=== PATIENT | male | born 1960 | race Caucasian/White ===

== ENCOUNTER → 2019-12-13 14:35 | Outpatient (BNVA) | payer OTHER, SELFPAY | PROVIDERS: Visit Provider Family Medicine Adult Medicine | DX: M54.12 Radiculopathy, cervical region (principal); M54.16 Radiculopathy, lumbar region; M25.511 Pain in right shoulder; F17.200 Nicotine dependence, unspecified, uncomplicated; Z79.891 Long term (current) use of opiate analgesic | CPT/HCPCS: 99214 ==

== ENCOUNTER → 2020-01-12 15:15 | Outpatient (BNVA) | payer OTHER, SELFPAY | PROVIDERS: PCP Internal Medicine; Visit Provider Family Medicine Adult Medicine | DX: M54.16 Radiculopathy, lumbar region (principal); M54.12 Radiculopathy, cervical region; Z79.891 Long term (current) use of opiate analgesic | CPT/HCPCS: 99212 ==

== ENCOUNTER 2020-01-24 13:55 | Outpatient (REF) | payer OTHER, SELFPAY | END 2020-01-24 13:56 | disposition home or self-care (01) | LOC: HO.LAB 13:55 | PROVIDERS: Visit Provider Internal Medicine | DX: Z20.828 Contact with and (suspected) exposure to other viral communicable diseases (principal) | CPT/HCPCS: C9803; U0003 ==

== ENCOUNTER 2020-01-25 10:00 | Outpatient (RCR) | payer OTHER, SELFPAY | END 2020-02-15 16:50 | disposition other institution (70) | LOC: HO.PT 10:00 | PROVIDERS: Visit Provider Physician Assistant | DX: M54.2 Cervicalgia (principal); M79.601 Pain in right arm; R20.0 Anesthesia of skin | CPT/HCPCS: 97014; 97110; 97112; 97140; 97162 ==

== ENCOUNTER → 2020-02-09 15:01 | Outpatient (BNVA) | payer OTHER, SELFPAY | PROVIDERS: Visit Provider Family Medicine Adult Medicine | DX: M54.16 Radiculopathy, lumbar region (principal); M54.12 Radiculopathy, cervical region | CPT/HCPCS: 99212 ==

== ENCOUNTER 2020-03-08 09:40 | Outpatient (REF) | payer OTHER, SELFPAY ==
[2020-03-08 10:25] LABS: MANUAL DIFF FLAG NO
[2020-03-08 10:30] LABS: Basophils Percent Auto 0.4 % (0-2); Eosinophils Absolute Auto 0.1 X10*3/uL (0.0-0.4); Hematocrit 46.3 % (42-52); Imm Gran Abs Auto 0.02 X10*3/uL (0.00-0.03); Imm Gran Pct Auto 0.2 % (0.0-0.4); Lymphocytes Absolute Auto 2.1 X10*3/uL (1.2-4.9); Lymphocytes Percent Auto 21.3 % (20-40); Mean Corpuscular HGB Conc 34.6 g/dl (31.0-36.0); Mean Corpuscular Hemoglobin 29.7 pg (27.0-33.0); Mean Corpuscular Volume 85.9 fL (80-98); Mean Platelet Volume 10.7 fL (9.4-12.4); Monocytes Absolute Auto 0.5 X10*3/uL (0.1-1.2); Monocytes Percent Auto 4.9 % (2-11); Neutrophils Percent Auto 72.2 % (45-73); Platelet Count 258 X10*3/uL (160-400); Red Blood Count 5.39 X10*6/uL (4.60-5.80); Red Cell Distribution Width 11.9 % (11.0-16.0); White Blood Count 9.6 X10*3/uL (4.8-10.8)
[2020-03-08 10:46] LABS: Glucose Urine UA >=1000 MG/DL (NEG); Leukocyte Esterase Urine NEG (NEG); Nitrite Urine NEG (NEG); Urine Blood TRACE (NEG); Urine Ketones NEG (NEG); Urine Protein NEG (NEG-TRACE)
[2020-03-08 10:47] LABS: Appearance Urine CLEAR; Color Urine YELLOW
[2020-03-08 11:02] LABS: Anion Gap 14 (12-20); Blood Urea Nitrogen 19 mg/dL (9-16); Carbon Dioxide 26 mmol/L (22-29); Chloride 105 mmol/L (96-108); Estimated Glomerular Filt Rate 49; Glucose Random 330 mg/dL (60-115); Potassium 4.3 mmol/l (3.3-5.1); Sodium 141 mmol/L (135-145)
[2020-03-08 11:05] LABS: Mucus Urine TRACE /LPF; RBC Urine 0 /HPF (0); Squamous Epithelial Cell Urine TRACE /LPF; WBC Urine 0-2 /HPF (0-4)
== END 2020-03-08 09:41 | disposition home or self-care (01) ==
LOC: HO.LAB 09:40
PROVIDERS: PCP Internal Medicine; Visit Provider Internal Medicine
DX: Z00.00 Encounter for general adult medical examination without abnormal findings (principal); R51.9 Headache, unspecified; N39.0 Urinary tract infection, site not specified
CPT/HCPCS: 36415; 80048; 81001; 85025

== ENCOUNTER 2020-03-12 09:31 | Outpatient (REF) | payer OTHER, SELFPAY | END 2020-03-12 09:32 | disposition home or self-care (01) | LOC: HO.LAB 09:31 | PROVIDERS: PCP Internal Medicine; Visit Provider Internal Medicine | DX: Z20.822 Contact with and (suspected) exposure to COVID-19 (principal) | CPT/HCPCS: 36415; C9803; U0003 ==

== ENCOUNTER → 2020-04-10 08:42 | Outpatient (BNVA) | payer OTHER, SELFPAY | PROVIDERS: Visit Provider Family Medicine Adult Medicine | DX: M54.16 Radiculopathy, lumbar region (principal); M54.12 Radiculopathy, cervical region; Z79.899 Other long term (current) drug therapy | CPT/HCPCS: 99212 ==

== ENCOUNTER → 2020-05-08 11:24 | Outpatient (BNVA) | payer OTHER, SELFPAY | PROVIDERS: Visit Provider Family Medicine Adult Medicine | DX: M54.16 Radiculopathy, lumbar region (principal); M54.12 Radiculopathy, cervical region; Z79.899 Other long term (current) drug therapy | CPT/HCPCS: 99212 ==

== ENCOUNTER 2020-06-06 13:59 | Outpatient (REF) | payer OTHER, SELFPAY | END 2020-06-06 14:00 | disposition home or self-care (01) | LOC: HO.HAP 13:59 | PROVIDERS: Visit Provider Internal Medicine | DX: Z46.1 Encounter for fitting and adjustment of hearing aid (principal) | CPT/HCPCS: V5266 ==

== ENCOUNTER → 2020-06-08 09:34 | Outpatient (BNVA) | payer OTHER, SELFPAY | PROVIDERS: PCP Internal Medicine; Visit Provider Nurse Practitioner Family | DX: M54.16 Radiculopathy, lumbar region (principal); M54.12 Radiculopathy, cervical region | CPT/HCPCS: 99212 ==

== ENCOUNTER 2020-06-18 09:38 | Outpatient (REF) | payer OTHER, SELFPAY ==
[2020-06-18 10:00] LABS: COVID-19 Test Negative (Negative)
== END 2020-06-18 09:39 | disposition home or self-care (01) ==
LOC: HO.LAB 09:38
PROVIDERS: Visit Provider Internal Medicine
DX: Z20.822 Contact with and (suspected) exposure to COVID-19 (principal)
CPT/HCPCS: 36415; 87635; C9803

== ENCOUNTER 2020-07-30 08:50 | Outpatient (REF) | payer OTHER, SELFPAY ==
--- NOTE | ~2020-07-30 | MR_ITS ---
EXAMINATION: MR LUMBAR SPINE WITHOUT CONTRAST CLINICAL INFORMATION: Lumbar radiculopathy. COMPARISON: None TECHNIQUE: MRI of the lumbar spine was obtained using routine sequences without contrast. FINDINGS: There is transitional lumbosacral anatomy with a hypoplastic disc seen at L5-S1. Lumbar vertebral bodies maintain normal heights and alignment. No significant disc height loss is seen. There is no subchondral endplate edema. The distal spinal cord appears normal. The conus medullaris terminates normally at the T12 level. A sacral Tarlov cyst is noted. Multiple bilateral T2 hyperintense renal cysts are noted (no follow-up recommended). The extraspinal soft tissues are otherwise within normal limits. SPINAL LEVELS: L1-L2: Mild disc bulging. No spinal canal or neural foraminal stenosis. L2-L3: Mild disc bulging. No spinal canal or neural foraminal stenosis. L3-L4: Disc bulging with mild facet arthropathy. Mild flattening the ventral thecal sac. Small right foraminal protrusion minimally narrowing the neural foramen. L4-L5: Disc bulging with mild facet arthropathy. No spinal canal stenosis. Shallow right foraminal protrusion mildly narrows the right neural foramen. L5-S1: Hypoplastic disc. No spinal canal or neural foraminal stenosis. MR/MR lumbar spine wo con IMPRESSION: Transitional lumbosacral anatomy with hypoplastic disc seen at L5-S1. Minimal spondylotic changes are noted without significant narrowing of the spinal canal or foraminal nerve root compression.
== END 2020-07-30 08:51 | disposition home or self-care (01) ==
LOC: HO.MRI 08:50
PROVIDERS: Visit Provider Neurological Surgery
DX: M54.16 Radiculopathy, lumbar region (principal)
CPT/HCPCS: 72148

== ENCOUNTER → 2020-07-31 08:01 | Outpatient (BNVA) | payer OTHER, SELFPAY | PROVIDERS: PCP Internal Medicine; Visit Provider Family Medicine Adult Medicine | DX: M54.16 Radiculopathy, lumbar region (principal); M54.12 Radiculopathy, cervical region | CPT/HCPCS: 99212 ==

== ENCOUNTER → 2020-08-28 10:29 | Outpatient (BNVA) | payer OTHER, SELFPAY | PROVIDERS: PCP Internal Medicine; Visit Provider Family Medicine Adult Medicine | DX: M54.16 Radiculopathy, lumbar region (principal); M54.12 Radiculopathy, cervical region | CPT/HCPCS: 99212 ==

== ENCOUNTER 2020-09-11 13:30 | Outpatient (REF) | payer OTHER, SELFPAY ==
[2020-09-11 14:08] LABS: MANUAL DIFF FLAG NO
[2020-09-11 14:20] LABS: Basophils Percent Auto 0.6 % (0-2); Eosinophils Absolute Auto 0.1 X10*3/uL (0.0-0.4); Eosinophils Percent Auto 1.3 % (0-4); Hematocrit 46.6 % (42-52); Hemoglobin 15.7 g/dl (14.0-18.0); Imm Gran Abs Auto 0.02 X10*3/uL (0.00-0.03); Imm Gran Pct Auto 0.3 % (0.0-0.4); Lymphocytes Absolute Auto 1.7 X10*3/uL (1.2-4.9); Lymphocytes Percent Auto 24.6 % (20-40); Mean Corpuscular HGB Conc 33.7 g/dl (31.0-36.0); Mean Corpuscular Hemoglobin 29.3 pg (27.0-33.0); Mean Corpuscular Volume 86.9 fL (80-98); Mean Platelet Volume 10.7 fL (9.4-12.4); Monocytes Absolute Auto 0.5 X10*3/uL (0.1-1.2); Monocytes Percent Auto 6.8 % (2-11); Neutrophils Absolute Auto 4.6 X10*3/uL (2.0-8.3); Neutrophils Percent Auto 66.4 % (45-73); Platelet Count 240 X10*3/uL (160-400); Red Blood Count 5.36 X10*6/uL (4.60-5.80); Red Cell Distribution Width 12.7 % (11.0-16.0); White Blood Count 6.9 X10*3/uL (4.8-10.8)
[2020-09-11 14:34] LABS: Anion Gap 18 (12-20); Blood Urea Nitrogen 11 mg/dL (9-16); Calcium 10.1 mg/dL (8.4-10.2); Carbon Dioxide 19 mmol/L (22-29); Chloride 109 mmol/L (96-108); Cholesterol 113 mg/dL; Estimated Glomerular Filt Rate 55; Glucose Random 108 mg/dL (60-115); HDL Cholesterol 30 mg/dL; LDL Cholesterol Calculated 60 mg/dl; Potassium 4.8 mmol/L (3.3-5.1); Sodium 141 mmol/L (135-145); Triglycerides 116 mg/dL
[2020-09-11 14:48] LABS: Creatinine Urine 150.39 mg/dL; Microalbum/Creatinine Ratio Ur 71.1 ug/mg cr
[2020-09-15 15:32] LABS: Testosterone, Free 57.6 pg/mL (35.0-155.0); Testosterone, Total 384 ng/dL (250-1100)
[2020-09-15 19:56] LABS: Vitamin D 25-OH, D2 <4 ng/mL; Vitamin D 25-OH, D3 31 ng/mL; Vitamin D 25-OH, Total 31 ng/mL (30-100)
== END 2020-09-11 13:31 | disposition home or self-care (01) ==
LOC: HO.LAB 13:30
PROVIDERS: Absent Provider Internal Medicine; PCP Internal Medicine; Visit Provider Internal Medicine
DX: I12.9 Hypertensive chronic kidney disease with stage 1 through stage 4 chronic kidney disease, or unspecified chronic kidney disease (principal); N18.31 Chronic kidney disease, stage 3a; E11.22 Type 2 diabetes mellitus with diabetic chronic kidney disease; E78.5 Hyperlipidemia, unspecified; D64.9 Anemia, unspecified; R21 Rash and other nonspecific skin eruption; N52.9 Male erectile dysfunction, unspecified; E55.9 Vitamin D deficiency, unspecified
CPT/HCPCS: 36415; 80048; 80061; 82043; 82306; 84402; 84403; 85025

== ENCOUNTER → 2020-09-25 11:03 | Outpatient (BNVA) | payer OTHER, SELFPAY | PROVIDERS: PCP Internal Medicine; Visit Provider Family Medicine Adult Medicine | DX: M54.16 Radiculopathy, lumbar region (principal); M54.12 Radiculopathy, cervical region | CPT/HCPCS: 99212 ==

== ENCOUNTER → 2020-10-23 13:14 | Outpatient (BNVA) | payer OTHER, SELFPAY | PROVIDERS: PCP Internal Medicine; Visit Provider Nurse Practitioner Family | DX: M54.16 Radiculopathy, lumbar region (principal); M54.12 Radiculopathy, cervical region; M25.511 Pain in right shoulder | CPT/HCPCS: 99212 ==

== ENCOUNTER → 2020-11-20 12:44 | Outpatient (BNVA) | payer OTHER, SELFPAY | PROVIDERS: PCP Internal Medicine; Visit Provider Family Medicine Adult Medicine | DX: Z51.81 Encounter for therapeutic drug level monitoring (principal); M54.16 Radiculopathy, lumbar region; M54.12 Radiculopathy, cervical region | CPT/HCPCS: 99212 ==

== ENCOUNTER → 2020-12-18 13:45 | Outpatient (BNVA) | payer OTHER, SELFPAY | PROVIDERS: PCP Internal Medicine; Visit Provider Family Medicine Adult Medicine | DX: M54.12 Radiculopathy, cervical region (principal); M54.16 Radiculopathy, lumbar region; F17.210 Nicotine dependence, cigarettes, uncomplicated | CPT/HCPCS: 99212 ==

== ENCOUNTER → 2021-01-15 13:37 | Outpatient (BNVA) | payer OTHER, SELFPAY | PROVIDERS: Visit Provider Family Medicine Adult Medicine | DX: Z51.81 Encounter for therapeutic drug level monitoring (principal); M54.16 Radiculopathy, lumbar region; M54.12 Radiculopathy, cervical region | CPT/HCPCS: 99212 ==

== ENCOUNTER 2021-01-17 13:48 | Outpatient (REF) | payer OTHER, SELFPAY | END 2021-01-17 13:49 | disposition home or self-care (01) | LOC: HO.HAP 13:48 | PROVIDERS: Visit Provider Internal Medicine | DX: Z46.1 Encounter for fitting and adjustment of hearing aid (principal); H90.3 Sensorineural hearing loss, bilateral | CPT/HCPCS: V5266 ==

== ENCOUNTER 2021-01-17 14:21 | Outpatient (REF) | payer SELFPAY | END 2021-01-17 14:22 | disposition home or self-care (01) | LOC: HO.HAP 14:21 | PROVIDERS: Visit Provider Internal Medicine | DX: Z46.1 Encounter for fitting and adjustment of hearing aid (principal); H90.3 Sensorineural hearing loss, bilateral | CPT/HCPCS: V5267 ==

== ENCOUNTER 2021-01-18 12:53 | Outpatient (REF) | payer OTHER, SELFPAY | END 2021-01-18 12:54 | disposition home or self-care (01) | LOC: HO.HAP 12:53 | PROVIDERS: PCP Internal Medicine; Visit Provider Internal Medicine | DX: Z46.1 Encounter for fitting and adjustment of hearing aid (principal); H90.3 Sensorineural hearing loss, bilateral | CPT/HCPCS: 92593 ==

== ENCOUNTER → 2021-01-25 11:07 | Outpatient (BNVA) | payer OTHER, SELFPAY | PROVIDERS: PCP Internal Medicine; Visit Provider Internal Medicine | DX: M54.16 Radiculopathy, lumbar region (principal); M47.816 Spondylosis without myelopathy or radiculopathy, lumbar region | CPT/HCPCS: 99202 ==

== ENCOUNTER 2021-03-06 07:46 | Outpatient (REF) | payer OTHER, SELFPAY ==
--- NOTE | ~2021-03-06 | FL_ITS ---
EXAMINATION: XR FLUOROSCOPY WITH IMAGES CLINICAL INFORMATION: M47.816 - Spondylosis without myelopathy or radiculopathy COMPARISON: MR lumbar spine 07/30/2020 TECHNIQUE: Fluoroscopy performed by Dr. Juan Vásquez. Fluoroscopy time: 0.4 minutes DAP: 1.40 Gycm2 Images: 3 FINDINGS: There are spinal needles overlying the bilateral outer L3, L4, and L5 neural foramen. There is contrast seen in the respective nerve sheaths. Some early transforaminal epidural extension is suggested. No visible vascular communication. FL/FL guidance in treatment room IMPRESSION: Fluoroscopy for pain management procedures.
== END 2021-03-06 07:47 | disposition home or self-care (01) ==
LOC: HO.RADIR 07:46
PROVIDERS: Visit Provider Internal Medicine
DX: M47.816 Spondylosis without myelopathy or radiculopathy, lumbar region (principal); Z79.899 Other long term (current) drug therapy; F17.210 Nicotine dependence, cigarettes, uncomplicated
CPT/HCPCS: 64493; 64494; Q9967

== ENCOUNTER → 2021-03-15 07:52 | Outpatient (BNVA) | payer OTHER, SELFPAY | PROVIDERS: PCP Internal Medicine; Visit Provider Internal Medicine | DX: E11.69 Type 2 diabetes mellitus with other specified complication (principal); N52.1 Erectile dysfunction due to diseases classified elsewhere; M47.816 Spondylosis without myelopathy or radiculopathy, lumbar region | CPT/HCPCS: 99202; 99212 ==

== ENCOUNTER 2021-03-18 11:42 | Outpatient (REF) | payer OTHER, SELFPAY ==
[2021-03-18 13:57] LABS: Binax Internal Control QC Valid; Binax Now Covid-19 Ag Positive (Negative)
== END 2021-03-18 11:43 | disposition home or self-care (01) ==
LOC: HO.LAB 11:42
PROVIDERS: Visit Provider Internal Medicine
DX: Z20.822 Contact with and (suspected) exposure to COVID-19 (principal)
CPT/HCPCS: 36415; C9803

== ENCOUNTER 2021-05-01 05:49 | Outpatient (REF) | payer OTHER, SELFPAY ==
--- NOTE | ~2021-05-01 | FL_ITS ---
EXAMINATION: XR FLUOROSCOPY WITH IMAGES CLINICAL INFORMATION: Spondylosis without myelopathy or radiculopathy. COMPARISON: None. TECHNIQUE: Fluoroscopy performed by Maria Teresa Montejo. Fluoroscopy time: 0.2 minutes DAP: 0.910 Gycm2 Images: 3 FINDINGS: There are needles positioned lateral to the bilateral L3 and L4 pedicles with contrast opacifying the soft tissues. The visualized vertebral heights and intervertebral disc spaces are normal. FL/FL guidance in treatment room IMPRESSION: Fluoroscopy was provided to the referring physician for pain management.
== END 2021-05-01 05:50 | disposition home or self-care (01) ==
LOC: HO.RADIR 05:49
PROVIDERS: Visit Provider Internal Medicine
DX: M47.816 Spondylosis without myelopathy or radiculopathy, lumbar region (principal); M54.16 Radiculopathy, lumbar region; F17.210 Nicotine dependence, cigarettes, uncomplicated
CPT/HCPCS: 64493; 64494; J1040; Q9967

== ENCOUNTER → 2021-05-03 09:14 | Outpatient (BNVA) | payer OTHER, SELFPAY | PROVIDERS: PCP Internal Medicine; Visit Provider Internal Medicine | DX: M47.816 Spondylosis without myelopathy or radiculopathy, lumbar region (principal); Z98.890 Other specified postprocedural states | CPT/HCPCS: Q3014 ==

== ENCOUNTER 2021-05-23 06:41 | Outpatient (REF) | payer OTHER, SELFPAY ==
[2021-05-23 08:00] LABS: Alanine Aminotransferase 34 U/L (0-40); Albumin Level 4.8 g/dL (3.5-5.0); Alkaline Phosphatase 56 U/L (39-117); Anion Gap 13 (12-20); Aspartate Amino Transferase 19 U/L (5-37); Bilirubin Total 0.9 mg/dL (0.0-1.0); Blood Urea Nitrogen 16 mg/dL (9-16); Calcium 10.6 mg/dL (8.4-10.2); Carbon Dioxide 26 mmol/L (22-29); Chloride 110 mmol/L (96-108); Cholesterol 114 mg/dL; Estimated Glomerular Filt Rate 47; Glucose Fasting 135 mg/dL (60-99); HDL Cholesterol 32 mg/dL; LDL Cholesterol Calculated 60 mg/dl; Sodium 144 mmol/L (135-145); Total Protein 7.5 g/dL (6.5-8.0); Triglycerides 112 mg/dL
[2021-05-23 09:19] LABS: Creatinine Urine 212.45 mg/dL; Microalbum/Creatinine Ratio Ur 84.2 ug/mg cr
== END 2021-05-23 06:42 | disposition home or self-care (01) ==
LOC: HO.LAB 06:41
PROVIDERS: PCP Internal Medicine; Visit Provider Internal Medicine
DX: E11.9 Type 2 diabetes mellitus without complications (principal); E78.5 Hyperlipidemia, unspecified
CPT/HCPCS: 36415; 80053; 80061; 82043

== ENCOUNTER 2021-06-13 10:58 | Outpatient (AMB) | payer OTHER, SELFPAY ==
--- NOTE | 2021-06-13 11:00 | MHC.OFFVIS ---
Intake Intake Visit Reasons: 3 mth follow up ED Intake Note: Patient is present for ed follow up Bookkeepers Supervisor Required: No Accompanied by: Self / Same As Patient Allergies No Known Allergies Allergy (Verified 04/27/23 09:03) HPI HPI Comments History of Present Illness Details Blas is a pleasant male. He is a patient of Dr. Carter. He is seen for the following urologic conditions - progress erectile dysfunction Yakut translation provided in office by qualified medical engineer Erectile dysfunction background diabetes Progressive diabetic - HbA1c 6.1 Symptoms progressive Able to obtain but cannot maintain erection Previously used sildenafil 50 mg Discussion today focused on daily low-dose tadalafil Prescription provided Review in 3 months [facility] Medical History (Updated 04/27/23 @ 09:26 by Opal Carter MD) Erectile dysfunction associated with type 2 diabetes mellitus Erectile dysfunction CKD (chronic kidney disease) stage 3, GFR 30-59 ml/min Lumbar spondylosis Microalbuminuria Erectile dysfunction CKD (chronic kidney disease) Dyslipidemia Essential hypertension Diabetes mellitus Smoker Right shoulder pain Lumbar radiculopathy Cervical radiculopathy History of heroin abuse Thoracic back pain Cervical pain Pain in right hand Pain in right knee Pain in right shoulder Surgical History Hx of neck surgery History of shoulder surgery History of hydrocelectomy Hx of cholecystectomy H/O shoulder surgery History of knee surgery H/O hand surgery Family History Father Esophageal cancer Mother Diabetes Hypertension Dementia Social History Household Members: Family Household Members Other:: lives w ex-, daughter & son lives upstairs Housing: House Do you presently have visiting nurse or other home services: No Alcohol intake: former Patient Tobacco Use Status: Current everyday Tobacco user Tobacco use type: Cigarette Cigarette Packs Per Day: 0.5 Cigarettes Per Day: 10 e-Cigarette/Vaping Use: Never Used Second Hand Smoke Exposure: Yes service: No Current occupational status: disabled 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 Cognitive needs: No Hearing needs: No Vision needs: Yes (glasses) Review of Systems Const Denies chills and Denies fever(s) Card Reports no additional complaints and Denies syncope Resp Denies cough GI Denies abdominal pain and Denies heartburn Reports as per HPI and Denies change in libido Neuro Denies syncope Psych Denies change in libido Endo Denies change in libido Physical Exam Const General: cooperative, healthy appearing, comfortable and no acute distress Orientation/consciousness: patient oriented x3 HEENT Face and sinus: Yes normal facial exam Mouth: moist mucous membranes Neck Neck: Yes normal visual inspection, Yes full ROM and Yes trachea midline Chest Chest palpation & inspection: normal inspection of the chest Resp Effort & Inspection: normal respiratory effort, able to speak in complete sentences and no respiratory distress GI Inspection: Yes normal to inspection Back/Spine/Pelvis Cervical Spine: normal cervical lordosis Thoracic/Lumbar Spine: thoracic and lumbar spine normal to inspection Skin General skin exam: no rashes or lesions noted Neuro General: patient oriented x3, gait normal, tone normal and moves all extremities Extrem General: Yes normal to inspection and Yes capillary refill normal Assessment & Plan Assessment & Plan (1) Erectile dysfunction associated with type 2 diabetes mellitus: Code(s): E11.69 - Type 2 diabetes mellitus with other specified complication; N52.1 - Erectile dysfunction due to diseases classified elsewhere Plan Trial tadalafil Medications: New tadalafil [facility] DR33 [id number] 5 mg PO DAILY PRN 90 tabs 1RF sexual activity 90 days N52.2 - Drug-induced erectile dysfunction, N48.6 - Induration penis plastica Patient Instructions: Imaging studies, laboratory and physical exam results were discussed and reviewed in detail. No major barriers to patient understanding were identified. An opportunity to ask questions regarding the treatment plan was provided. All questions were answered. The patient expressed understanding and agreement with the above treatment plan. The patient is aware they should contact our office by phone for worsening of their current condition or the appearance of new urologic symptoms. Compliance is encouraged with any medications and followup testing that is ordered. It is a privilege to participate in the urologic care of your patient. If you have any questions or concerns regarding treatment for the above conditions, or other urologic issues, please do not hesitate to contact me. The office telephone contact is [phone]. This note is constructed using voice recognition software. While every effort has been made to ensure accuracy rn transition errors may have been included. Yours sincerely, Dr Vinayak Kwong MD, [facility] - Urology Providers of Expert, Compassionate Care for the Genitourinary System Telehealth Telehealth Location of provider rendering services: practice address Location of patient: address on file Patient Identification confirmed using: Name, : Yes Telehealth method: voice only Patient verbally consented to treatment: Yes Patient verbally consented to billing insurance company: Yes Patient informed of any privacy concerns related to visit: Yes Coding Level of Care Code Est Pt Level 3 (87568) Diagnoses Erectile dysfunction associated with type 2 diabetes mellitus E11.69; N52.1
== END 2021-06-13 12:04 | disposition home or self-care (01) ==
LOC: HO.HUSH 10:58
PROVIDERS: PCP Internal Medicine; Visit Provider Urology
DX: E11.69 Type 2 diabetes mellitus with other specified complication (principal); N52.1 Erectile dysfunction due to diseases classified elsewhere
CPT/HCPCS: 99499

== ENCOUNTER → 2021-06-13 10:58 | Outpatient (BNVA) | payer OTHER, SELFPAY | PROVIDERS: PCP Internal Medicine; Visit Provider Urology | DX: Z13.89 Encounter for screening for other disorder (principal) ==

== ENCOUNTER 2021-07-31 09:14 | Day surgery (SDC) | payer OTHER, SELFPAY ==
--- NOTE | ~2021-07-31 | FL_ITS ---
EXAMINATION: XR FLUOROSCOPY WITH IMAGES CLINICAL INFORMATION: RFA COMPARISON: MR lumbar spine 07/30/2020 TECHNIQUE: Fluoroscopy performed by Dr. Vásquez. Fluoroscopy time: 0.4 minutes DAP: 1.11 Gycm2 Images: 3 FINDINGS: There are needles/electrodes overlying the outer right L3, L4, and L5 neural foramen. FL/FL guidance in OR IMPRESSION: Fluoroscopy for pain management procedures.
[2021-07-31 09:38] VITALS: BMI 23.7
[2021-07-31 12:10] VITALS: BP 135/89; PULSE 66; RESP 16; TEMP 36.7; O2SAT 100
--- NOTE | 2021-07-31 12:26 | MHC.SHP ---
Pre-Procedural Eval Section A Date of Service: 07/31/21 The patient is an INPATIENT: No Changes since office visit: Yes Patient answered all questions The History & Physical has been completed within 30 days and I have reviewed it.: No Section B Chief Complaint: Spondylosis without myelopathy or radiculopathy, l Allergies: Allergies Allergy/AdvReac Type Severity Reaction Status Date / Time No Known Allergies Allergy Verified 07/31/21 10:08 Plan Diagnosis/Plan: Unchanged I have reviewed the history and physical and performed a pertinent physical examination on my patient. No changes have occurred unless specified.
--- NOTE | 2021-07-31 12:27 | W.PM.OPN ---
Operative Note Operative Note Date of Service: 07/31/21 Narrative: Radiofrequency lesioning medial branch nerves, Right L3, L4 medial branches and L5 dorsal ramus (L4/5 and L5/S1) (2 levels, 3 nerves) After obtaining written consent, pre-procedure blood pressure and heart rate were stable and recorded in the nursing record. Standard monitors were applied. The patient was placed in the prone position. The lumbar area was prepped with chloraprep and draped in sterile fashion. The skin over the target for each medial branch nerve was anesthetized with 0.5% lidocaine. An 18 gauge radiofrequency cannula was advanced to each target site under fluoroscopic guidance. No paresthesias were elicited with needle placement and aspiration was negative for heme and CSF. Impedences were verified under 600 ohms. Sensory testing (50 Hz) and then motor testing (2 Hz) confirmed needle placement at each site within the appropriate voltage thresholds. Each site was injected with 1 ml 2% preservative-free lidocaine. Radiofrequency lesioning was performed for 90 seconds at 80 deg Celcius. Each site was then injected with 0.5ml 0.5% ropivacaine. The needle was removed, skin cleansed and a sterile bandage was applied. The patient tolerated the procedure well and no complications were encountered. Following the procedure the patient's vital signs were stable. The patient was discharged home in good condition with post-procedural instructions. Time Out: Immediately prior to the procedure, the following was verbally confirmed that there is a signed consent form and that the correct patient, planned procedure, site and side are consistent with documentation and that necessary equipment and/or blood products are available prior to the start of the case. Complications: none EBL: <5 cc
--- NOTE | 2021-07-31 12:27 | PM.OP ---
Brief Operative Note Date of Service: 07/31/21 Pre-op diagnosis: Lumbar spondylosis Post-op diagnosis: same Procedure: Lumbar medial branches L3/4, L4/5 and L5DR radiofrequency ablation Surgeon: Juan Vásquez MD Anesthesia: local Was an Assembler Installer General used for this Procedure?: No Estimated blood loss (mL): 1 Pathology: none sent Condition: stable Disposition: same day
== END 2021-07-31 12:28 | disposition home or self-care (01) ==
PROVIDERS: PCP Internal Medicine; Visit Provider Internal Medicine
PROC: (CPT 64635; principal; 2021-07-31 11:00)
DX: M47.816 Spondylosis without myelopathy or radiculopathy, lumbar region (principal); E11.22 Type 2 diabetes mellitus with diabetic chronic kidney disease; I12.9 Hypertensive chronic kidney disease with stage 1 through stage 4 chronic kidney disease, or unspecified chronic kidney disease; N18.30 Chronic kidney disease, stage 3 unspecified; N52.9 Male erectile dysfunction, unspecified; E78.5 Hyperlipidemia, unspecified; Z79.84 Long term (current) use of oral hypoglycemic drugs; Z79.899 Other long term (current) drug therapy; F17.210 Nicotine dependence, cigarettes, uncomplicated; F11.11 Opioid abuse, in remission
CPT/HCPCS: 64635; 64636; J2795

== ENCOUNTER → 2021-08-30 09:50 | Outpatient (BNVA) | payer OTHER, SELFPAY | PROVIDERS: PCP Internal Medicine; Visit Provider Internal Medicine | DX: M47.816 Spondylosis without myelopathy or radiculopathy, lumbar region (principal) | CPT/HCPCS: 99212 ==

== ENCOUNTER 2021-11-06 10:37 | Day surgery (SDC) | payer OTHER, SELFPAY ==
--- NOTE | ~2021-11-06 | FL_ITS ---
EXAMINATION: XR FLUOROSCOPY WITH IMAGES CLINICAL INFORMATION: Stimulator trial, lumbar COMPARISON: 07/31/2021 TECHNIQUE: Fluoroscopy performed by Dr. Juan Vásquez. Fluoroscopy time: 0.2 minutes. Cumulative Dose: 3.36 mGy. DAP: 0.593 Gy-cm2. Images: 2. FINDINGS: Radiopaque needle and wire in overlies the lower lumbar spine. This is seen at the right aspect at the L4-L5 level. FL/FL guidance in OR IMPRESSION: Fluoroscopic guidance for lumbar intervention. Please refer to procedural report for further information.
[2021-11-06 11:03] VITALS: BP 114/82; PULSE 81; RESP 16; TEMP 36.3; O2SAT 99; BMI 23.3
[2021-11-06] MEDS: LORazepam 1 MG TABLET PO (11:13)
[2021-11-06 12:35] VITALS: BP 113/72; PULSE 71; RESP 20; TEMP 37.1; O2SAT 99
--- NOTE | 2021-11-08 08:50 | MHC.SHP ---
Pre-Procedural Eval Section A Date of Service: 11/06/21 The patient is an INPATIENT: No Changes since office visit: Yes Patient answered all questions The History & Physical has been completed within 30 days and I have reviewed it.: Yes Section B Chief Complaint: Lumbar spondylosis, chronic pain syndrome Relevant Family History (Specify if Yes): No Relevant Social History: None Present Medications: None Medical History: Significant History History of Previous Operations: No relevant previous surgery Allergies: Allergies Allergy/AdvReac Type Severity Reaction Status Date / Time No Known Allergies Allergy Verified 08/30/21 10:01 Review of Systems Sugical H&P ROS: Negative: Constitution, Cardiovascular, Respiratory and Neurological Exam Surgical H&P Exam: Normal: HEENT, Normal: Heart and Normal: Lungs Plan Diagnosis/Plan: Unchanged I have reviewed the history and physical and performed a pertinent physical examination on my patient. No changes have occurred unless specified.
--- NOTE | 2021-11-08 08:52 | P.BOP_ITS ---
Brief Operative Note Date of Service: 11/06/21 Pre-op diagnosis: Lumbar spondylosis, chronic pain syndrome Post-op diagnosis: same Procedure: Temporary peripheral nerve stimulator placement at the L3 right medial branch nerve Implants: Sprint temporary peripheral nerve stimulation system Surgeon: Juan Vásquez MD Anesthesia: local Was an Herb Counselor used for this Procedure?: No Estimated blood loss (mL): 1 Pathology: none sent Condition: stable Disposition: same day
--- NOTE | 2021-11-08 08:53 | W.PM.OPN ---
Operative Note Operative Note Date of Service: 11/06/21 Narrative: Right L3 Lumbar Medial Branch Nerve Stimulation Lead Placement, SPR (Sprint) System ? After the risks, benefits and alternatives were discussed with the patient and informed consent was obtained, patient was placed in the prone position and padded to foster comfort. The skin overlying the lumbosacral spine was prepped and draped in sterile fashion. Fluoroscopy was used to identify the spinous process and lamina in the center of the patient?s region of pain. After identifying and marking the intended target along the course of the medial branch nerve, the skin around the planned entry point and the subcutaneous tissues were injected with lidocaine 1%. An introducer needle and stimulating probe were assembled, inserted and advanced along the intended course of the medial branch nerve as it traverses the lamina medial and inferior to the zygapophyseal joint, taking care to maintain the proper depth of insertion as the introducer is advanced under fluoroscopic guidance. The introducer needle was delivered to a location in proximity to the nerve. Multiple stimulation parameters were used to deliver stimulation to the target medial branch nerve in concert with stimulating at multiple positions around the nerve. Nerve target acquisition was confirmed noting generation of paresthesias in the paravertebral regions corresponding to the level being stimulated. Various electrical parameter combinations were tested, and the lead location was adjusted (physically relocated) until the patient indicated paresthesia/muscle tension overlapping the distribution of the patient?s typical region of pain. The stimulating probe was removed from the introducer and a percutaneous lead was guided through the needle and delivered to a location in similar proximity to the nerve. Final location was verified with electrical stimulation and documented with fluoroscopy. The introducer needle was removed, and the exposed end of the percutaneous lead was attached to an external stimulator unit. Various electrical parameter combinations were again tested until the patient indicated paresthesia or muscle tension overlapping the distribution of the patient?s typical region of pain. After confirming that lead impedance was in the normal range, the external unit was detached, the needle was removed, and the lead was anchored at the skin. The lead was threaded into the connector block and electrical continuity and desired patient response was confirmed. The connector block was attached to the external stimulator unit. The site was covered with a sterile occlusive dressing. The patient was observed for stability of vital signs and comfort.
== END 2021-11-06 13:03 | disposition home or self-care (01) ==
PROVIDERS: PCP Internal Medicine; Visit Provider Internal Medicine
PROC: (CPT 64555; principal; 2021-11-06 11:40)
DX: M47.816 Spondylosis without myelopathy or radiculopathy, lumbar region (principal); M62.830 Muscle spasm of back; G89.4 Chronic pain syndrome; Z79.84 Long term (current) use of oral hypoglycemic drugs; Z79.899 Other long term (current) drug therapy; F11.11 Opioid abuse, in remission; F17.210 Nicotine dependence, cigarettes, uncomplicated; Z98.890 Other specified postprocedural states
CPT/HCPCS: 64555; C1778

== ENCOUNTER → 2021-11-15 09:46 | Outpatient (BNVA) | payer OTHER, SELFPAY | PROVIDERS: PCP Internal Medicine; Visit Provider Internal Medicine | DX: M47.816 Spondylosis without myelopathy or radiculopathy, lumbar region (principal) | CPT/HCPCS: 99212 ==

== ENCOUNTER 2022-01-03 07:17 | Outpatient (REF) | payer OTHER, SELFPAY ==
[2022-01-03 08:59] LABS: Alanine Aminotransferase 29 U/L (0-40); Albumin Level 4.5 g/dL (3.5-5.0); Alkaline Phosphatase 53 U/L (39-117); Anion Gap 14 (12-20); Aspartate Amino Transferase 18 U/L (5-37); Bilirubin Total 0.7 mg/dL (0.0-1.0); Blood Urea Nitrogen 13 mg/dL (9-16); Calcium 9.4 mg/dL (8.4-10.2); Carbon Dioxide 26 mmol/L (22-29); Chloride 107 mmol/L (96-108); Cholesterol 105 mg/dL; Estimated Glomerular Filt Rate 52; Glucose Fasting 125 mg/dL (60-99); HDL Cholesterol 34 mg/dL; LDL Cholesterol Calculated 59 mg/dl; Potassium 4.7 mmol/L (3.3-5.1); Sodium 142 mmol/L (135-145); Total Protein 6.8 g/dL (6.5-8.0); Triglycerides 63 mg/dL
[2022-01-03 13:13] LABS: Microalbum/Creatinine Ratio Ur 70.3 ug/mg cr
== END 2022-01-03 07:18 | disposition home or self-care (01) ==
LOC: HO.LAB 07:17
PROVIDERS: PCP Internal Medicine; Visit Provider Nurse Practitioner Family
DX: E78.5 Hyperlipidemia, unspecified (principal); N18.30 Chronic kidney disease, stage 3 unspecified; E11.69 Type 2 diabetes mellitus with other specified complication; N52.1 Erectile dysfunction due to diseases classified elsewhere
CPT/HCPCS: 36415; 80053; 80061; 82043; Q3014

== ENCOUNTER → 2022-01-10 09:11 | Outpatient (BNVA) | payer OTHER, SELFPAY | PROVIDERS: PCP Internal Medicine; Visit Provider Nurse Practitioner Family | DX: M47.816 Spondylosis without myelopathy or radiculopathy, lumbar region (principal); Z45.89 Encounter for adjustment and management of other implanted devices | CPT/HCPCS: 99212 ==

== ENCOUNTER → 2022-05-12 13:42 | Outpatient (BNVA) | payer OTHER, SELFPAY | PROVIDERS: PCP Internal Medicine; Visit Provider Internal Medicine | DX: M54.16 Radiculopathy, lumbar region (principal) | CPT/HCPCS: 99212 ==

== ENCOUNTER 2022-07-09 05:59 | Outpatient (REF) | payer OTHER, SELFPAY ==
--- NOTE | ~2022-07-09 | FL_ITS ---
EXAMINATION: XR FLUOROSCOPY WITH IMAGES CLINICAL INFORMATION: M54.16 - Radiculopathy, lumbar region COMPARISON: MR lumbar spine 07/30/2020; CT abdomen and pelvis 03/08/2019. TECHNIQUE: Fluoroscopy Supervised By: Dr. Juan Vásquez. Fluoroscopy Time: 0.4 minutes. Cumulative Dose: 6.93 mGy. DAP: 0.831 Gycm2. Images: 7. 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 There is a spinal needle at the outer right 1st presacral neural foramen with transforaminal epidural contrast. No visible vascular communication. Another spinal needle is seen overlying the upper and mid right SI joint. FL/FL guidance in treatment room IMPRESSION: Fluoroscopy for pain management procedures.
== END 2022-07-09 06:00 | disposition home or self-care (01) ==
LOC: CF 05:59
PROVIDERS: Visit Provider Internal Medicine
DX: M54.16 Radiculopathy, lumbar region (principal); Q76.49 Other congenital malformations of spine, not associated with scoliosis; M54.12 Radiculopathy, cervical region; M54.6 Pain in thoracic spine; M79.18 Myalgia, other site
CPT/HCPCS: 20552; 64483; J1100; J3301

== ENCOUNTER → 2022-07-10 11:41 | Outpatient (BNVA) | payer OTHER, SELFPAY | PROVIDERS: PCP Internal Medicine; Visit Provider Urology | DX: E11.69 Type 2 diabetes mellitus with other specified complication (principal); N52.1 Erectile dysfunction due to diseases classified elsewhere | CPT/HCPCS: 99212 ==

== ENCOUNTER → 2022-08-08 07:43 | Outpatient (BNVA) | payer OTHER, SELFPAY | PROVIDERS: PCP Internal Medicine; Visit Provider Internal Medicine | DX: Q76.49 Other congenital malformations of spine, not associated with scoliosis (principal); M54.16 Radiculopathy, lumbar region | CPT/HCPCS: 99212 ==

== ENCOUNTER 2022-09-25 14:28 | Outpatient (AMB) | payer OTHER, SELFPAY ==
--- NOTE | 2022-09-25 14:42 | MHC.PC.OV ---
Vital Signs 09/25/22 14:48 Height 6 ft Weight 178 lb BMI 24.1 BP 126/80 Blood Pressure Location Lt brachial Position Sitting Intake Visit Reasons: PE Intake Note: Patient here for a physical exam Magnetic Locater Required: No Accompanied by: Self / Same As Patient Allergies No Known Allergies Allergy (Verified 09/25/22 14:58) Medication List - Last Reconciled 09/25/22 by Opal Carter MD amlodipine 5 mg PO DAILY blood sugar diagnostic (FreeStyle Lite Strips) USE 1 TEST STRIP ONCE DAILY blood-glucose meter (FreeStyle [place] kit) As directed hydroxyzine HCl 25 mg PO Q8H PRN lancets (FreeStyle Lancets) Use 1 lancet once a day lisinopril 10 mg (2 x 5 mg) PO DAILY 30 days naloxone 4 mg/actuation (Narcan) 4 mg intranasal Q2M PRN 1 day rosuvastatin 40 mg PO DAILY tadalafil 5 mg PO DAILY 90 days tadalafil 20 mg PO ONCE PRN 30 days Tobacco use date assessed: 04/01/22 Dental Screening Dental Screen Date: 09/25/22 Did you have a dental visit in the last 12 months?: Yes Did you have a dental problem in the last 6 months where you did not have access to dental care?: No Was dental information given to patient?: Patient has dentist HPI HPI Comments History of Present Illness Details This is a 61-year-old male with diabetes mellitus type 2 that comes for his physical exam. A1c within goal with low-carbohydrate diet. Denies any polyuria or polydipsia. Last colonoscopy was 2 years ago at [facility] a any was normal as per patient. [facility] Medical History (Updated 09/25/22 @ 15:51 by Opal Carter MD) Cervical pain Cervical radiculopathy CKD (chronic kidney disease) CKD (chronic kidney disease) stage 3, GFR 30-59 ml/min Diabetes mellitus Dyslipidemia Erectile dysfunction Erectile dysfunction Essential hypertension History of heroin abuse Lumbar radiculopathy Lumbar spondylosis Microalbuminuria Pain in right hand Pain in right knee Pain in right shoulder Right shoulder pain Smoker Thoracic back pain Surgical History H/O hand surgery H/O shoulder surgery History of hydrocelectomy History of knee surgery History of shoulder surgery Hx of cholecystectomy Hx of neck surgery Family History Father Esophageal cancer Mother Diabetes Hypertension Dementia Social History Household Members Other:: lives w ex-, daughter & son lives upstairs Housing: House Alcohol intake: never Patient Tobacco Use Status: Current everyday Tobacco user Tobacco use type: Cigarette Cigarette Packs Per Day: 0.5 Cigarettes Per Day: 10 e-Cigarette/Vaping Use: Never Used Second Hand Smoke Exposure: No service: No Current occupational status: disabled 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 Levi Palomares, Hannah Richard, Daniel Hicks and colleagues, with an educational evelyne from [employer]. Review of Systems Const All systems reviewed & are unremarkable except as noted in HPI and below Eyes Reports no additional complaints, Denies change in vision and Denies other visual disturbances Card Denies chest pain at rest, Denies chest pain with activity, Denies edema, Denies irregular heart rhythm, Denies claudication, Denies dyspnea, Denies dyspnea on exertion, Denies orthopnea, Denies paroxysmal nocturnal dyspnea and Denies slow heart rate Resp Denies cough, Denies dyspnea and Denies dyspnea on exertion GI Denies abdominal pain, Denies change in bowel habits, Denies excessive flatus, Denies nausea and Denies vomiting Denies urinary hesitancy, Denies urinary incontinence and Denies urinary urgency Musc Denies abnormal gait, Denies atrophy, Denies deformity and Denies limited range of motion Skin/Breast Denies bleeding lesions, Denies changing lesions and Denies rash Neuro Denies abnormal gait, Denies behavioral changes, Denies confusion and Denies lack of coordination Psych Denies behavioral changes and Denies confusion Physical exam (Primary Care) Vital Signs: Last Vital Signs BP 126/80 09/25/22 14:48 BMI result Body Mass Index 24.1 Tobacco/Smoking Status: Tobacco use Status Tobacco use date assessed 04/01/22 09/25/22 14:46 Patient Tobacco Use Status Current everyday Tobacco 09/25/22 14:46 Tobacco use type Cigarette 09/25/22 14:46 e-Cigarette/Vaping Use Never Used 09/25/22 14:46 Thrive Assessment: Date of Thrive Assessment Date Thrive assessed 04/01/22 09/25/22 14:46 Const General: No confusion Orientation/consciousness: patient oriented x3 and No confusion HENMT Head: Yes normal to inspection, Yes normocephalic and Yes atraumatic Ears: external ears normal General nose exam: Normal external nose present and No nasal discharge present Face and sinus: Yes sinuses nontender Mouth: lip normal Eyes General: appearance normal, both eyes and all related structures Eyelids: Yes eyelids normal Conjunctivae: conjunctivae normal Neck Neck: Yes normal visual inspection and Yes supple Resp Effort & Inspection: normal respiratory effort Auscultation: clear to auscultation bilaterally Cardio Jugular venous distension: no JVD Rate: regular rate Rhythm: regular rhythm Heart sounds: S1 normal heart sound present and S2 normal heart sound present GI Inspection: Yes normal to inspection Palpation (GI): Soft to palpation and nontender Auscultation: normal bowel sounds Skin General skin exam: no rashes or lesions noted Neuro General: patient oriented x3, no focal motor deficits and No confusion Extrem General: Yes full ROM Psych Appearance: grossly normal Results AMB Hemoglobin A1c AMB Hemoglobin A1c 6.1 % Last Edit by FLORIN Franco on 09/25/22 15:04 Results Reviewed Results Reviewed: Laboratory Last Values Hgb A1c (Clinic) 6.1 % (4.0-6.0) H 09/25/22 14:42 Assessment and Plan Assessment & Plan (1) Physical exam: Code(s): Z00.00 - Encounter for general adult medical examination without abnormal findings Plan: Repeat in a year (2) Diabetes mellitus: Code(s): E11.9 - Type 2 diabetes mellitus without complications Qualifiers: Diabetes mellitus type: type 2 Diabetes mellitus nursing home insulin use: without watermelon harvesting supervisor use Diabetes mellitus complication status: with hyperglycemia Qualified Code(s): E11.65 - Type 2 diabetes mellitus with hyperglycemia Plan: Continue low-carbohydrate diet. A1c goal is equal or less than 7% Orders: Orders Comprehensive [place]. Panel Fast Today N18.30 - Chronic kidney disease, stage 3 unspecified Lipid Panel Today E78.5 - Hyperlipidemia, unspecified Microalbumin, Random (w Creat) Today E11.9 - Type 2 diabetes mellitus without complications AMB Hemoglobin A1c Today E11.9 - Type 2 diabetes mellitus without complications Medications: New amoxicillin-pot clavulanate 875-125 mg 1 tab PO BID 14 tabs 0RF 7 days Refilled blood sugar diagnostic (FreeStyle Lite Strips) USE 1 TEST STRIP ONCE DAILY 50 strips 11RF Coding Level of Care Code Est Pt Prev Care 40-64y(34310) Diagnoses Physical exam Z00.00 Diabetes mellitus E11.65 Diabetes mellitus type: type 2 Diabetes mellitus watermelon harvesting supervisor insulin use: without watermelon harvesting supervisor use Diabetes mellitus complication status: with hyperglycemia Time Spent (min) 31
[2022-09-25 14:48] VITALS: BP 126/80; BMI 24.1
== END 2022-09-25 15:08 | disposition home or self-care (01) ==
PROVIDERS: PCP Internal Medicine; Visit Provider Internal Medicine
DX: Z00.00 Encounter for general adult medical examination without abnormal findings (principal); E11.65 Type 2 diabetes mellitus with hyperglycemia; E11.9 Type 2 diabetes mellitus without complications
CPT/HCPCS: 83036; 99396

== ENCOUNTER 2022-09-26 08:26 | Outpatient (REF) | payer OTHER, SELFPAY ==
[2022-09-26 10:06] LABS: Creatinine Urine 97.67 mg/dL; Microalbum/Creatinine Ratio Ur 114.6 ug/mg cr
[2022-09-26 10:09] LABS: Alanine Aminotransferase 46 U/L (0-40); Albumin Level 4.6 g/dL (3.5-5.0); Alkaline Phosphatase 52 U/L (39-117); Anion Gap 12 (12-20); Aspartate Amino Transferase 26 U/L (5-37); Bilirubin Total 0.6 mg/dL (0.0-1.0); Blood Urea Nitrogen 11 mg/dL (9-16); Calcium 10.3 mg/dL (8.4-10.2); Carbon Dioxide 29 mmol/L (22-29); Chloride 104 mmol/L (96-108); Cholesterol 97 mg/dL; Estimated Glomerular Filt Rate 51; Glucose Fasting 92 mg/dL (60-99); HDL Cholesterol 29 mg/dL; LDL Cholesterol Calculated 39 mg/dl; Potassium 5.2 mmol/L (3.3-5.1); Sodium 140 mmol/L (135-145); Total Protein 7.4 g/dL (6.5-8.0); Triglycerides 148 mg/dL
== END 2022-09-26 08:27 | disposition home or self-care (01) ==
LOC: HO.LAB 08:26
PROVIDERS: PCP Internal Medicine; Visit Provider Internal Medicine
DX: E11.9 Type 2 diabetes mellitus without complications (principal); E78.5 Hyperlipidemia, unspecified
CPT/HCPCS: 36415; 80053; 80061; 82043

== ENCOUNTER 2022-10-10 11:02 | Outpatient (AMB) | payer OTHER, SELFPAY ==
--- NOTE | 2022-10-10 11:02 | A.OFFVIS_ITS ---
Intake Intake Visit Reasons: Erectile Dys-3m follow up Intake Note: Patient is present for Telephone follow up Urology Med: Tadalafil Antibiotic Allergy: None Blood Thinner: None [facility] Allergies No Known Allergies Allergy (Verified 10/10/22 11:03) Medication List - Last Reconciled 10/10/22 by Vinayak Kwong MD amlodipine 5 mg PO DAILY amoxicillin-pot clavulanate 875-125 mg 1 tab PO BID 7 days blood sugar diagnostic (FreeStyle Lite Strips) USE 1 TEST STRIP ONCE DAILY blood sugar diagnostic (OneTouch Ultra Test strips) Use 1 test strip once a day blood-glucose meter (FreeStyle [place] kit) As directed blood-glucose meter (OneTouch Ultra2 Meter) As directed hydroxyzine HCl 25 mg PO Q8H PRN lancets (OneTouch UltraSoft 2 Lancet) Use 1 lancet once a day lancets (FreeStyle Lancets) Use 1 lancet once a day lisinopril 10 mg (2 x 5 mg) PO DAILY 30 days naloxone 4 mg/actuation (Narcan) 4 mg intranasal Q2M PRN 1 day rosuvastatin 40 mg PO DAILY tadalafil 20 mg PO ONCE PRN 30 days tadalafil 5 mg PO DAILY 90 days HPI HPI Comments History of Present Illness Details Blas is a pleasant male. He is a patient of Dr. Carter. He is seen for the following urologic conditions - progressive erectile dysfunction Telemedicine Evaluation 15 min Consultation [employer] Lora Video attempted Three month follow-up - daily tadalafil with 20 mg on demand Good response to combination therapy daily plus on demand Six month follow-up PSA Erectile dysfunction background diabetes Progressive diabetic - HbA1c 6.1 Symptoms progressive Able to obtain but cannot maintain erection Previously used sildenafil 50 mg Current medication 5 mg daily tadalafil, 20 mg on Atherosclerotic Cardiovascular Risk Assessment Dyslipidemia - treatment with high-intensity statins rosuvastatin 40 mg daily Diabetes - management with low-carbohydrate diet, prior metformin - HBA1c 11/28 5.8 Hypertension - lisinopril [facility] Medical History (Updated 10/10/22 @ 11:15 by Vinayak Kwong MD) Cervical pain Cervical radiculopathy CKD (chronic kidney disease) CKD (chronic kidney disease) stage 3, GFR 30-59 ml/min Diabetes mellitus Dyslipidemia Erectile dysfunction Erectile dysfunction Essential hypertension History of heroin abuse Lumbar radiculopathy Lumbar spondylosis Microalbuminuria Pain in right hand Pain in right knee Pain in right shoulder Right shoulder pain Smoker Thoracic back pain Surgical History H/O hand surgery H/O shoulder surgery History of hydrocelectomy History of knee surgery History of shoulder surgery Hx of cholecystectomy Hx of neck surgery Family History Father Esophageal cancer Mother Diabetes Hypertension Dementia Social History Household Members Other:: lives w ex-, daughter & son lives upstairs Housing: House Alcohol intake: never Patient Tobacco Use Status: Current everyday Tobacco user Tobacco use type: Cigarette Cigarette Packs Per Day: 0.5 Cigarettes Per Day: 10 e-Cigarette/Vaping Use: Never Used Second Hand Smoke Exposure: No service: No Current occupational status: disabled 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 Cognitive needs: No Hearing needs: No Vision needs: Yes Review of Systems Const All systems reviewed & are unremarkable except as noted in HPI and below Reports no additional complaints Resp Reports no additional complaints GI Reports no additional complaints Reports as per HPI Musc Reports no additional complaints Physical Exam Telemedicine evaluation Appropriate responses Regular breathing rate and rhythm HEENT Head: Yes normal to inspection Ears: hearing grossly normal bilaterally Eyes General: appearance normal, both eyes and all related structures Neck Neck: Yes normal visual inspection Chest Chest palpation & inspection: normal inspection of the chest Resp Effort & Inspection: normal respiratory effort and able to speak in complete sentences Assessment & Plan Assessment & Plan (1) Erectile dysfunction associated with type 2 diabetes mellitus: Code(s): E11.69 - Type 2 diabetes mellitus with other specified complication; N52.1 - Erectile dysfunction due to diseases classified elsewhere Plan Six month follow-up Orders: Orders Prostate Specific Antigen 6 Months N52.2 - Drug-induced erectile dysfunction Patient Instructions: Imaging studies, laboratory and physical exam results were discussed and reviewed in detail. No major barriers to patient understanding were identified. An opportunity to ask questions regarding the treatment plan was provided. All questions were answered. The patient expressed understanding and agreement with the above treatment plan. The patient is aware they should contact our office by phone for worsening of their current condition or the appearance of new urologic symptoms. Compliance is encouraged with any medications and followup testing that is ordered. It is a privilege to participate in the urologic care of your patient. If you wen ve any questions or concerns regarding treatment for the above conditions, or other urologic issues, please do not hesitate to contact me. The office telephone contact is [phone]. This note is constructed using voice recognition software. While every effort has been made to ensure accuracy crusher setter errors may have been included. Yours sincerely, Dr Vinayak Kwong MD, [facility] - Urology Providers of Expert, Compassionate Care for the Genitourinary System Telehealth Telehealth Location of provider rendering services: practice address Location of patient: address on file Patient Identification confirmed using: Name, : Yes Telehealth method: voice only Patient verbally consented to treatment: Yes Patient verbally consented to billing insurance company: Yes Patient informed of any privacy concerns related to visit: Yes Coding Level of Care Code Tele Est Pt Level 3 (49818) Diagnoses Erectile dysfunction associated with type 2 diabetes mellitus E11.69; N52.1
== END 2022-10-10 11:18 | disposition home or self-care (01) ==
LOC: HO.HUSH 11:02
PROVIDERS: PCP Internal Medicine; Visit Provider Urology
DX: E11.69 Type 2 diabetes mellitus with other specified complication (principal); N52.1 Erectile dysfunction due to diseases classified elsewhere
CPT/HCPCS: 99442

== ENCOUNTER → 2022-10-10 11:02 | Outpatient (BNVA) | payer OTHER, SELFPAY | PROVIDERS: PCP Internal Medicine; Visit Provider Urology ==

== ENCOUNTER 2022-10-30 07:19 | Outpatient (REF) | payer OTHER, SELFPAY ==
[2022-10-30 08:26] LABS: Alanine Aminotransferase 37 U/L (0-40); Albumin Level 4.6 g/dL (3.5-5.0); Alkaline Phosphatase 48 U/L (39-117); Anion Gap 11 (12-20); Aspartate Amino Transferase 24 U/L (5-37); Bilirubin Total 0.8 mg/dL (0.0-1.0); Blood Urea Nitrogen 14 mg/dL (9-16); Carbon Dioxide 26 mmol/L (22-29); Chloride 111 mmol/L (96-108); Cholesterol 102 mg/dL (<200); Estimated Glomerular Filt Rate 56; Glucose Fasting 105 mg/dL (60-99); HDL Cholesterol 30 mg/dL (>40); LDL Cholesterol Calculated 53 mg/dL (<100); Potassium 3.9 mmol/L (3.3-5.1); Sodium 144 mmol/L (135-145); Total Protein 7.1 g/dL (6.5-8.0); Triglycerides 95 mg/dL (<150)
[2022-10-30 11:42] LABS: Creatinine Urine 205.88 mg/dL; Microalbum/Creatinine Ratio Ur 95.6 ug/mg cr (<30)
== END 2022-10-30 07:20 | disposition home or self-care (01) ==
LOC: HO.LAB 07:19
PROVIDERS: PCP Internal Medicine; Visit Provider Internal Medicine
DX: E11.22 Type 2 diabetes mellitus with diabetic chronic kidney disease (principal); N18.30 Chronic kidney disease, stage 3 unspecified; E78.5 Hyperlipidemia, unspecified; E87.5 Hyperkalemia
CPT/HCPCS: 36415; 80053; 80061; 82043

== ENCOUNTER 2023-02-02 13:31 | Outpatient (AMB) | payer OTHER, SELFPAY ==
[2023-02-02 13:56] VITALS: BP 130/80; BMI 23.2
--- NOTE | 2023-02-02 13:56 | A.OFFPC_ITS ---
Vital Signs 02/02/23 13:56 Height 6 ft Weight 171 lb BMI 23.2 BP 130/80 Blood Pressure Location Lt brachial Position Sitting Intake Visit Reasons: dm Intake Note: Patient here for a follow up DM Immigration Case Worker Required: No Accompanied by: Self / Same As Patient Allergies No Known Allergies Allergy (Verified 02/02/23 14:22) Medication List - Last Reconciled 02/02/23 by Opal Carter MD amlodipine 5 mg PO DAILY blood sugar diagnostic (FreeStyle Lite Strips) USE 1 TEST STRIP ONCE DAILY blood sugar diagnostic (OneTouch Ultra Test strips) Use 1 test strip once a day blood-glucose meter (FreeStyle [place] kit) As directed blood-glucose meter (OneTouch Ultra2 Meter) As directed gabapentin 800 mg PO TID hydroxyzine HCl 25 mg PO Q8H PRN lancets (OneTouch UltraSoft 2 Lancet) Use 1 lancet once a day lancets (FreeStyle Lancets) Use 1 lancet once a day lisinopril 10 mg (2 x 5 mg) PO DAILY 30 days naloxone 4 mg/actuation (Narcan) 4 mg intranasal Q2M PRN 1 day rosuvastatin 40 mg PO DAILY tadalafil 20 mg PO ONCE PRN 30 days tadalafil 5 mg PO DAILY 90 days Tobacco use date assessed: 04/01/22 Fall risk assessment: No Falls in past year Last assessed Fall Risk: 02/02/23 Dental Screening Dental Screen Date: 02/02/23 Did you have a dental visit in the last 12 months?: Yes Did you have a dental problem in the last 6 months where you did not have access to dental care?: No Was dental information given to patient?: Patient has dentist HPI HPI Comments History of Present Illness Details This is a 62-year-old male with diabetes mellitus controlled with diet, hypertension, dyslipidemia and lumbar radiculopathy that comes today for follow- up on his conditions. A1c within goal. Blood pressure stable. Cholesterol well control. Lumbar radiculopathy is follow by pain management and is on gabapentin for this matter which reports no side effects. No chest pain or shortness of breath. [facility] Medical History CKD (chronic kidney disease) stage 3, GFR 30-59 ml/min Lumbar spondylosis Microalbuminuria Erectile dysfunction Erectile dysfunction CKD (chronic kidney disease) Dyslipidemia Essential hypertension Diabetes mellitus Smoker Right shoulder pain Lumbar radiculopathy Cervical radiculopathy History of heroin abuse Thoracic back pain Cervical pain Pain in right hand Pain in right knee Pain in right shoulder Surgical History Hx of neck surgery History of shoulder surgery History of hydrocelectomy Hx of cholecystectomy H/O shoulder surgery History of knee surgery H/O hand surgery Family History Father Esophageal cancer Mother Diabetes Hypertension Dementia Household Members Other:: lives w ex-, daughter & son lives upstairs Housing: House Alcohol intake: never Patient Tobacco Use Status: Current everyday Tobacco user Tobacco use type: Cigarette Cigarette Packs Per Day: 0.5 Cigarettes Per Day: 10 e-Cigarette/Vaping Use: Never Used Second Hand Smoke Exposure: No service: No Current occupational status: disabled 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 Levi Palomares, Hannah Richard, Daniel Hicks and colleagues, with an educational evelyne from [employer]. Review of Systems Const All systems reviewed & are unremarkable except as noted in HPI and below Eyes Reports no additional complaints, Denies change in vision and Denies other visual disturbances Card Denies chest pain at rest, Denies chest pain with activity, Denies edema, Denies irregular heart rhythm, Denies claudication, Denies dyspnea, Denies dyspnea on exertion, Denies orthopnea, Denies paroxysmal nocturnal dyspnea and Denies slow heart rate Resp Denies cough, Denies dyspnea and Denies dyspnea on exertion GI Denies abdominal pain, Denies change in bowel habits, Denies excessive flatus, Denies nausea and Denies vomiting Denies urinary hesitancy, Denies urinary incontinence and Denies urinary urgency Musc Denies abnormal gait, Denies atrophy, Denies deformity and Denies limited range of motion Skin/Breast Denies bleeding lesions, Denies changing lesions and Denies rash Neuro Denies abnormal gait and Denies lack of coordination Physical exam (Primary Care) Vital Signs: Last Vital Signs BP 130/80 02/02/23 13:56 BMI result Body Mass Index 23.2 Tobacco/Smoking Status: Tobacco use Status Tobacco use date assessed 04/01/22 02/02/23 13:58 Patient Tobacco Use Status Current everyday Tobacco 02/02/23 13:58 Tobacco use type Cigarette 02/02/23 13:58 e-Cigarette/Vaping Use Never Used 02/02/23 13:58 Thrive Assessment: Date of Thrive Assessment Date Thrive assessed 04/01/22 02/02/23 13:58 Eyes General: appearance normal, both eyes and all related structures Eyelids: Yes eyelids normal Conjunctivae: conjunctivae normal Neck Neck: Yes normal visual inspection and Yes supple Resp Effort & Inspection: normal respiratory effort Auscultation: clear to auscultation bilaterally Cardio Jugular venous distension: no JVD Rate: regular rate Rhythm: regular rhythm Heart sounds: S1 normal heart sound present and S2 normal heart sound present Extrem General: Yes full ROM Office Procedures Flu Questionnaire Does the patient have a severe egg allergy?: No Results AMB Hemoglobin A1c AMB Hemoglobin A1c 5.8 % Last Edit by FLORIN Franco on 02/02/23 14:1 3 Immunizations flu vacc [id number] 6mos up(PF) 60 mcg(15 mcgx4)/0.5 mL IM syringe Performing Provider: Opal Carter MD [facility] Documented (not given) by: FLORIN Franco on 02/02/23 14:02 Reason Not Given: Patient Refused Results Reviewed Results Reviewed: Laboratory Last Values Hgb A1c (Clinic) 5.8 % (4.0-6.0) 02/02/23 14:01 Assessment and Plan Assessment & Plan (1) Diabetes mellitus: Code(s): E11.9 - Type 2 diabetes mellitus without complications Qualifiers: Diabetes mellitus type: type 2 Diabetes mellitus superintendent container terminal insulin use: without jail use Diabetes mellitus complication status: with hyperglycemia Qualified Code(s): E11.65 - Type 2 diabetes mellitus with hyperglycemia Plan: Continue diet. A1c goal is equal or less than 7%. (2) Essential hypertension: Code(s): I10 - Essential (primary) hypertension Plan: Continue amlodipine and lisinopril. Blood pressure goal is equal or less than 130/80. (3) Dyslipidemia: Code(s): E78.5 - Hyperlipidemia, unspecified Plan: Continue statins. LDL goal is less than 70. (4) Lumbar radiculopathy: Code(s): M54.16 - Radiculopathy, lumbar region Plan: Continue gabapentin. Follow-up with pain management. Orders: Orders Lipid Panel 8 Months E78.5 - Hyperlipidemia, unspecified AMB Hemoglobin A1c Today E11.9 - Type 2 diabetes mellitus without complications Influenza [id number] Immunization Today Z23 - Encounter for immunization Comprehensive [place]. Panel Fast 8 Months N18.30 - Chronic kidney disease, stage 3 unspecified Coding Level of Care Code Est Pt Level 4 (45915) Diagnoses Type 2 diabetes mellitus with hyperglycemia, without long-term current use of insulin E11.65 Diabetes mellitus type: type 2 Diabetes mellitus superintendent container terminal insulin use: without superintendent container terminal use Diabetes mellitus complication status: with hyperglycemia Essential hypertension I10 Dyslipidemia E78.5 Lumbar radiculopathy M54.16 Time Spent (min) 23
== END 2023-02-02 14:27 | disposition home or self-care (01) ==
PROVIDERS: PCP Internal Medicine; Visit Provider Internal Medicine
DX: E11.65 Type 2 diabetes mellitus with hyperglycemia (principal); I10 Essential (primary) hypertension; E78.5 Hyperlipidemia, unspecified; M54.16 Radiculopathy, lumbar region
CPT/HCPCS: 83036; 99214

== ENCOUNTER 2023-02-25 09:37 | Inpatient (IN) | payer OTHER, SELFPAY ==
--- NOTE | ~2023-02-25 | XR_ITS ---
EXAMINATION: XR CHEST CLINICAL INFORMATION: Shortness of breath and pain COMPARISON: None available. TECHNIQUE: 2 views of the chest were obtained. FINDINGS: No significant abnormality is noted involving the heart, lungs, mediastinum, bony thorax or soft tissues. XR/XR chest 2V IMPRESSION: Unremarkable examination.
[2023-02-25 10:35] VITALS: BP 114/72; PULSE 105; RESP 19; TEMP 36.6; O2SAT 99; BMI 24.1
[2023-02-25 11:32] LABS: MANUAL DIFF FLAG NO
[2023-02-25 11:35] LABS: Basophils Percent Auto 0.3 % (0-2); Eosinophils Percent Auto 0.4 % (0-4); Hematocrit 53.5 % (42.0-52.0); Hemoglobin 18.4 g/dl (14.0-18.0); Imm Gran Abs Auto 0.04 X10*3/uL (0.00-0.03); Imm Gran Pct Auto 0.4 % (0.0-0.4); Lymphocytes Absolute Auto 1.8 X10*3/uL (1.2-4.9); Lymphocytes Percent Auto 16.3 % (20-40); Mean Corpuscular HGB Conc 34.4 g/dl (31.0-36.0); Mean Corpuscular Hemoglobin 30.6 pg (27.0-33.0); Mean Corpuscular Volume 88.9 fL (80.0-98.0); Mean Platelet Volume 11.2 fL (9.4-12.4); Monocytes Percent Auto 8.7 % (2-11); Neutrophils Absolute Auto 8.3 x10*3/uL (2.0-8.3); Neutrophils Percent Auto 73.9 % (45-73); Platelet Count 216 X10*3/uL (160-400); Red Blood Count 6.02 X10*6/uL (4.60-5.80); Red Cell Distribution Width 13.5 % (11.0-16.0); White Blood Count 11.2 X10*3/uL (4.8-10.8)
[2023-02-25 11:39] LABS: INTERNATIONAL NORM RATIO 0.9 (0.9-1.1); Prothrombin Time 11.4 SEC (11.1-13.3)
[2023-02-25 11:54] LABS: Alanine Aminotransferase 34 U/L (0-40); Albumin Level 4.9 g/dL (3.5-5.0); Alkaline Phosphatase 57 U/L (39-117); Anion Gap 18 (12-20); Aspartate Amino Transferase 28 U/L (5-37); Bilirubin Direct 0.2 mg/dL (0.0-0.5); Bilirubin Total 0.4 mg/dL (0.0-1.0); Blood Urea Nitrogen 40 mg/dL (9-16); C Reactive Protein 0.58 mg/dL (< or = 0.50); Calcium 9.5 mg/dL (8.4-10.2); Carbon Dioxide 19 mmol/L (22-29); Chloride 108 mmol/L (96-108); Glucose Random 139 mg/dL (60-115); Potassium 4.3 mmol/L (3.3-5.1); Sodium 141 mmol/L (135-145); Total Protein 8.5 g/dL (6.5-8.0)
[2023-02-25 11:59] LABS: Creatinine Clr Calc Pharmacy 15.2; Estimated Glomerular Filt Rate 11
[2023-02-25 12:13] LABS: Influenza A PCR POSITIVE (Negative); Influenza B PCR NEGATIVE (Negative); Resp Syncy Virus RNA Qual PCR NEGATIVE (Negative); SARS COV2 PCR INHOUSE NEGATIVE (Negative)
--- NOTE | 2023-02-25 13:32 | ED_ITS ---
HPI - General Adult General Chief complaint: General Medical Stated complaint: Diff Breathing Time Seen by Provider: 02/25/23 13:21 Source: patient and family Mode of arrival: ambulatory Limitations: no limitations History of Present Illness HPI narrative: Patient comes to the emergency room complaining of diarrhea for 3 weeks. Patient denies vomiting but frequently feels nauseous. Patient complaining of diffuse body aches, generalized malaise, body aches, shortness of breath for 2 days and cough. Patient's has similar symptoms. Patient denies chest pain, no abdominal pain, no hematuria or dysuria. No fever to his knowledge. Patient states that he has not tried any [id number] medications to help stop the diarrhea. Related Data Home Medications Medication Instructions Recorded Confirmed gabapentin 800 mg tablet 800 mg PO TID 02/02/23 02/02/23 Previous Rx's Medication Instructions Recorded blood-glucose meter (FreeStyle #1 ea 03/20/20 [place] kit) naloxone 4 mg/actuation nasal 4 mg intranasal Q2M PRN opioid 05/08/20 spray (Narcan) overdose 1 day #2 ea amlodipine 5 mg tablet 5 mg PO DAILY #90 tabs 04/23/22 lancets 28 gauge (FreeStyle #100 ea 05/23/22 Lancets) tadalafil 20 mg tablet 20 mg PO ONCE PRN sexual activity 09/11/22 30 days #30 tabs blood sugar diagnostic (FreeStyle #50 strips 09/25/22 Lite Strips) blood sugar diagnostic (OneTouch #100 ea 09/28/22 Ultra Test strips) blood-glucose meter (OneTouch #1 ea 09/28/22 Ultra2 Meter) lancets 30 gauge (OneTouch #100 ea 09/28/22 UltraSoft 2 Lancet) lisinopril 5 mg tablet 10 mg (2 x 5 mg) PO DAILY 30 days 10/15/22 #60 tabs tadalafil 5 mg tablet 5 mg PO DAILY sexual activity 90 11/18/22 days #90 tabs hydroxyzine HCl 25 mg tablet 25 mg PO Q8H PRN for itch #90 tabs 12/14/22 rosuvastatin 40 mg tablet 40 mg PO DAILY #30 tabs 12/14/22 nystatin 100,000 unit/mL oral 1 ml buccal DAILY 7 days #7 mL 02/12/23 suspension Allergies Allergy/AdvReac Type Severity Reaction Status Date / Time No Known Allergies Allergy Verified 02/25/23 10:35 Review of Systems 2 Review of Systems: Constitutional : No Weight loss, No Fever, No Chills, No Night Sweats, complaining of fatigue and generalized malaise ENT/Mouth : No Hearing loss, No Ear Pain, No Nasal Congestion, No Sinus Pain, No Hoarseness, No sore throat, No Rhinorrhea, No Swallowing Difficulty Eyes: No Eye Pain, No Swelling, No Redness, No Foreign Body, No Discharge, No Vision Changes Cardiovascular : No Chest Pain, No SOB, No Dyspnea on Exertion, No Orthopnea, No Edema, No Palpitations Respiratory : No Cough, No Sputum, No Wheezing, No Smoke Exposure, No Dyspnea Gastrointestinal : Complaining of nausea, no vomiting, complaining of diffuse area for 3 weeks, No Constipation, No abdominal Pain, No Hematochezia, No Melena Genitourinary : no irregular bleeding, No Dysuria, No Urinary Frequency, No Hematuria, No Urinary Incontinence, No Urgency, No Flank Pain, No Urinary Flow Changes, No Hesitancy Musculoskeletal : No joint pain, No Myalgias, No Joint Swelling Skin : No Skin Lesions, No rash Neuro : No Weakness, No Numbness, No Paresthesias, No Loss of Consciousness, No Dizziness, No Headache Psych : No Anxiety/Panic, No Depression, No SI/HI/AH/VH, No Social Issues, Heme/Lymph: No Bruising, No Bleeding,No Lymphadenopathy Endocrine : No Polyuria, No Polydipsia, No Temperature Intolerance PMFSH Past Medical History Medical History CKD (chronic kidney disease) stage 3, GFR 30-59 ml/min Lumbar spondylosis Microalbuminuria Erectile dysfunction Erectile dysfunction CKD (chronic kidney disease) Dyslipidemia Essential hypertension Diabetes mellitus Smoker Right shoulder pain Lumbar radiculopathy Cervical radiculopathy History of heroin abuse Thoracic back pain Cervical pain Pain in right hand Pain in right knee Pain in right shoulder Surgical History Hx of neck surgery History of shoulder surgery History of hydrocelectomy Hx of cholecystectomy H/O shoulder surgery History of knee surgery H/O hand surgery Family History Family History Father Esophageal cancer Mother Diabetes Hypertension Dementia Social History Social History Household Members Other:: lives w ex-, daughter & son lives upstairs Housing: House Alcohol intake: never Patient Tobacco Use Status: Current everyday Tobacco user Tobacco use type: Cigarette Cigarette Packs Per Day: 0.5 Cigarettes Per Day: 10 e-Cigarette/Vaping Use: Never Used Second Hand Smoke Exposure: No Advance Directives: No Advance Directives Information Provided: No service: No Current occupational status: disabled 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 Oriented X3. No acute distress. Seems weak Eyes: Pupils equal, round and reactive to light. ENT: Pharynx normal. Significantly Dry oral mucosa Neck: Normal inspection. Neck supple. No lymph nodes noted. No crepitus CVS: Normal heart rate and rhythm. Pulses normal. Normal S1 and S2 Respiratory: No respiratory distress. Breath sounds normal. No Wheezing. No rales Abdomen: Soft and nontender. No rigidity. No distention. Skin: Skin warm and dry. Mottled skin in torso and back Extremities: No lower extremity edema. No Lacerations. No Rash Neuro: Oriented X 3. No motor deficit. No sensory deficit. Moving all extremities. No slurred speech. CN 2 through 12 grossly intact Psych: calm, cooperative, normal affect Course Course Course Narrative: -patient receiving IV fluids, loperamide Medications Administered Discontinued Medications Generic Name Dose Route Start Last Admin Trade Name Freq PRN Reason Stop Dose Admin Lactated Ringer's 2,000 mls @ 999 mls/hr 02/25/23 13:31 02/25/23 16:36 Lr IVCONT 02/25/23 15:31 Infused .Q2H1M ONE Infusion Loperamide HCl 4 mg 02/25/23 13:30 02/25/23 14:14 Loperamide Hcl 2 Mg Capsule PO 02/25/23 13:31 4 mg ONCE ONE Administration Ondansetron HCl 4 mg 02/25/23 13:33 02/25/23 14:39 Ondansetron Hcl 4 Mg/2 Ml Vial IVPUSH 02/25/23 13:34 4 mg ONCE ONE Administration Tramadol HCl 50 mg 02/25/23 13:34 02/25/23 14:12 Tramadol Hcl 50 Mg Tablet PO 02/25/23 13:35 50 mg ONCE ONE Administration -patient is significantly dehydrated. Patient being given lactated Ringer's 2 L -my interpretation of labs: White blood cell count slightly elevated 11.2. Patient's creatinine is significantly elevated at 5.38, baseline 1.3. Patient tested positive for influenza A -my interpretation of chest x-ray: Hyperinflated lungs, no infiltrates Medical Decision Making Medical Decision Making [facility] Narrative: -my interpretation of labs: Hematology slightly elevated, likely reactive leukocytosis to influenza. Patient tested positive for influenza. Patient's hemoglobin hematocrit elevated, patient seems to be significantly dehydrated on physical exam as well. Creatinine baseline 1.3, today 5.38. Likely secondary to dehydration. -patient was given 2 L of lactated Ringer's, patient's creatinine did improve but patient still needs more fluids. -I discussed the patient with Dr. Workman, patient being admitted Differential Diagnosis Differential Diagnoses: The differential diagnosis associated with the presentation includes (Influenza, COVID, viral syndrome, dehydration, CHRIS) Admission/Observation Consideration of admission/observation: Escalation of care including admission/observation considered Consult Healthcare Provider Management of the patient was discussed with: Hospitalist Lab Data [facility] Lab Attestation statement: I reviewed the patient's lab results. 02/25/23 11:26 02/25/23 17:33 Labs: Lab Results 02/25/23 02/25/23 02/25/23 Range/Units 11:26 14:41 16:07 WBC 11.2 H (4.8-10.8) X10*3/uL RBC 6.02 H (4.60-5.80) X10*6/uL Hgb 18.4 H (14.0-18.0) g/dl Hct 53.5 H (42.0-52.0) % MCV 88.9 (80.0-98.0) fL MCH 30.6 (27.0-33.0) pg MCHC 34.4 (31.0-36.0) g/dl RDW 13.5 (11.0-16.0) % Plt Count 216 (160-400) X10*3/uL MPV 11.2 (9.4-12.4) fL Immature Gran % (Auto) 0.4 (0.0-0.4) % Neut % (Auto) 73.9 H (45-73) % Lymph % (Auto) 16.3 L (20-40) % [place] % (Auto) 8.7 (2-11) % Eos % (Auto) 0.4 (0-4) % Baso % (Auto) 0.3 (0-2) % Lymph # (Auto) 1.8 (1.2-4.9) X10*3/uL [place] # (Auto) 1.0 (0.1-1.2) X10*3/uL Eos # (Auto) 0.0 (0.0-0.4) X10*3/uL Baso # (Auto) 0.0 (0.0-0.2) X10*3/uL Abs Immat Gran (auto) 0.04 H (0.00-0.03) X10*3/uL Absolute Neuts (auto) 8.3 (2.0-8.3) x10*3/uL Absolute Nucleated RBC 0.000 (0.0-0.012) X10*3/uL Nucleated RBC % (auto) 0.0 (0.0-0.2) /100WBC PT 11.4 (11.1-13.3) SEC INR 0.9 (0.9-1.1) Sodium 141 (135-145) mmol/L Potassium 4.3 (3.3-5.1) mmol/L Chloride 108 (96-108) mmol/L Carbon Dioxide 19 L (22-29) mmol/L Anion Gap 18 (12-20) BUN 40 H (9-16) mg/dL Creatinine 5.38 H* (0.5-1.4) mg/dL Estim Creat Clear Calc 15.2 Estimated GFR 11 Random Glucose 139 H (60-115) mg/dL Calcium 9.5 (8.4-10.2) mg/dL Total Bilirubin 0.4 (0.0-1.0) mg/dL Direct Bilirubin 0.2 (0.0-0.5) mg/dL AST 28 (5-37) U/L ALT 34 (0-40) U/L Alkaline Phosphatase 57 (39-117) U/L C-Reactive Protein 0.58 H (< or = 0.50) mg/dL B-Natriuretic Peptide < 10 (<100) pg/mL Total Protein 8.5 H (6.5-8.0) g/dL Albumin 4.9 (3.5-5.0) g/dL C. difficile Tox B Gene NEGATIVE (Negative) Influenza Type A (PCR) POSITIVE A (Negative) Influenza Type B (PCR) NEGATIVE (Negative) RSV RNA Qual (PCR) NEGATIVE (Negative) SARS-CoV-2 RNA (RT-PCR) NEGATIVE (Negative) 02/25/23 Range/Units 17:33 WBC (4.8-10.8) X10*3/uL RBC (4.60-5.80) X10*6/uL Hgb (14.0-18.0) g/dl Hct (42.0-52.0) % MCV (80.0-98.0) fL MCH (27.0-33.0) pg MCHC (31.0-36.0) g/dl RDW (11.0-16.0) % Plt Count (160-400) X10*3/uL MPV (9.4-12.4) fL Immature Gran % (Auto) (0.0-0.4) % Neut % (Auto) (45-73) % Lymph % (Auto) (20-40) % [place] % (Auto) (2-11) % Eos % (Auto) (0-4) % Baso % (Auto) (0-2) % Lymph # (Auto) (1.2-4.9) X10*3/uL [place] # (Auto) (0.1-1.2) X10*3/uL Eos # (Auto) (0.0-0.4) X10*3/uL Baso # (Auto) (0.0-0.2) X10*3/uL Abs Immat Gran (auto) (0.00-0.03) X10*3/uL Absolute Neuts (auto) (2.0-8.3) x10*3/uL Absolute Nucleated RBC (0.0-0.012) X10*3/uL Nucleated RBC % (auto) (0.0-0.2) /100WBC PT (11.1-13.3) SEC INR (0.9-1.1) Sodium 141 (135-145) mmol/L Potassium 4.7 (3.3-5.1) mmol/L Chloride 109 H (96-108) mmol/L Carbon Dioxide 18 L (22-29) mmol/L Anion Gap 19 (12-20) BUN 45 H (9-16) mg/dL Creatinine 4.56 H* (0.5-1.4) mg/dL Estim Creat Clear Calc 17.9 Estimated GFR 13 Random Glucose 96 (60-115) mg/dL Calcium 8.6 D (8.4-10.2) mg/dL Total Bilirubin (0.0-1.0) mg/dL Direct Bilirubin (0.0-0.5) mg/dL AST (5-37) U/L ALT (0-40) U/L Alkaline Phosphatase (39-117) U/L C-Reactive Protein (< or = 0.50) mg/dL B-Natriuretic Peptide (<100) pg/mL Total Protein (6.5-8.0) g/dL Albumin (3.5-5.0) g/dL C. difficile Tox B Gene (Negative) Influenza Type A (PCR) (Negative) Influenza Type B (PCR) (Negative) RSV RNA Qual (PCR) (Negative) SARS-CoV-2 RNA (RT-PCR) (Negative) Independent Interpretation I performed an independent interpretation of an: Plain X-Ray (My interpretation of chest x-ray: No infiltrates) Radiology Impression Discussion of test interpretation with radiology: I have reviewed the radiologist's reading. Radiologist Impression: FINDINGS: No significant abnormality is noted involving the heart, lungs, mediastinum, bony thorax or soft tissues. XR/XR chest 2V IMPRESSION: Unremarkable examination. Independent Historian Clinical information obtained from an independent historian. History obtained from or confirmed by: Spouse Critical Care Time Critical Care Time Critical Care Time: Yes Total Critical Care Time: 75 Attestation: I have personally provided critical care time. Time includes review of lab data, radiology results, discussion with consultants, and monitoring for potential decompensation. Intervention performed as documented. Discharge Plan Discharge Clinical Impression: Influenza A, CHRIS (acute kidney injury) Patient Disposition: Admitted As Inpatient Prescriptions: No Action amlodipine 5 mg tablet 5 mg PO DAILY Qty: 90 3RF (DME) lancets [FreeStyle Lancets] 28 gauge misc See Rx Instructions .ROUTE .MEDSUPPLY Qty: 100 11RF Rx Instructions: Use 1 lancet once a day tadalafil 20 mg tablet 20 mg PO ONCE PRN (Reason: sexual activity) 30 Days Qty: 30 5RF Rx Instructions: On demand medication take 60 minutes before intended activity (DME) blood-glucose meter [OneTouch Ultra2 Meter] Misc See Rx Instructions .Route Qty: 1 0RF Rx Instructions: As directed (DME) OneTouch Ultra Test Strip See Rx Instructions .Route Qty: 100 3RF Rx Instructions: Use 1 test strip once a day (DME) lancets [OneTouch UltraSoft 2 Lancet] 30 gauge misc See Rx Instructions .Route Qty: 100 3RF Rx Instructions: Use 1 lancet once a day lisinopril 5 mg tablet 10 mg PO DAILY 30 Days Qty: 60 6RF tadalafil 5 mg tablet 5 mg PO DAILY 90 Days Qty: 90 1RF Rx Instructions: [facility] [employer] [facility] [id number] rosuvastatin 40 mg tablet 40 mg PO DAILY Qty: 30 6RF hydroxyzine HCl 25 mg tablet 25 mg PO Q8H PRN (Reason: for itch) Qty: 90 1RF nystatin 100,000 unit/mL suspension 1 ml buccal DAILY 7 Days Qty: 7 0RF Rx Instructions: administer 1/2 of dose in each side of the mouth (DME) blood-glucose meter [FreeStyle [place]] Kit See Rx Instructions .ROUTE .MEDSUPPLY Qty: 1 0RF Rx Instructions: As directed (DME) FreeStyle Lite Strips Strip See Rx Instructions .ROUTE .COMPLEX Qty: 50 11RF Dose Instruction: USE 1 TEST STRIP ONCE DAILY Rx Instructions: USE 1 TEST STRIP ONCE DAILY gabapentin 800 mg tablet 800 mg PO TID Narcan 4 mg/actuation spray,non-aerosol 4 mg intranasal Q2M PRN (Reason: opioid overdose) 1 Days Qty: 2 1RF Rx Instructions: spray 1 dose into ONE nostril; alternate nostrils w each dose until help arrives
[2023-02-25] MEDS: traMADoL HCL 50 MG TABLET PO (14:12)
[2023-02-25] MEDS: Loperamide HCl 2 MG CAPSULE 4 MG PO (14:14)
[2023-02-25 14:36] VITALS: BP 101/72; PULSE 88; RESP 18; O2SAT 95
[2023-02-25] MEDS: Lactated Ringers 2,000 ML 999 ML IVCONT (14:39)
[2023-02-25] MEDS: ondansetron HCL 4 MG/2 ML VIAL IVPUSH (14:39)
[2023-02-25 16:33] LABS: CDiff Gene PCR NEGATIVE (Negative)
[2023-02-25 16:34] LABS: B Type Natriuretic Peptide < 10 pg/mL (<100)
[2023-02-25 17:07] VITALS: BP 110/73; PULSE 75; O2SAT 97
[2023-02-25 17:55] LABS: Anion Gap 19 (12-20); Blood Urea Nitrogen 45 mg/dL (9-16); Calcium 8.6 mg/dL (8.4-10.2); Carbon Dioxide 18 mmol/L (22-29); Chloride 109 mmol/L (96-108); Glucose Random 96 mg/dL (60-115); Potassium 4.7 mmol/L (3.3-5.1); Sodium 141 mmol/L (135-145)
[2023-02-25 17:57] LABS: Creatinine Clr Calc Pharmacy 17.9; Estimated Glomerular Filt Rate 13
[2023-02-25 19:06] VITALS: BP 107/72; PULSE 75; RESP 18; TEMP 36.7; O2SAT 97
--- NOTE | 2023-02-25 19:07 | P.HPHOSP_ITS ---
History of Present Illness Date of Service: 02/25/23 Chief Complaint: Diarrhea This is a a 62-year-old male with pertinent history of essential hypertension, mixed hyperlipidemia, lumbar radiculopathy who presents to the emergency department for for evaluation of diarrhea. Patient states he did not want to come to the hospital and his forced him to come. He has been having diarrhea for the last 2 weeks, about 10 episodes per day, nonbloody. No associated abdominal pain or vomiting. No fever or chills. Patient states he also has been having occasional intermittent nonproductive cough. His also been sick for the last 10 days with cough. Also has been having malaise, diffuse body aches. Had a rash which resolved. No fever but admits chills. No chest discomfort, palpitations, shortness of breath, changes in urinary habits In the emergency department, patient was found to have acute kidney injury and tested positive for influenza Review of Systems 2 Constitutional: Constitutional: Reports fatigue, Reports lethargy, Reports malaise, Reports poor appetite and Reports weakness Cardiovascular: Cardiovascular: Reports no additional cardiovascular complaints Respiratory: Respiratory: Reports no additional respiratory complaints Gastrointestinal: Gastrointestinal: Reports tenesmus and Reports loose stools Genitourinary: Genitourinary: Reports no additional male genitourinary complaints Neurologic: Reports weakness Endocrine: Endocrine: Reports fatigue PMFSH Medical History CKD (chronic kidney disease) stage 3, GFR 30-59 ml/min Lumbar spondylosis Microalbuminuria Erectile dysfunction Erectile dysfunction CKD (chronic kidney disease) Dyslipidemia Essential hypertension Diabetes mellitus Smoker Right shoulder pain Lumbar radiculopathy Cervical radiculopathy History of heroin abuse Thoracic back pain Cervical pain Pain in right hand Pain in right knee Pain in right shoulder Family History Father Esophageal cancer Mother Diabetes Hypertension Dementia Surgical History Hx of neck surgery History of shoulder surgery History of hydrocelectomy Hx of cholecystectomy H/O shoulder surgery History of knee surgery H/O hand surgery Social History Household Members Other:: lives w ex-, daughter & son lives upstairs Housing: House Alcohol intake: former Patient Tobacco Use Status: Current everyday Tobacco user Tobacco use type: Cigarette Cigarette Packs Per Day: 0.5 Cigarettes Per Day: 10 Smoked in Last 30 Days: Yes e-Cigarette/Vaping Use: Never Used Second Hand Smoke Exposure: No Use of substances other than those prescribed or required for medical reasons: No Any prior treatment program specific to substance use: No Advance Directives: No Advance Directives Information Provided: No service: No Current occupational status: disabled 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 Cognitive needs: No Hearing needs: No Vision needs: Yes Meds Allergies Allergy/AdvReac Type Severity Reaction Status Date / Time No Known Allergies Allergy Verified 02/25/23 10:35 Home Medications Medication Instructions Recorded Confirmed Last Taken Type amlodipine 5 mg tablet 5 mg PO BEDTIME 02/25/23 02/25/23 02/24/23 History gabapentin 800 mg tablet 1,600 mg PO BEDTIME 02/25/23 02/25/23 02/24/23 History hydroxyzine HCl 25 mg tablet 25 mg PO BEDTIME 02/25/23 02/25/23 02/24/23 History hydroxyzine HCl 25 mg tablet 25 mg PO BID PRN itch or anxiety 02/25/23 02/25/23 Unknown History lisinopril 5 mg tablet 10 mg PO BEDTIME 02/25/23 02/25/23 02/24/23 History rosuvastatin 40 mg tablet 40 mg PO BEDTIME 02/25/23 02/25/23 02/24/23 History tadalafil 5 mg tablet 5 mg PO Q3D PRN Erectile 02/25/23 02/25/23 Unknown History Dysfunction Physical Exam 2 Vital Signs and Narrative: Vital Signs: Last Vital Signs Temp 98 F 02/25/23 10:35 Pulse 75 02/25/23 17:07 Resp 18 02/25/23 14:36 BP 110/73 02/25/23 17:07 Pulse Ox 97 02/25/23 17:07 O2 Del Method Room Air 02/25/23 17:07 BMI result Body Mass Index 24.1 Middle-aged male lying in bed in no distress Neck supple, no JVD, dry mucous membranes Regular rate and rhythm, S1-S2 heard Regular breath sounds bilaterally, no wheezing or crackles appreciated Abdomen soft nontender, no guarding, no rigidity Patient is awake, alert and oriented to self, place, time and person ; no focal motor deficit Psych: Normal mood No pedal edema Results Labs 02/25/23 11:26 02/25/23 17:33 Labs: Laboratory Results - last 24 hr 02/25/23 02/25/23 02/25/23 11:26 14:41 16:07 MCV 88.9 MCH 30.6 MCHC 34.4 RDW 13.5 Plt Count 216 MPV 11.2 Immature Gran % (Auto) 0.4 Neut % (Auto) 73.9 H Lymph % (Auto) 16.3 L [place] % (Auto) 8.7 Eos % (Auto) 0.4 Baso % (Auto) 0.3 Lymph # (Auto) 1.8 [place] # (Auto) 1.0 Eos # (Auto) 0.0 Baso # (Auto) 0.0 Abs Immat Gran (auto) 0.04 H Absolute Neuts (auto) 8.3 Absolute Nucleated RBC 0.000 Nucleated RBC % (auto) 0.0 PT 11.4 INR 0.9 Anion Gap 18 Estim Creat Clear Calc 15.2 Estimated GFR 11 Random Glucose 139 H Calcium 9.5 Total Bilirubin 0.4 Direct Bilirubin 0.2 AST 28 ALT 34 Alkaline Phosphatase 57 C-Reactive Protein 0.58 H B-Natriuretic Peptide < 10 Total Protein 8.5 H Albumin 4.9 C. difficile Tox B Gene NEGATIVE Influenza Type A (PCR) POSITIVE A Influenza Type B (PCR) NEGATIVE RSV RNA Qual (PCR) NEGATIVE SARS-CoV-2 RNA (RT-PCR) NEGATIVE 02/25/23 17:33 MCV MCH MCHC RDW Plt Count MPV Immature Gran % (Auto) Neut % (Auto) Lymph % (Auto) [place] % (Auto) Eos % (Auto) Baso % (Auto) Lymph # (Auto) [place] # (Auto) Eos # (Auto) Baso # (Auto) Abs Immat Gran (auto) Absolute Neuts (auto) Absolute Nucleated RBC Nucleated RBC % (auto) PT INR Anion Gap 19 Estim Creat Clear Calc 17.9 Estimated GFR 13 Random Glucose 96 Calcium 8.6 D Total Bilirubin Direct Bilirubin AST ALT Alkaline Phosphatase C-Reactive Protein B-Natriuretic Peptide Total Protein Albumin C. difficile Tox B Gene Influenza Type A (PCR) Influenza Type B (PCR) RSV RNA Qual (PCR) SARS-CoV-2 RNA (RT-PCR) Imaging Radiologist's Impressions: Impressions Chest X-Ray 02/25/23 11:12 IMPRESSION: Unremarkable examination. Assessment and Plan (1) CHRIS (acute kidney injury): Status: Acute (2) Influenza A: Status: Acute Plan This is a a 62-year-old male with pertinent history of essential hypertension, mixed hyperlipidemia, lumbar radiculopathy who presents to the emergency department for for evaluation of diarrhea. #. Diarrhea, likely viral in the setting of influenza: Supportive care. Ordered GI panel. C diff negative. #. Acute kidney injury, stage III likely prerenal in the setting of above: Continue IV crystalloid resuscitation. Monitor urine output and creatinine, avoid nephrotoxins. Urine studies pending #. Influenza a: Initiating oseltamivir, renally dosed #. Essential hypertension: Continue amlodipine, hold lisinopril #. Mixed hyperlipidemia: On statin #. Lumbar radiculopathy: Adjust gabapentin to kidney function #. Polycythemia in the setting of intravascular volume depletion DVT prophylaxis: Lovenox Full code Admit as inpatient and will require two night minimum hospital stay for close monitoring of kidney function, IV crystalloid resuscitation (as above), which is not possible in a lesser acute setting. Quality Stroke Does the patient have a stroke diagnosis?: No VTE Prior VTE?: No VTE Risk Level:: Medical - moderate - high VTE Device Contraindication: Treatment Not Indicated VTE Drug Contraindication: N/A - Med Ordered
--- NOTE | 2023-02-25 19:20 | MHC.EDTECH ---
This tech assumed care of patient at 1900, hourly rounds completed and belonging list completed and copy placed in chart. Patient is resting comfortably at this time family at bedside and call lucas within reach
[2023-02-25] MEDS: Lactated Ringers 1,000 ML 125 ML IVCONT (20:14)
[2023-02-25] MEDS: Atorvastatin Calcium 80 MG TABLET PO (20:18)
[2023-02-25] MEDS: amLODIPine Besylate 5 MG TABLET PO (20:18)
[2023-02-25] MEDS: Gabapentin 600 MG TABLET PO (20:18)
[2023-02-25] MEDS: hydrOXYzine HCL 25 MG TABLET PO (20:18)
[2023-02-25] MEDS: Enoxaparin Sodium 30 MG/0.3 ML SYRINGE SUBCUT (20:19)
--- NOTE | 2023-02-25 20:28 | MHC.EDTECH ---
This tech attempted to get a urine and stool sample,patient is unable to at this time.
--- NOTE | 2023-02-25 21:13 | MHC.EDTECH ---
Patient urinated 300MLS and Urine sample obtained and sent to lab
[2023-02-25 21:23] LABS: Appearance Urine Clear; Color Urine Yellow; Glucose Urine UA Negative (Negative); Leukocyte Esterase Urine Negative (Negative); Nitrite Urine Negative (Negative); PH 5.5 (5.0-9.0); Specific Gravity - Urine 1.015 (1.005-1.025); UMIC TRIGGER UACC YES; Urine Blood Trace (Negative); Urine Ketones Negative (Negative); Urine Protein 100 (2+) mg/dL (Neg-Trace)
[2023-02-25 21:32] LABS: Bacteria Urine None Seen (None Seen); RBC Urine 0-2 /HPF (0-2); UACC Culture Trigger YES
[2023-02-25 21:38] LABS: Creatinine Urine 234.95 mg/dL
[2023-02-25 22:04] VITALS: BP 107/74; PULSE 74; RESP 18; TEMP 36.9; O2SAT 98
--- NOTE | 2023-02-25 22:05 | MHC.EDTECH ---
Hourly rounds and vitals completed, patient is resting at this time and call lucas within reach
--- NOTE | 2023-02-25 22:29 | PC.NURSE ---
Tamiflu not available in pyxis, called phrmacy and they will bring down.
[2023-02-26] MEDS: 0.9 % Sodium Chloride Flush 3 ML SYRINGE IVFLUSH (01:02)
[2023-02-26] MEDS: Oseltamivir Phosphate 30 MG CAPSULE PO ×2 (01:02→20:14)
--- NOTE | 2023-02-26 03:35 | MHC.EDTECH ---
Hourly rounds completed,patient is sleeping at this time and call lucas within reach
[2023-02-26 03:43] VITALS: BP 96/61; PULSE 77; RESP 18; TEMP 36.9; O2SAT 96
--- NOTE | 2023-02-26 03:44 | MHC.EDTECH ---
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 Patient is sitting up eating at this time,call lucas within reach
[2023-02-26 05:54] LABS: MANUAL DIFF FLAG NO
[2023-02-26 05:55] LABS: Basophils Percent Auto 0.3 % (0-2); Eosinophils Absolute Auto 0.1 X10*3/uL (0.0-0.4); Eosinophils Percent Auto 0.8 % (0-4); Hematocrit 43.3 % (42.0-52.0); Hemoglobin 15.3 g/dl (14.0-18.0); Imm Gran Abs Auto 0.01 X10*3/uL (0.00-0.03); Imm Gran Pct Auto 0.2 % (0.0-0.4); Lymphocytes Percent Auto 30.6 % (20-40); Mean Corpuscular HGB Conc 35.3 g/dl (31.0-36.0); Mean Corpuscular Hemoglobin 30.7 pg (27.0-33.0); Mean Corpuscular Volume 86.9 fL (80.0-98.0); Mean Platelet Volume 11.6 fL (9.4-12.4); Monocytes Absolute Auto 0.6 X10*3/uL (0.1-1.2); Monocytes Percent Auto 8.8 % (2-11); Neutrophils Absolute Auto 3.9 x10*3/uL (2.0-8.3); Neutrophils Percent Auto 59.3 % (45-73); Platelet Count 149 X10*3/uL (160-400); Red Blood Count 4.98 X10*6/uL (4.60-5.80); Red Cell Distribution Width 13.2 % (11.0-16.0); White Blood Count 6.6 X10*3/uL (4.8-10.8)
--- NOTE | 2023-02-26 06:04 | MHC.EDTECH ---
Hourly rounds completed,emptied urinal 300MLS ,patient is sleeping and call lucas within reach
[2023-02-26 06:13] LABS: Anion Gap 16 (12-20); Blood Urea Nitrogen 48 mg/dL (9-16); Calcium 8.3 mg/dL (8.4-10.2); Carbon Dioxide 15 mmol/L (22-29); Chloride 109 mmol/L (96-108); Creatinine Clr Calc Pharmacy 17.1; Estimated Glomerular Filt Rate 12; Glucose Random 124 mg/dL (60-115); Potassium 3.9 mmol/L (3.3-5.1); Sodium 136 mmol/L (135-145)
[2023-02-26] MEDS: Lactated Ringers 1,000 ML 125 ML IVCONT ×2 (06:40→20:20)
--- NOTE | 2023-02-26 07:07 | PC.NURSE ---
Alert and oriented, reports 4/10 chronic back pain. Ate well for breakfast, patient with occasional congested cough
--- NOTE | 2023-02-26 07:18 | PHA.MEDREC ---
Pharmacy Consult ? Medication Reconciliation Pharmacy has completed the medication reconciliation.
[2023-02-26 09:12] VITALS: BP 106/67; PULSE 67; RESP 14; O2SAT 99
--- NOTE | 2023-02-26 10:16 | P.PNIM_ITS ---
Subjective Subjective Date of Service: 02/26/23 Interval History: diarrhea improving minimal cough not hypoxic fever resolved Physical Exam 2 Vital Signs: Vital Signs: Last Vital Signs Temp 98.4 F 02/26/23 03:43 Pulse 67 02/26/23 09:12 Resp 14 02/26/23 09:12 BP 106/67 02/26/23 09:12 Pulse Ox 99 02/26/23 09:12 O2 Del Method Room Air 02/26/23 09:12 BMI result Body Mass Index 24.1 Gen: in no acute distress HEENT: sclera anicteric, moist mucus membranes Neck: supple Lungs: clear to auscultation bilaterally Heart: regular rate and rhythm, no murmurs Abd: soft, non-tender, non-distended Ext: no edema Skin: warm/well-perfused Neuro: alert and oriented x3, no focal findings Psych: appropriate affect Objective Data Active Medications Acetaminophen (Acetaminophen 325 Mg Tablet) 650 mg PO Q6H PRN PRN Reason: Pain, Mild (Pain Scale 1-3) Amlodipine Besylate (Amlodipine Besylate 5 Mg Tablet) 5 mg PO BEDTIME EMANUEL; Protocol Last Admin: 02/25/23 20:18 Dose: 5 mg Documented By: BASILIO Atorvastatin Calcium (Atorvastatin Calcium 80 Mg Tablet) 80 mg PO BEDTIME EMANUEL Last Admin: 02/25/23 20:18 Dose: 80 mg Documented By: BASILIO Enoxaparin Sodium (Enoxaparin Sodium 30 Mg/0.3 Ml Syringe) 30 mg SUBCUT Q24H EMANUEL Last Admin: 02/25/23 20:19 Dose: 30 mg Documented By: BASILIO Gabapentin (Gabapentin 600 Mg Tablet) 600 mg PO BEDTIME EMANUEL Last Admin: 02/25/23 20:18 Dose: 600 mg Documented By: BASILIO Hydroxyzine HCl (Hydroxyzine Hcl 25 Mg Tablet) 25 mg PO BEDTIME EMANUEL Last Admin: 02/25/23 20:18 Dose: 25 mg Documented By: BASILIO Hydroxyzine HCl (Hydroxyzine Hcl 25 Mg Tablet) 25 mg PO BID PRN PRN Reason: itch or anxiety Lactated Ringer's (Lr) 1,000 mls @ 125 mls/hr IVCONT .Q8H EMANUEL Last Admin: 02/26/23 06:40 Dose: 125 mls/hr Documented By: BASILIO Loperamide HCl (Loperamide Hcl 2 Mg Capsule) 2 mg PO Q4H PRN PRN Reason: Loose Stool Melatonin (Melatonin 3 Mg Tablet) 6 mg PO BEDTIME PRN PRN Reason: Insomnia Ondansetron HCl (Ondansetron Hcl 4 Mg/2 Ml Vial) 4 mg IVPUSH Q8H PRN PRN Reason: Nausea and Vomiting Oseltamivir Phosphate (Oseltamivir Phosphate 30 Mg Capsule) 30 mg PO Q24H [facility] Stop: 03/06/23 21:01 Last Admin: 02/26/23 01:02 Dose: 30 mg Documented By: BASILIO Sodium Chloride (0.9 % Sodium Chloride Flush 3 Ml Syringe) [facility] Last Admin: 02/26/23 07:09 Dose: Not Given Documented By: CAROLNAN Non-Admin Reason: IV Running Labs 02/26/23 05:27 02/26/23 05:27 Labs: Laboratory Results - last 24 hr 02/25/23 02/25/23 02/25/23 11:26 14:41 16:07 MCV 88.9 MCH 30.6 MCHC 34.4 RDW 13.5 Plt Count 216 MPV 11.2 Immature Gran % (Auto) 0.4 Neut % (Auto) 73.9 H Lymph % (Auto) 16.3 L Mora % (Auto) 8.7 Eos % (Auto) 0.4 Baso % (Auto) 0.3 Lymph # (Auto) 1.8 Mora # (Auto) 1.0 Eos # (Auto) 0.0 Baso # (Auto) 0.0 Abs Immat Gran (auto) 0.04 H Absolute Neuts (auto) 8.3 Absolute Nucleated RBC 0.000 Nucleated RBC % (auto) 0.0 PT 11.4 INR 0.9 Anion Gap 18 Estim Creat Clear Calc 15.2 Estimated GFR 11 Random Glucose 139 H Calcium 9.5 Total Bilirubin 0.4 Direct Bilirubin 0.2 AST 28 ALT 34 Alkaline Phosphatase 57 C-Reactive Protein 0.58 H B-Natriuretic Peptide < 10 Total Protein 8.5 H Albumin 4.9 Urine Color Urine Appearance Urine pH Ur Specific [place] Urine Protein Urine Glucose (UA) Urine Ketones Urine Blood Urine Nitrite Ur Leukocyte Esterase Urine RBC Urine WBC Ur Squamous Epith Cells Urine Bacteria Hyaline Casts Ur Random Sodium Urine Creatinine C. difficile Tox B Gene NEGATIVE Influenza Type A (PCR) POSITIVE A Influenza Type B (PCR) NEGATIVE RSV RNA Qual (PCR) NEGATIVE SARS-CoV-2 RNA (RT-PCR) NEGATIVE 02/25/23 02/25/23 02/26/23 17:33 21:14 05:27 MCV 86.9 MCH 30.7 MCHC 35.3 RDW 13.2 Plt Count 149 L D MPV 11.6 Immature Gran % (Auto) 0.2 Neut % (Auto) 59.3 Lymph % (Auto) 30.6 Mora % (Auto) 8.8 Eos % (Auto) 0.8 Baso % (Auto) 0.3 Lymph # (Auto) 2.0 Mora # (Auto) 0.6 Eos # (Auto) 0.1 Baso # (Auto) 0.0 Abs Immat Gran (auto) 0.01 Absolute Neuts (auto) 3.9 Absolute Nucleated RBC 0.000 Nucleated RBC % (auto) 0.0 PT INR Anion Gap 19 16 Estim Creat Clear Calc 17.9 17.1 Estimated GFR 13 12 Random Glucose 96 124 H Calcium 8.6 D 8.3 L Total Bilirubin Direct Bilirubin AST ALT Alkaline Phosphatase C-Reactive Protein B-Natriuretic Peptide Total Protein Albumin Urine Color Yellow Urine Appearance Clear Urine pH 5.5 Ur Specific [place] 1.015 Urine Protein 100 (2+) H Urine Glucose (UA) Negative Urine Ketones Negative Urine Blood Trace H Urine Nitrite Negative Ur Leukocyte Esterase Negative Urine RBC 0-2 Urine WBC 6-10 H Ur Squamous Epith Cells 11-20 Urine Bacteria None Seen Hyaline Casts 11-20 Ur Random Sodium 37.0 Urine Creatinine 234.95 C. difficile Tox B Gene Influenza Type A (PCR) Influenza Type B (PCR) RSV RNA Qual (PCR) SARS-CoV-2 RNA (RT-PCR) Microbiology Microbiology Results: Microbiology 02/25/23 Unknown Urine Culture - Preliminary Urine clean catch - Urine hare top No growth to date. Assessment and Plan (1) Influenza A: Status: Acute (2) CHRIS (acute kidney injury): Status: Acute Plan 62yo M with HTN + HLD presenting with diarrhea and found to have prerenal CHRIS + influenza A prerenal CHRIS - FENa 0.5%, continue IV isotonic fluid resuscitation + monitor BMP; hold lisinopril diarrhea - Cdiff negative, likely due to influenza, resolving; GI panel pending; prn loperamide polychythemia - due to hemoconcentration from dehydration; resolved influenza A - renally dosed oseltamivir 02/25- HTN - amlodipine; hold lisinopril HTN - statin lumbar radiculopathy - gabapentin VTE ppx - UFH dispo - eventual home In my clinical judgment, the patient requires continued inpatient hospitalization for the following reasons: IV fluids for CHRIS Total time managing care of this patient today: 35 minutes. Quality Stroke Does the patient have a stroke diagnosis?: No VTE Prior VTE?: No VTE Risk Level:: Medical - moderate - high VTE Device Contraindication: Treatment Not Indicated VTE Drug Contraindication: N/A - Med Ordered
[2023-02-26] MEDS: traMADoL HCL 50 MG TABLET PO (11:06)
[2023-02-26] MEDS: Lactated Ringers 1,000 ML 999 ML IV (11:51)
--- NOTE | 2023-02-26 12:55 | MHC.CM.PN ---
IMM 02/26/23, Pt lives with family, he is independent, does not have home health services or medical equipment. He has not used [facility] or been to [facility] before. He will complete HCP here, CM provided form and education on it. Fiance to transport him home upon DC. CM will follow and assist with DC planning.
[2023-02-26 15:07] VITALS: BP 124/70; PULSE 62; RESP 16
[2023-02-26 18:00] VITALS: BP 124/75; PULSE 70; RESP 18; TEMP 36; O2SAT 100
[2023-02-26 19:12] VITALS: BP 118/69; PULSE 66; RESP 18; TEMP 36.1; O2SAT 98
[2023-02-26] MEDS: amLODIPine Besylate 5 MG TABLET PO (20:13)
[2023-02-26] MEDS: Gabapentin 600 MG TABLET PO (20:13)
[2023-02-26] MEDS: Atorvastatin Calcium 80 MG TABLET PO (20:14)
[2023-02-26] MEDS: hydrOXYzine HCL 25 MG TABLET PO (20:14)
[2023-02-27] VITALS: BP 103/57; PULSE 70; RESP 18; TEMP 37.1; O2SAT 98
[2023-02-27 03:56] VITALS: BP 100/58; PULSE 66; RESP 18; TEMP 36.7; O2SAT 96
[2023-02-27] MEDS: Lactated Ringers 1,000 ML 125 ML IVCONT ×3 (05:31→20:46)
[2023-02-27 06:55] VITALS: BP 118/56; PULSE 65; RESP 16; TEMP 36.8; O2SAT 99
[2023-02-27 07:35] LABS: Anion Gap 10 (12-20); Blood Urea Nitrogen 39 mg/dL (9-16); Calcium 8.4 mg/dL (8.4-10.2); Carbon Dioxide 19 mmol/L (22-29); Chloride 115 mmol/L (96-108); Creatinine Clr Calc Pharmacy 34.5; Estimated Glomerular Filt Rate 28; Glucose Random 88 mg/dL (60-115); Potassium 3.9 mmol/L (3.3-5.1); Sodium 140 mmol/L (135-145)
[2023-02-27] MEDS: Lactated Ringers 1,000 ML 999 ML IV (09:30)
--- NOTE | 2023-02-27 09:58 | P.PNIM_ITS ---
Subjective Subjective Date of Service: 02/27/23 Interval History: diarrhea resolved not hypoxic has some chest congestion SCr improving Review of Systems Review of Systems: Yes all other systems are reviewed and are negative Physical Exam 2 Vital Signs: Vital Signs: Last Vital Signs Temp 98.2 F 02/27/23 06:55 Pulse 65 02/27/23 06:55 Resp 16 02/27/23 06:55 BP 118/56 L 02/27/23 06:55 Pulse Ox 99 02/27/23 06:55 O2 Del Method Room Air 02/27/23 06:55 BMI result Body Mass Index 24.1 Gen: in no acute distress HEENT: sclera anicteric, moist mucus membranes Neck: supple Lungs: clear to auscultation bilaterally Heart: regular rate and rhythm, no murmurs Abd: soft, non-tender, non-distended Ext: no edema Skin: warm/well-perfused Neuro: alert and oriented x3, no focal findings Psych: appropriate affect Objective Data Active Medications Acetaminophen (Acetaminophen 325 Mg Tablet) 650 mg PO Q6H PRN PRN Reason: Pain, Mild (Pain Scale 1-3) Amlodipine Besylate (Amlodipine Besylate 5 Mg Tablet) 5 mg PO BEDTIME EMANUEL; Protocol Last Admin: 02/26/23 20:13 Dose: 5 mg Documented By: HILLARY Comments: BP 118/69 H 66 Atorvastatin Calcium (Atorvastatin Calcium 80 Mg Tablet) 80 mg PO BEDTIME EMANUEL Last Admin: 02/26/23 20:14 Dose: 80 mg Documented By: HILLARY Gabapentin (Gabapentin 600 Mg Tablet) 600 mg PO BEDTIME EMANUEL Last Admin: 02/26/23 20:13 Dose: 600 mg Documented By: HILLARY Heparin Sodium (Porcine) (Heparin Sodium,Porcine 5,000 Unit/Ml Vial) 5,000 unit SUBCUT Q12H EMANUEL Last Admin: 02/26/23 23:13 Dose: Not Given Documented By: HILLARY Non-Admin Reason: Patient Refused Hydroxyzine HCl (Hydroxyzine Hcl 25 Mg Tablet) 25 mg PO BEDTIME EMANUEL Last Admin: 02/26/23 20:14 Dose: 25 mg Documented By: HILLARY Hydroxyzine HCl (Hydroxyzine Hcl 25 Mg Tablet) 25 mg PO BID PRN PRN Reason: itch or anxiety Lactated Ringer's (Lr) 1,000 mls @ 125 mls/hr IVCONT .Q8H [facility] Last Admin: 02/27/23 05:31 Dose: 125 mls/hr Documented By: HILLARY Loperamide HCl (Loperamide Hcl 2 Mg Capsule) 2 mg PO Q4H PRN PRN Reason: Loose Stool Melatonin (Melatonin 3 Mg Tablet) 6 mg PO BEDTIME PRN PRN Reason: Insomnia Ondansetron HCl (Ondansetron Hcl 4 Mg/2 Ml Vial) 4 mg IVPUSH Q8H PRN PRN Reason: Nausea and Vomiting Oseltamivir Phosphate (Oseltamivir Phosphate 30 Mg Capsule) 30 mg PO Q24H [facility] Stop: 03/06/23 21:01 Last Admin: 02/26/23 20:14 Dose: 30 mg Documented By: HILLARY Sodium Chloride (0.9 % Sodium Chloride Flush 3 Ml Syringe) 3 ml IVFLUSH QSHIFT [facility] Last Admin: 02/27/23 09:30 Dose: Not Given Documented By: LARISSA Non-Admin Reason: IV Running Tramadol HCl (Tramadol Hcl 50 Mg Tablet) 50 mg PO Q8H PRN PRN Reason: severe back pain Last Admin: 02/26/23 11:06 Dose: 50 mg Documented By: CAROLANN Labs 02/26/23 05:27 02/27/23 06:59 Labs: Laboratory Results - last 24 hr 02/27/23 06:59 Hold Purple Top SEE NOTE Anion Gap 10 L Estim Creat Clear Calc 34.5 Estimated GFR 28 Random Glucose 88 Calcium 8.4 Microbiology Microbiology Results: Microbiology 02/25/23 Unknown Urine Culture - Preliminary Urine clean catch - Urine hare top No growth to date. Assessment and Plan (1) Influenza A: Status: Acute (2) CHRIS (acute kidney injury): Status: Acute Plan 62yo M with HTN + HLD presenting with diarrhea and found to have prerenal CHRIS with SCr 5.38 + influenza A prerenal CHRIS - FENa 0.5%, continue IV isotonic fluid resuscitation + monitor BMP which continues to improve; hold lisinopril diarrhea - Cdiff negative, likely due to influenza, resolving; GI panel pending; prn loperamide polychythemia - due to hemoconcentration from dehydration; resolved influenza A - renally dosed oseltamivir 02/25-03/01 HTN - amlodipine; hold lisinopril HTN - statin lumbar radiculopathy - gabapentin VTE ppx - UFH dispo - eventual home, possibly tomorrow if SCr continues to improve In my clinical judgment, the patient requires continued inpatient hospitalization for the following reasons: IV fluids for CHRIS Total time managing care of this patient today: 35 minutes. Quality Stroke Does the patient have a stroke diagnosis?: No VTE Prior VTE?: No VTE Risk Level:: Medical - moderate - high VTE Device Contraindication: Treatment Not Indicated VTE Drug Contraindication: N/A - Med Ordered
[2023-02-27] MEDS: Heparin Sodium,Porcine 5,000 UNIT/ML VIAL 5000 UNIT SUBCUT (10:22)
--- NOTE | 2023-02-27 10:24 | MHC.CM.PN ---
EMR reviewed. Per MD rounds patient not medically cleared for DC. Anticipate DC home tomorrow, self care. CM will continue to follow.
[2023-02-27 10:42] LABS: Adenovirus F 40/41 Not Detected (Not Detect.); Astrovirus Not Detected (Not Detect.); Campylobacter Not Detected (Not Detect.); Cryptosporidium Not Detected (Not Detect.); Cyclospora cayetanensis Not Detected (Not Detect.); E. coli EAEC Not Detected (Not Detect.); E. coli EPEC Not Detected (Not Detect.); E. coli ETEC Not Detected (Not Detect.); E. coli STEC Not Detected (Not Detect.); Entamoeba histolytica Not Detected (Not Detect.); Giardia lamblia Not Detected (Not Detect.); Norovirus GI/GII Not Detected (Not Detect.); Plesiomonas shigelloides Not Detected (Not Detect.); Rotavirus A Not Detected (Not Detect.); Salmonella Not Detected (Not Detect.); Sapovirus Not Detected (Not Detect.); Shigella sp./EIEC Not Detected (Not Detect.); Vibrio Not Detected (Not Detect.); Vibrio Cholerae Not Detected (Not Detect.); Yersinia enterocolitica Not Detected (Not Detect.)
[2023-02-27 15:19] VITALS: BP 137/77; PULSE 66; RESP 18; TEMP 37.4; O2SAT 97
[2023-02-27 19:10] VITALS: BP 144/79; PULSE 56; RESP 18; TEMP 36.9; O2SAT 98
[2023-02-27] MEDS: 0.9 % Sodium Chloride Flush 3 ML SYRINGE IVFLUSH (20:44)
[2023-02-27] MEDS: Atorvastatin Calcium 80 MG TABLET PO (20:44)
[2023-02-27] MEDS: Melatonin 3 MG TABLET 6 MG PO (20:44)
[2023-02-27] MEDS: traMADoL HCL 50 MG TABLET PO (20:45)
[2023-02-27] MEDS: hydrOXYzine HCL 25 MG TABLET PO (20:45)
[2023-02-27] MEDS: Gabapentin 600 MG TABLET PO (20:45)
[2023-02-27] MEDS: amLODIPine Besylate 5 MG TABLET PO (20:46)
[2023-02-27] MEDS: Oseltamivir Phosphate 30 MG CAPSULE PO (20:46)
[2023-02-28] MEDS: Lactated Ringers 1,000 ML 125 ML IVCONT (03:44)
[2023-02-28 04:00] VITALS: BP 123/60; PULSE 86; RESP 19; TEMP 36.5; O2SAT 98
[2023-02-28 07:33] LABS: Anion Gap 11 (12-20); Blood Urea Nitrogen 23 mg/dL (9-16); Calcium 8.4 mg/dL (8.4-10.2); Chloride 113 mmol/L (96-108); Creatinine Clr Calc Pharmacy 56.4; Estimated Glomerular Filt Rate 49; Glucose Random 89 mg/dL (60-115); Potassium 3.9 mmol/L (3.3-5.1); Sodium 143 mmol/L (135-145)
[2023-02-28 07:48] LABS: Carbon Dioxide 22 mmol/L (22-29)
[2023-02-28 07:54] VITALS: BP 139/76; PULSE 60; RESP 18; TEMP 36.6; O2SAT 99
--- NOTE | 2023-02-28 08:34 | P.DS_ITS ---
DS: Providers Provider Date of Service: 02/28/23 Date of admission: 02/25/23 19:06 Date of discharge: 02/28/23 Primary care physician: Opal Carter MD DS: Diagnosis Discharge Diagnosis (1) Influenza A: Status: Acute (2) CHRIS (acute kidney injury): Status: Acute DS: Summary Hospital Course Hospital Course: from admission H+P by hospitalist Edison Gomez MD: This is a a 62-year-old male with pertinent history of essential hypertension, mixed hyperlipidemia, lumbar radiculopathy who presents to the emergency department for for evaluation of diarrhea. Patient states he did not want to come to the hospital and his forced him to come. He has been having diarrhea for the last 2 weeks, about 10 episodes per day, nonbloody. No associated abdominal pain or vomiting. No fever or chills. Patient states he also has been having occasional intermittent nonproductive cough. His also been sick for the last 10 days with cough. Also has been having malaise, diffuse body aches. Had a rash which resolved. No fever but admits chills. No chest discomfort, palpitations, shortness of breath, changes in urinary habits In the emergency department, patient was found to have acute kidney injury and tested positive for influenza 62yo M with HTN + HLD presenting with diarrhea and found to have prerenal CHRIS with SCr 5.38 + influenza A without hypoxia. He was admitted to the medical- surgical floor and given IV isotonic fluid resusciation and oseltamivir. Lisinopril was held. SCr came down to 1.45 and he was discharged feeling better. He should continue to hold lisinopril until seen by his PCP in 1-2 weeks. Repeat BMP in 1 week was ordered. He was prescribed 2 more days of regularly dosed oseltamivir. Diarrhea was due to influenza; Cdiff PCR was negative. Time Attestation Discharge coordination time: Greater than 30 minutes Quality: Safe Use of Opioids Does Pt have an Active Cancer Diagnosis on the Problem List?: No Quality: Stroke Does the patient have a stroke diagnosis?: No Physical Exam Vital Signs: Vital Signs: Last Vital Signs Temp 97.9 F 02/28/23 07:54 Pulse 60 02/28/23 07:54 Resp 18 02/28/23 07:54 BP 139/76 02/28/23 07:54 Pulse Ox 99 12/23/23 07:54 O2 Del Method Room Air 02/28/23 07:54 BMI result Body Mass Index 24.1 Gen: in no acute distress HEENT: sclera anicteric, moist mucus membranes Neck: supple Lungs: clear to auscultation bilaterally Heart: regular rate and rhythm, no murmurs Abd: soft, non-tender, non-distended Ext: no edema Skin: warm/well-perfused Neuro: alert and oriented x3, no focal findings Psych: appropriate affect DS: Data Data Completed and Pending Completed studies during hospitalization [Text1]: Laboratory Results WBC 6.6 X10*3/uL (4.8-10.8) 02/26/23 05:27 RBC 4.98 X10*6/uL (4.60-5.80) 02/26/23 05:27 Hgb 15.3 g/dl (14.0-18.0) 02/26/23 05:27 Hct 43.3 % (42.0-52.0) 02/26/23 05:27 MCV 86.9 fL (80.0-98.0) 02/26/23 05:27 MCH 30.7 pg (27.0-33.0) 02/26/23 05:27 MCHC 35.3 g/dl (31.0-36.0) 02/26/23 05:27 RDW 13.2 % (11.0-16.0) 02/26/23 05:27 Plt Count 149 X10*3/uL (160-400) L D 02/26/23 05:27 MPV 11.6 fL (9.4-12.4) 02/26/23 05:27 Immature Gran % (Auto) 0.2 % (0.0-0.4) 02/26/23 05:27 Neut % (Auto) 59.3 % (45-73) 02/26/23 05:27 Lymph % (Auto) 30.6 % (20-40) 02/26/23 05:27 Pender % (Auto) 8.8 % (2-11) 02/26/23 05:27 Eos % (Auto) 0.8 % (0-4) 02/26/23 05:27 Baso % (Auto) 0.3 % (0-2) 02/26/23 05:27 Lymph # (Auto) 2.0 X10*3/uL (1.2-4.9) 02/26/23 05:27 Pender # (Auto) 0.6 X10*3/uL (0.1-1.2) 02/26/23 05:27 Eos # (Auto) 0.1 X10*3/uL (0.0-0.4) 02/26/23 05:27 Baso # (Auto) 0.0 X10*3/uL (0.0-0.2) 02/26/23 05:27 Abs Immat Gran (auto) 0.01 X10*3/uL (0.00-0.03) 02/26/23 05:27 Absolute Neuts (auto) 3.9 x10*3/uL (2.0-8.3) 02/26/23 05:27 Absolute Nucleated RBC 0.000 X10*3/uL (0.0-0.012) 02/26/23 05:27 Nucleated RBC % (auto) 0.0 /100WBC (0.0-0.2) 02/26/23 05:27 Hold Purple Top SEE NOTE 02/28/23 06:19 PT 11.4 SEC (11.1-13.3) 02/25/23 11:26 INR 0.9 (0.9-1.1) 02/25/23 11:26 Sodium 143 mmol/L (135-145) 02/28/23 06:19 Potassium 3.9 mmol/L (3.3-5.1) 02/28/23 06:19 Chloride 113 mmol/L (96-108) H 02/28/23 06:19 Carbon Dioxide 22 mmol/L (22-29) 02/28/23 06:19 Anion Gap 11 (12-20) L 02/28/23 06:19 BUN 23 mg/dL (9-16) H 02/28/23 06:19 Creatinine 1.45 mg/dL (0.5-1.4) H 02/28/23 06:19 Estim Creat Clear Calc 56.4 02/28/23 06:19 Estimated GFR 49 02/28/23 06:19 Random Glucose 89 mg/dL (60-115) 02/28/23 06:19 Calcium 8.4 mg/dL (8.4-10.2) 02/28/23 06:19 Total Bilirubin 0.4 mg/dL (0.0-1.0) 02/25/23 11:26 Direct Bilirubin 0.2 mg/dL (0.0-0.5) 02/25/23 11:26 AST 28 U/L (5-37) 02/25/23 11:26 ALT 34 U/L (0-40) 02/25/23 11:26 Alkaline Phosphatase 57 U/L (39-117) 02/25/23 11:26 C-Reactive Protein 0.58 mg/dL (< or = 0.50) H 02/25/23 11:26 B-Natriuretic Peptide < 10 pg/mL (<100) 02/25/23 16:07 Total Protein 8.5 g/dL (6.5-8.0) H 02/25/23 11:26 Albumin 4.9 g/dL (3.5-5.0) 02/25/23 11:26 Urine Color Yellow 02/25/23 21:14 Urine Appearance Clear 02/25/23 21:14 Urine pH 5.5 (5.0-9.0) 02/25/23 21:14 Ur Specific [place] 1.015 (1.005-1.025) 02/25/23 21:14 Urine Protein 100 (2+) mg/dL (Neg-Trace) H 02/25/23 21:14 Urine Glucose (UA) Negative mg/dL (Negative) 02/25/23 21:14 Urine Ketones Negative mg/dL (Negative) 02/25/23 21:14 Urine Blood Trace (Negative) H 02/25/23 21:14 Urine Nitrite Negative (Negative) 02/25/23 21:14 Ur Leukocyte Esterase Negative (Negative) 02/25/23 21:14 Urine RBC 0-2 /HPF (0-2) 02/25/23 21:14 Urine WBC 6-10 /HPF (0-5) H 02/25/23 21:14 Ur Squamous Epith Cells 11-20 /HPF (0-2) 02/25/23 21:14 Urine Bacteria None Seen (None Seen) 02/25/23 21:14 Hyaline Casts 11-20 /LPF (0-2) 02/25/23 21:14 Ur Random Sodium 37.0 mmol/L 02/25/23 21:14 Urine Creatinine 234.95 mg/dL 02/25/23 21:14 Stl C. cayetanensis PCR Not Detected (Not Detect.) 02/26/23 15:08 Stool Rotavirus A PCR Not Detected (Not Detect.) 02/26/23 15:08 Stl Adenov F 40/41 PCR Not Detected (Not Detect.) 02/26/23 15:08 Stool Astrovirus (PCR) Not Detected (Not Detect.) 02/26/23 15:08 Stool Campylobacter PCR Not Detected (Not Detect.) 02/26/23 15:08 Stool Cryptosporidium PCR Not Detected (Not Detect.) 02/26/23 15:08 Stl Sh Tox Pr E STEC PCR Not Detected (Not Detect.) 02/26/23 15:08 Stool E coli O157 PCR Not applicable (Not Detect.) 02/26/23 15:08 Stl Enterotoxigenic E PCR Not Detected (Not Detect.) 02/26/23 15:08 Stool EPEC (PCR) Not Detected (Not Detect.) 02/26/23 15:08 Stool EAEC (PCR) Not Detected (Not Detect.) 02/26/23 15:08 Stl E. histolytica PCR Not Detected (Not Detect.) 02/26/23 15:08 Stool Giardia Lamblia PCR Not Detected (Not Detect.) 02/26/23 15:08 Stl P. shigelloides PCR Not Detected (Not Detect.) 02/26/23 15:08 Stool Salmonella PCR Not Detected (Not Detect.) 02/26/23 15:08 Stool Sapovirus (PCR) Not Detected (Not Detect.) 02/26/23 15:08 Stl Shigella/EIEC PCR Not Detected (Not Detect.) 02/26/23 15:08 St Y.enterocolitica PCR Not Detected (Not Detect.) 02/26/23 15:08 Stool Vibrio (PCR) Not Detected (Not Detect.) 02/26/23 15:08 Stl Vibrio cholerae PCR Not Detected (Not Detect.) 02/26/23 15:08 Stl Norovirus GI/GII PCR Not Detected (Not Detect.) 02/26/23 15:08 C. difficile Tox B Gene NEGATIVE (Negative) 02/25/23 14:41 Influenza Type A (PCR) POSITIVE (Negative) A 02/25/23 11:26 Influenza Type B (PCR) NEGATIVE (Negative) 02/25/23 11:26 RSV RNA Qual (PCR) NEGATIVE (Negative) 02/25/23 11:26 SARS-CoV-2 RNA (RT-PCR) NEGATIVE (Negative) 02/25/23 11:26 Impressions Chest X-Ray 02/25/23 11:12 IMPRESSION: Unremarkable examination. Discharge Plan Discharge Anticipated Discharge Date/Time: 02/28/23 07:32 Patient Disposition: Home, Self-Care Discharge Diagnosis: acute kidney injury due to diarrhea due to influenza A Referrals: Opal Heath MD [Primary Care Provider] - 1 Week Discharge Medications: New oseltamivir 30 mg Capsule 30 mg PO BID Qty: 4 0RF Continued (DME) lancets [FreeStyle Lancets] 28 gauge misc See Rx Instructions .ROUTE .MEDSUPPLY Qty: 100 11RF Rx Instructions: Use 1 lancet once a day tadalafil 20 mg tablet 20 mg PO ONCE PRN (Reason: sexual activity) 30 Days Qty: 30 5RF Rx Instructions: On demand medication take 60 minutes before intended activity (DME) blood-glucose meter [OneTouch Ultra2 Meter] Misc See Rx Instructions .Route Qty: 1 0RF Rx Instructions: As directed (DME) OneTouch Ultra Test Strip See Rx Instructions .Route Qty: 100 3RF Rx Instructions: Use 1 test strip once a day (DME) lancets [OneTouch UltraSoft 2 Lancet] 30 gauge misc See Rx Instructions .Route Qty: 100 3RF Rx Instructions: Use 1 lancet once a day gabapentin 800 mg tablet 1,600 mg PO BEDTIME hydroxyzine HCl 25 mg tablet 25 mg PO BEDTIME amlodipine 5 mg tablet 5 mg PO BEDTIME hydroxyzine HCl 25 mg tablet 25 mg PO BID PRN (Reason: itch or anxiety) rosuvastatin 40 mg tablet 40 mg PO BEDTIME tadalafil 5 mg tablet 5 mg PO Q3D PRN (Reason: Erectile Dysfunction) Rx Instructions: [facility] [facility] [address] [id number] (DME) blood-glucose meter [FreeStyle [place]] Kit See Rx Instructions .ROUTE .MEDSUPPLY Qty: 1 0RF Rx Instructions: As directed (DME) FreeStyle Lite Strips Strip See Rx Instructions .ROUTE .COMPLEX Qty: 50 11RF Dose Instruction: USE 1 TEST STRIP ONCE DAILY Rx Instructions: USE 1 TEST STRIP ONCE DAILY Held lisinopril 5 mg tablet 10 mg PO BEDTIME Hold Instructions: Resume on 04/09/23. hold until seen by PCP Discharge Orders: Discharge Order (Routine); Ordered 02/28/23 Ordered By: Dalila Rios Diet: Low salt diet Activity on Discharge: As tolerated Stand Alone Forms: Patient Portal Discharge page, Work/School Release Other Ambulatory Orders: Basic Metabolic Panel (Routine) Timeframe: 1 Week Facility: [facility] - Location: Laboratory Ordered By: Dalila Rios Care Plan Goals: recovery from influenza Health Concerns: acute kidney injury due to diarrhea due to influenza A Plan of Treatment: take oseltamivir as prescribed HOLD lisinopril for now until seen by PCP labs in 1 week: BMP Please follow up with your primary care doctor within 1 week. Return to the hospital if you experience recurrent or worsening symptoms. Assessment: .ass
--- NOTE | 2023-02-28 09:09 | MHC.CM.PN ---
ppt dcd home no services odered by
== END 2023-02-28 09:15 | disposition home or self-care (01) | DRG 866 ==
LOC: HO.ED 18:19 → HO.EDOVER 19:09 → HO.S3 02-26 16:35
PROVIDERS: Admitting Provider Student in an Organized Health Care Education/Training Program; Emergency Provider Emergency Medicine; PCP Internal Medicine; Visit Provider Family Medicine
DX: J10.2 Influenza due to other identified influenza virus with gastrointestinal manifestations (principal); N17.9 Acute kidney failure, unspecified; F17.210 Nicotine dependence, cigarettes, uncomplicated; E78.2 Mixed hyperlipidemia; M54.16 Radiculopathy, lumbar region; I10 Essential (primary) hypertension; E86.0 Dehydration; D75.1 Secondary polycythemia; Z71.6 Tobacco abuse counseling; Z20.822 Contact with and (suspected) exposure to COVID-19; Z79.899 Other long term (current) drug therapy
CPT/HCPCS: 0241U; 36415; 71046; 80048; 80076; 81001; 82570; 83880; 84300; 85025; 85610; 86140; 87086; 87493; 87507; 99285; J1644; J1650; J2405; J7120

== ENCOUNTER → 2023-02-25 19:06 | Outpatient (BNV) | payer OTHER, SELFPAY | PROVIDERS: Admitting Provider Student in an Organized Health Care Education/Training Program; Emergency Provider Emergency Medicine; PCP Internal Medicine; Visit Provider Student in an Organized Health Care Education/Training Program | DX: J10.1 Influenza due to other identified influenza virus with other respiratory manifestations (principal); N17.9 Acute kidney failure, unspecified | CPT/HCPCS: 99222; 99232; 99239 ==

== ENCOUNTER 2023-03-13 07:54 | Outpatient (REF) | payer OTHER, SELFPAY | END 2023-03-13 07:55 | disposition home or self-care (01) | LOC: HO.LAB 07:54 | PROVIDERS: PCP Internal Medicine; Visit Provider Internal Medicine | DX: Z12.5 Encounter for screening for malignant neoplasm of prostate (principal); N17.9 Acute kidney failure, unspecified; N52.2 Drug-induced erectile dysfunction | CPT/HCPCS: 36415; 80048; 84153 ==

== ENCOUNTER 2023-03-18 12:46 | Outpatient (AMB) | payer MEDICARE, SELFPAY ==
--- NOTE | 2023-03-18 12:52 | MHC.PC.OV ---
Vital Signs 03/18/23 12:54 Height 6 ft Weight 77.678 kg BMI 23.2 BP 120/80 Blood Pressure Location Lt brachial Position Sitting Pulse 82 Pulse Source Pulse Oximeter Pulse Oximetry (%) 98 Oxygen Delivery Method Room Air Intake Visit Reasons: [facility] [place] 02/25-02/28 FLU A, CHRIS Intake Note: Patient is here for hospital discharge follow up. Patient [place] [facility] [place]. Production Support Analyst Required: No Insurance Loss Assessor: Not Required per policy Accompanied by: Self / Same As Patient Allergies No Known Allergies Allergy (Verified 03/18/23 12:54) Medication List - Last Reconciled 03/18/23 by SHANIQUE Blackmon amlodipine 5 mg PO DAILY 90 days blood sugar diagnostic (FreeStyle Lite Strips) USE 1 TEST STRIP ONCE DAILY blood sugar diagnostic (OneTouch Ultra Test strips) Use 1 test strip once a day blood-glucose meter (FreeStyle [place] kit) As directed blood-glucose meter (OneTouch Ultra2 Meter) As directed gabapentin 1,600 mg PO BEDTIME hydroxyzine HCl 25 mg PO BEDTIME hydroxyzine HCl 25 mg PO Q8H PRN 30 days lancets (OneTouch UltraSoft 2 Lancet) Use 1 lancet once a day lancets (FreeStyle Lancets) Use 1 lancet once a day lisinopril 10 mg PO BEDTIME loratadine 10 mg PO DAILY rosuvastatin 40 mg PO BEDTIME tadalafil 20 mg PO ONCE PRN 30 days tadalafil 5 mg PO DAILY 90 days Tobacco use date assessed: 03/18/23 Fall risk assessment: No Falls in past year Last assessed Fall Risk: 03/18/23 Dental Screening Dental Screen Date: 03/18/23 Did you have a dental visit in the last 12 months?: No Did you have a dental problem in the last 6 months where you did not have access to dental care?: No Was dental information given to patient?: Patient has dentist HPI HPI Comments History of Present Illness Details 62-year-old male with history of hypertension, hyperlipidemia, CKD stage 3, pre diabetes versus type 2 diabetes, who is a current everyday cigarette smoker presents to the office today for hospital discharge follow-up. He was admitted to [facility] from 02/25-02/28 due to influenza a and acute kidney injury. The patient was symptomatic with nonproductive cough, fevers up to 102, malaise, myalgias, and rash. He had also been having copious diarrhea. He states he was tolerating fluids but was not able to keep up with the amount of diarrhea that he was having. On arrival to the ED, he was noted to be hemoconcentrated/hypovolemic with WBC 11.2, H/H 18.4/53.5. His creatinine was 4.56, BUN 45. Chest x-ray was negative for any acute cardiopulmonary abnormality though he did test positive for influenza A. He was treated with renally adjusted Tamiflu and aggressively resuscitated with isotonic fluids. C diff PCR in GI panel were all negative and diarrhea was treated with loperamide. Renal function did gradually improve. Electrolyte levels remained stable throughout admission. He was able to tolerate diet and was discharged to complete course of Tamiflu. Lisinopril was also held throughout admission due to CHRIS and he was advised to resume this in about 2 weeks which she has done. He has also had repeat BMP performed and renal function has returned to baseline with creatinine 1.39, BUN 12, and GFR 49. Today he states he is feeling much better though does have an occasional cough which is improving. There is some postnasal drip as well. No ongoing fevers or chills. He does continue smoking 1/2ppd. Has tried quitting but was only successful with chantix. He has resumed his lisinopril and blood pressure is controlled in the office today at 120/80. He did also have PSA drawn last week which was elevated at 6.06. He does have upcoming appointment with Urology on 04/14. No known history of diagnosed BPH or prostate cancer. He does endorse polyuria but no urinary retention. He also tells me he checks his glucose every morning which is typically around 90 fasting. He states he was diagnosed with type 2 diabetes several years ago due to an isolated elevated A1c of 7.1. He was started on metformin but never took the medication. He has not had any other A1c levels in diabetic range though does appear to be prediabetic. He has been working on lifestyle modifications. [facility] Medical History CKD (chronic kidney disease) stage 3, GFR 30-59 ml/min Lumbar spondylosis Microalbuminuria Erectile dysfunction Erectile dysfunction CKD (chronic kidney disease) Dyslipidemia Essential hypertension Diabetes mellitus Smoker Right shoulder pain Lumbar radiculopathy Cervical radiculopathy History of heroin abuse Thoracic back pain Cervical pain Pain in right hand Pain in right knee Pain in right shoulder Surgical History Hx of neck surgery History of shoulder surgery History of hydrocelectomy Hx of cholecystectomy H/O shoulder surgery History of knee surgery H/O hand surgery Family History Father Esophageal cancer Mother Diabetes Hypertension Dementia Social History Household Members: Family Household Members Other:: lives w ex-, daughter & son lives upstairs Housing: House Do you presently have visiting nurse or other home services: No Alcohol intake: former Patient Tobacco Use Status: Current everyday Tobacco user Tobacco use type: Cigarette Cigarette Packs Per Day: 0.5 Cigarettes Per Day: 10 e-Cigarette/Vaping Use: Never Used Second Hand Smoke Exposure: Yes service: No Current occupational status: disabled 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 1. Little interest or pleasure in doing things: not at all 2. Feeling down, depressed, or hopeless: not at all 3. Trouble falling or staying asleep, or sleeping too much: not at all 4. Feeling tired or having little energy: not at all 5. Poor appetite or overeating: not at all 6. Feeling bad about yourself - or that you are a failure or have let yourself or your family down: not at all 7. Trouble concentrating on things, such as reading the newspaper or watching television: not at all 8. Moving or speaking so slowly that other people could have noticed. Or the opposite - being so fidgety or restless that you have been moving around a lot more than usual: not at all 9. Thoughts that you would be better off or of hurting yourself in some way: not at all Total score: 0 Depression Screening Interpretation: Negative Depression Screening Done: Yes Source: Developed by Drs. Levi Palomares, Hannah Richard, Daniel Hicks and colleagues, with an educational evelyne from [employer]. Thrive Questionnaire Date Thrive assessed: 03/18/23 I am a: Patient What is your living situation today?: I have a steady place to live Within the past 12 months, did the food you bought not last and you didn't have the money to get more?: Never true Within the past 12 months, did you worry whether your food would run out before you got money to buy more?: Never true Do you have trouble paying for medicines?: No Do you have trouble getting transportation to medical appointments?: No Do you have trouble paying your heating and electricity bill?: No Do you have trouble taking care of your child, family member or friend?: No Do you have trouble with day-to-day activities such as bathing, preparing meals, shopping, managing finances, etc.?: No Are you currently unemployed and looking for a job?: No Are you interested in more education?: No Currently or been in a relationship where the following occur: no concerns reported AUDIT C Alcohol Use Questionnaire (AUDIT-C) 1. How often do you have a drink containing alcohol?: Never Total Score: 0 ARTURO-7 AMB Questionnaire ARTURO-7 Date ARTURO - 7 assessed: 03/18/23 Feeling nervous, anxious, or on edge: 0 = Not at all Not being able to stop or control worryin = Not at all Worrying too much about different things: 0 = Not at all Trouble relaxin = Not at all Being so restless that it is hard to sit still: 0 = Not at all Becoming easily annoyed or irritable: 0 = Not at all Feeling afraid as if something awful might happen: 0 = Not at all Total ARTURO-7 score (0-4 normal; 5-9 mild; 10-14 moderate; 15-21 severe): 0 Source: Developed by Drs. Levi Palomares, Daniel Powers and colleagues, with an educational evelyne from [employer]. Review of Systems Const All systems reviewed & are unremarkable except as noted in HPI and below Physical exam (Primary Care) Vital Signs: Last Vital Signs Pulse 82 03/18/23 12:54 BP 120/80 03/18/23 12:54 Pulse Ox 98 03/18/23 12:54 Oxygen Delivery Method Room Air 03/18/23 12:54 BMI result Body Mass Index 23.2 Tobacco/Smoking Status: Tobacco use Status Tobacco use date assessed 03/18/23 03/18/23 13:00 Patient Tobacco Use Status Current everyday Tobacco 03/18/23 13:00 Tobacco use type Cigarette 03/18/23 13:00 e-Cigarette/Vaping Use Never Used 03/18/23 13:00 PHQ-9: PHQ-9 Score PHQ-9: Total score 0 03/18/23 13:35 Depression Screening Interpretation: Negative Thrive Assessment: Date of Thrive Assessment Date Thrive assessed 03/18/23 03/18/23 13:00 Currently or been in a relationship where the following occur: no concerns reported Const Other: Constitutional - Awake and Alert, No apparent distress Eyes - PERRLA, EOMI Cardiovascular - S1S2, RRR, No edema Respiratory - Normal lung expansion, Normal respiratory effort, No respiratory distress, CTA bilaterally Skin - Warm/Dry Neurological - Alert & oriented x3, moving extremities independently Psychological - Appropriate affect Results Reviewed Results Reviewed: ED provider note, cbc, cmp, cxr, H&P, discharge summary Assessment and Plan Assessment & Plan (1) Influenza A: Code(s): J10.1 - Influenza due to other identified influenza virus with other respiratory manifestations Plan: Admitted to the hospital from 02/25-02/28 due to influenza a with significant diarrhea and CHRIS. Completed course of Tamiflu for treatment of influenza. Symptoms have largely resolved. He is given prescription for loratadine and advised to use Flonase for ongoing, though improving, cough/postnasal drip. (2) CHRIS (acute kidney injury): Code(s): N17.9 - Acute kidney failure, unspecified Plan: Due to hypovolemia secondary to GI losses/diarrhea. Resolved following aggressive IV fluid resuscitation. Renal function has returned to baseline. (3) CKD (chronic kidney disease) stage 3, GFR 30-59 ml/min: Comment: few kidney cysts, on right Code(s): N18.30 - Chronic kidney disease, stage 3 unspecified Plan: Renal function has returned to baseline with creatinine 1.39, BUN 12, GFR 49. Continue low-sodium diet, increased water intake. Continue lisinopril for renal protection (4) Smoker: Code(s): F17.200 - Nicotine dependence, unspecified, uncomplicated Plan: Lungs clear to auscultation bilaterally. Patient strongly advised to quit smoking. Unfortunately Chantix which has helped him quit in the past is off the market. He declines prescription for nicotine patches/gum stating he has these at home. Advised to continue working to cut back gradually on the number of cigarettes smoked daily. Counseled on complete cessation. (5) Diabetes mellitus: Code(s): E11.9 - Type 2 diabetes mellitus without complications Qualifiers: Diabetes mellitus complication status: with hyperglycemia Diabetes mellitus fdc insulin use: without superintendent container terminal use Diabetes mellitus type: type 2 Qualified Code(s): E11.65 - Type 2 diabetes mellitus with hyperglycemia Plan: Patient previously diagnosed with type 2 diabetes due to isolated elevated hemoglobin A1c of 7.1%. A1c levels are currently in the prediabetic range. He he will continue working on lifestyle modification with diet low in carbohydrate/sugar. Advised fasting glucose levels should between 90-130. Advised to check fasting levels occassionally. Does not need to check sugar twice daily every day. Hgb A1c ordered to be completed prior to follow up with pcp in 3-4 months. (6) Essential hypertension: Code(s): I10 - Essential (primary) hypertension Plan: Controlled with blood pressure 120/80. Continue lisinopril 10 mg and amlodipine 5 mg daily. Low-sodium diet. (7) Hospital discharge follow-up: Code(s): Z09 - Encounter for follow-up examination after completed treatment for conditions other than malignant neoplasm Plan: As above. Discharge medications reviewed and reconciled. Follow up with PCP in 3-4 months. Orders: Orders Basic Metabolic Panel 3 Months N18.30 - Chronic kidney disease, stage 3 unspecified Lipid Panel Today E11.9 - Type 2 diabetes mellitus without complications, E78.5 - Hyperlipidemia, unspecified, I10 - Essential (primary) hypertension Hemoglobin A1c Today E11.9 - Type 2 diabetes mellitus without complications, E78.5 - Hyperlipidemia, unspecified, N18.30 - Chronic kidney disease, stage 3 unspecified Medications: New loratadine 10 mg PO DAILY 30 tabs 0RF Discontinued oseltamivir Discontinued Reason: Patient Completed Course 30 mg PO BID 4 caps 0RF Coding Level of Care Code Est Pt Level 5 (14103) Diagnoses Influenza A J10.1 CHRIS (acute kidney injury) N17.9 CKD (chronic kidney disease) stage 3, GFR 30-59 ml/min N18.30 Smoker F17.200 Type 2 diabetes mellitus with hyperglycemia, without long-term current use of insulin E11.65 Diabetes mellitus complication status: with hyperglycemia Diabetes mellitus fdc insulin use: without fdc use Diabetes mellitus type: type 2 Essential hypertension I10 Hospital discharge follow-up Z09 Time Spent (min) 45 Comment time spent reviewing, interview/exam, documentation time
[2023-03-18 12:54] VITALS: BP 120/80; PULSE 82; O2SAT 98; BMI 23.2
== END 2023-03-18 13:41 | disposition home or self-care (01) ==
PROVIDERS: PCP Internal Medicine; Visit Provider Physician Assistant
DX: J10.1 Influenza due to other identified influenza virus with other respiratory manifestations (principal); N17.9 Acute kidney failure, unspecified; I12.9 Hypertensive chronic kidney disease with stage 1 through stage 4 chronic kidney disease, or unspecified chronic kidney disease; N18.30 Chronic kidney disease, stage 3 unspecified
CPT/HCPCS: 99215

== ENCOUNTER 2023-04-14 11:40 | Outpatient (AMB) | payer MEDICARE, SELFPAY ==
--- NOTE | 2023-04-14 11:57 | A.OFFVIS_ITS ---
Intake Intake Visit Reasons: 6M PSA(set) Intake Note: Patient is Present for Follow Up PSA Urology Medication:Tadalafil Antibiotic Allergies:None Blood Thinners: None Allergies No Known Allergies Allergy (Verified 03/18/23 12:54) Medication List - Last Reconciled 04/14/23 by Vinayak Kwong MD amlodipine 5 mg PO DAILY 90 days blood sugar diagnostic (FreeStyle Lite Strips) USE 1 TEST STRIP ONCE DAILY blood sugar diagnostic (OneTouch Ultra Test strips) Use 1 test strip once a day blood-glucose meter (FreeStyle [place] kit) As directed blood-glucose meter (OneTouch Ultra2 Meter) As directed gabapentin 1,600 mg PO BEDTIME hydroxyzine HCl 25 mg PO BEDTIME hydroxyzine HCl 25 mg PO Q8H PRN 30 days lancets (OneTouch UltraSoft 2 Lancet) Use 1 lancet once a day lancets (FreeStyle Lancets) Use 1 lancet once a day lisinopril 10 mg PO BEDTIME loratadine 10 mg PO DAILY rosuvastatin 40 mg PO BEDTIME tadalafil 10 mg PO DAILY 90 days tadalafil 20 mg PO ONCE PRN 30 days HPI HPI Comments History of Present Illness Details Blas is a pleasant male. He is a patient of Dr. Carter. He is seen for the following urologic conditions - progressive erectile dysfunction PSA elevated 6.1 Repeat in 4 weeks with no coffee, no intercourse the night before SAM 2+ soft Response to tadalafil starting to decline Try increasing to 10 mg daily He had experimented with taking 40 mg on demand Erectile dysfunction background diabetes Progressive diabetic - HbA1c 6.1 Symptoms progressive Able to obtain but cannot maintain erection Previously used sildenafil 50 mg Current medication 5 mg daily tadalafil, 20 mg on Atherosclerotic Cardiovascular Risk Assessment Dyslipidemia - treatment with high-intensity statins rosuvastatin 40 mg daily Diabetes - management with low-carbohydrate diet, prior metformin - HBA1c 11/28 5.8 Hypertension - lisinopril [facility] Medical History (Updated 04/14/23 @ 12:14 by Vinayak Kwong MD) Erectile dysfunction CKD (chronic kidney disease) stage 3, GFR 30-59 ml/min Lumbar spondylosis Microalbuminuria Erectile dysfunction CKD (chronic kidney disease) Dyslipidemia Essential hypertension Diabetes mellitus Smoker Right shoulder pain Lumbar radiculopathy Cervical radiculopathy History of heroin abuse Thoracic back pain Cervical pain Pain in right hand Pain in right knee Pain in right shoulder Surgical History Hx of neck surgery History of shoulder surgery History of hydrocelectomy Hx of cholecystectomy H/O shoulder surgery History of knee surgery H/O hand surgery Family History Father Esophageal cancer Mother Diabetes Hypertension Dementia Social History Household Members: Family Household Members Other:: lives w ex-, daughter & son lives upstairs Housing: House Do you presently have visiting nurse or other home services: No Alcohol intake: former Patient Tobacco Use Status: Current everyday Tobacco user Tobacco use type: Cigarette Cigarette Packs Per Day: 0.5 Cigarettes Per Day: 10 e-Cigarette/Vaping Use: Never Used Second Hand Smoke Exposure: Yes service: No Current occupational status: disabled 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 Cognitive needs: No Hearing needs: No Vision needs: Yes (glasses) Review of Systems Const Denies chills and Denies fever(s) Card Reports no additional complaints and Denies syncope Resp Denies cough GI Denies abdominal pain and Denies heartburn Reports as per HPI and Denies change in libido Neuro Denies syncope Psych Denies change in libido Endo Denies change in libido Physical Exam Const General: cooperative, healthy appearing, comfortable and no acute distress Orientation/consciousness: patient oriented x3 HEENT Face and sinus: Yes normal facial exam Mouth: moist mucous membranes Neck Neck: Yes normal visual inspection, Yes full ROM and Yes trachea midline Chest Chest palpation & inspection: normal inspection of the chest Resp Effort & Inspection: normal respiratory effort, able to speak in complete sentences and no respiratory distress GI Inspection: Yes normal to inspection Rectal Exam - Male: Yes normal sphincter tone and Yes prostate normal Male General Exam: Yes normal external exam Penis: normal penis and circumcised Meatus: meatus normal Scrotum: scrotum normal Testes: Testes normal Back/Spine/Pelvis Cervical Spine: normal cervical lordosis Thoracic/Lumbar Spine: thoracic and lumbar spine normal to inspection Skin General skin exam: no rashes or lesions noted Neuro General: patient oriented x3, gait normal, tone normal and moves all extremities Extrem General: Yes normal to inspection and Yes capillary refill normal Assessment & Plan Assessment & Plan (1) Erectile dysfunction: Code(s): N52.9 - Male erectile dysfunction, unspecified (2) Elevated PSA: Code(s): R97.20 - Elevated prostate specific antigen [PSA] Plan Four week follow-up PSA Orders: Orders PSA,Total (Free>4and<10) 4 Weeks R97.20 - Elevated prostate specific antigen [PSA] Patient Instructions: Imaging studies, laboratory and physical exam results were discussed and reviewed in detail. No major barriers to patient understanding were identified. An opportunity to ask questions regarding the treatment plan was provided. All questions were answered. The patient expressed understanding and agreement with the above treatment plan. The patient is aware they should contact our office by phone for worsening of their current condition or the appearance of new urologic symptoms. Compliance is encouraged with any medications and followup testing that is ordered. It is a privilege to participate in the urologic care of your patient. If you have any questions or concerns regarding treatment for the above conditions, or other urologic issues, please do not hesitate to contact me. The office telephone contact is [phone]. This note is constructed using voice recognition software. While every effort has been made to ensure accuracy cable assembler errors may have been included. Yours sincerely, Dr Vinayak Kwong MD, [facility] - Urology Providers of Expert, Compassionate Care for the Genitourinary System Coding Level of Care Code Est Pt Level 4 (94073) Diagnoses Erectile dysfunction N52.9 Elevated PSA R97.20
== END 2023-04-14 12:17 | disposition home or self-care (01) ==
PROVIDERS: PCP Internal Medicine; Visit Provider Urology
DX: N52.9 Male erectile dysfunction, unspecified (principal); R97.20 Elevated prostate specific antigen [PSA]
CPT/HCPCS: 99214

== ENCOUNTER → 2023-04-14 11:40 | Outpatient (BNVA) | payer MEDICARE, SELFPAY | PROVIDERS: PCP Internal Medicine; Visit Provider Urology | DX: N52.9 Male erectile dysfunction, unspecified (principal); R97.20 Elevated prostate specific antigen [PSA] | CPT/HCPCS: 99212 ==

== ENCOUNTER 2023-04-20 08:43 | Outpatient (AMB) | payer MEDICARE, SELFPAY ==
--- NOTE | 2023-04-20 08:48 | MHC.OFFVIS ---
Intake Vital Signs 04/20/23 08:51 Height 6 ft Weight 169 lb BMI 22.9 BP 133/74 Blood Pressure Location Lt brachial Position Sitting Respiration 12 Pulse 92 Pulse Source Pulse Oximeter Pulse Oximetry (%) 99 Oxygen Delivery Method Room Air Intake Visit Reasons: Follow Up/Procedure Discussion Allergies No Known Allergies Allergy (Verified 04/20/23 08:53) Medication List - Last Reconciled 04/20/23 by Sarahy Epstein LPN amlodipine 5 mg PO DAILY 90 days blood sugar diagnostic (FreeStyle Lite Strips) USE 1 TEST STRIP ONCE DAILY blood sugar diagnostic (OneTouch Ultra Test strips) Use 1 test strip once a day blood-glucose meter (FreeStyle [place] kit) As directed blood-glucose meter (OneTouch Ultra2 Meter) As directed gabapentin 1,600 mg PO BEDTIME hydroxyzine HCl 25 mg PO BEDTIME hydroxyzine HCl 25 mg PO Q8H PRN 30 days lancets (OneTouch UltraSoft 2 Lancet) Use 1 lancet once a day lancets (FreeStyle Lancets) Use 1 lancet once a day lisinopril 10 mg PO BEDTIME loratadine 10 mg PO DAILY rosuvastatin 40 mg PO BEDTIME tadalafil 10 mg PO DAILY 90 days tadalafil 20 mg PO ONCE PRN 30 days HPI Follow Up/Procedure Discussion HPI Details 62-year-old male who presents today to the office for a follow-up procedure discussion. He states that he completed psychological clearance in December 2022 but has not received any call to schedule an implant appointment. He states that they tried to charge him but he has not paid the copay yet. He reports allergic reactions to the skin after receiving vaccines at [facility]. Past Procedures: 07/09/2022: Transforaminal epidural steroid injection, Right L4/5: Resolution of radicular symptoms; L5 TP injection: Relief for 1 week before return of symptoms 11/06/21: PNS Trial ? 90% pain relief for 6 months. 07/31/21: Right L3-L4-L5 RFA ? Excellent relief for 5 days. 07/17/21: Left L3-L4-L5 RFA ? Excellent relief that is ongoing. 05/01/20: Bilateral Diagnostic L3-L4-L5 MBBs ? 80% relief for one day. 03/06/21: Bilateral Diagnostic L3-L4-L5 MBBs ? 80% relief for one day. [facility] Medical History (Updated 04/20/23 @ 10:08 by Juan Vásquez MD) Erectile dysfunction CKD (chronic kidney disease) stage 3, GFR 30-59 ml/min Lumbar spondylosis Microalbuminuria Erectile dysfunction CKD (chronic kidney disease) Dyslipidemia Essential hypertension Diabetes mellitus Smoker Right shoulder pain Lumbar radiculopathy Cervical radiculopathy History of heroin abuse Thoracic back pain Cervical pain Pain in right hand Pain in right knee Pain in right shoulder Surgical History Hx of neck surgery History of shoulder surgery History of hydrocelectomy Hx of cholecystectomy H/O shoulder surgery History of knee surgery H/O hand surgery Family History Father Esophageal cancer Mother Diabetes Hypertension Dementia Social History Household Members: Family Household Members Other:: lives w ex-, daughter & son lives upstairs Housing: House Do you presently have visiting nurse or other home services: No Alcohol intake: former Patient Tobacco Use Status: Current everyday Tobacco user Tobacco use type: Cigarette Cigarette Packs Per Day: 0.5 Cigarettes Per Day: 10 e-Cigarette/Vaping Use: Never Used Second Hand Smoke Exposure: Yes service: No Current occupational status: disabled 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 Alert and oriented. Mood and affect appropriate. Follows and participates in conversation appropriately. Respiratory effort is unlabored. Able to transition from sit to stand unassisted. Ambulates with bilaterally normal heel strike and toe off. Results Reviewed Results Reviewed: No imaging is available for review. 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 Once we have more insight, we will let the patient know. Scribed for Dr. Vásquez by Adan Osorio, medical billing supervisor, on 04/20/2023. I, Dr. Vásquez, have personally reviewed and agree with the information entered by the scribe. 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
[2023-04-20 08:51] VITALS: BP 133/74; PULSE 92; RESP 12; O2SAT 99; BMI 22.9
== END 2023-04-20 09:14 | disposition home or self-care (01) ==
PROVIDERS: PCP Internal Medicine; Visit Provider Internal Medicine
DX: Q76.49 Other congenital malformations of spine, not associated with scoliosis (principal); M54.9 Dorsalgia, unspecified
CPT/HCPCS: 99213

== ENCOUNTER → 2023-04-20 08:43 | Outpatient (BNVA) | payer MEDICARE, SELFPAY | PROVIDERS: PCP Internal Medicine; Visit Provider Internal Medicine | DX: Q76.49 Other congenital malformations of spine, not associated with scoliosis (principal); M54.9 Dorsalgia, unspecified | CPT/HCPCS: 99212 ==

== ENCOUNTER 2023-04-27 08:36 | Outpatient (AMB) | payer MEDICARE, SELFPAY ==
--- NOTE | 2023-04-27 08:38 | MHC.PC.OV ---
Vital Signs 04/27/23 08:39 Height 6 ft Weight 168 lb BMI 22.8 BP 136/80 Blood Pressure Location Lt brachial Position Sitting Intake Visit Reasons: rash/burning sensation on forehead Intake Note: Patient here c/o spreading rash started on forehead, weightloss Job Placement Counselor Required: No Accompanied by: Self / Same As Patient Allergies No Known Allergies Allergy (Verified 04/27/23 09:03) Medication List - Last Reconciled 04/27/23 by Opal Carter MD amlodipine 5 mg PO DAILY 90 days blood sugar diagnostic (FreeStyle Lite Strips) USE 1 TEST STRIP ONCE DAILY blood sugar diagnostic (OneTouch Ultra Test strips) Use 1 test strip once a day blood-glucose meter (FreeStyle [place] kit) As directed blood-glucose meter (OneTouch Ultra2 Meter) As directed gabapentin 1,600 mg PO BEDTIME hydroxyzine HCl 25 mg PO BEDTIME hydroxyzine HCl 25 mg PO Q8H PRN 30 days lancets (OneTouch UltraSoft 2 Lancet) Use 1 lancet once a day lancets (FreeStyle Lancets) Use 1 lancet once a day lisinopril 10 mg PO BEDTIME loratadine 10 mg PO DAILY rosuvastatin 40 mg PO BEDTIME tadalafil 10 mg PO DAILY 90 days tadalafil 20 mg PO ONCE PRN 30 days Tobacco use date assessed: 03/18/23 Fall risk assessment: No Falls in past year Last assessed Fall Risk: 04/27/23 Dental Screening Dental Screen Date: 04/27/23 Did you have a dental visit in the last 12 months?: Yes Did you have a dental problem in the last 6 months where you did not have access to dental care?: No Was dental information given to patient?: Patient has dentist HPI HPI Comments History of Present Illness Details This is a 62-year-old male with hypertension and chronic kidney disease stage 3 that comes today complaining of a pruritic rash in scalp, forehead and arms. This started few days ago and skin looks like it is peeling. I will give him a prednisone pack and refer him to Dermatology. He denies any new foods or detergents. Blood pressure stable. Chronic kidney disease is follow by Nephrology. Also complains of some weight loss with polyuria and polydipsia and fasting blood glucose will be checked. [facility] Medical History (Updated 04/27/23 @ 09:26 by Opal Catrer MD) Erectile dysfunction associated with type 2 diabetes mellitus Erectile dysfunction CKD (chronic kidney disease) stage 3, GFR 30-59 ml/min Lumbar spondylosis Microalbuminuria Erectile dysfunction CKD (chronic kidney disease) Dyslipidemia Essential hypertension Diabetes mellitus Smoker Right shoulder pain Lumbar radiculopathy Cervical radiculopathy History of heroin abuse Thoracic back pain Cervical pain Pain in right hand Pain in right knee Pain in right shoulder Surgical History Hx of neck surgery History of shoulder surgery History of hydrocelectomy Hx of cholecystectomy H/O shoulder surgery History of knee surgery H/O hand surgery Family History Father Esophageal cancer Mother Diabetes Hypertension Dementia Social History Household Members: Family Household Members Other:: lives w ex-, daughter & son lives upstairs Housing: House Do you presently have visiting nurse or other home services: No Alcohol intake: former Patient Tobacco Use Status: Current everyday Tobacco user Tobacco use type: Cigarette Cigarette Packs Per Day: 0.5 Cigarettes Per Day: 10 e-Cigarette/Vaping Use: Never Used Second Hand Smoke Exposure: Yes service: No Current occupational status: disabled 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 Levi Palomares, Hannah Richard, Daniel Hicks and colleagues, with an educational evelyne from [employer]. Review of Systems Const All systems reviewed & are unremarkable except as noted in HPI and below Eyes Reports no additional complaints, Denies change in vision and Denies other visual disturbances Card Denies chest pain at rest, Denies chest pain with activity, Denies edema, Denies irregular heart rhythm, Denies claudication, Denies dyspnea, Denies dyspnea on exertion, Denies orthopnea, Denies paroxysmal nocturnal dyspnea and Denies slow heart rate Resp Denies cough, Denies dyspnea and Denies dyspnea on exertion GI Denies abdominal pain, Denies change in bowel habits, Denies excessive flatus, Denies nausea and Denies vomiting Denies urinary hesitancy, Denies urinary incontinence and Denies urinary urgency Musc Denies abnormal gait, Denies atrophy, Denies deformity and Denies limited range of motion Skin/Breast Denies bleeding lesions, Denies changing lesions and Reports rash Neuro Denies abnormal gait, Denies behavioral changes and Denies lack of coordination Psych Denies behavioral changes Physical exam (Primary Care) Vital Signs: Last Vital Signs BP 136/80 04/27/23 08:39 BMI result Body Mass Index 22.8 Tobacco/Smoking Status: Tobacco use Status Tobacco use date assessed 03/18/23 04/27/23 08:38 Patient Tobacco Use Status Current everyday Tobacco 04/27/23 08:38 Tobacco use type Cigarette 04/27/23 08:38 e-Cigarette/Vaping Use Never Used 04/27/23 08:38 Thrive Assessment: Date of Thrive Assessment Date Thrive assessed 03/18/23 04/27/23 08:38 Eyes General: appearance normal, both eyes and all related structures Eyelids: Yes eyelids normal Conjunctivae: conjunctivae normal Neck Neck: Yes normal visual inspection and Yes supple Resp Effort & Inspection: normal respiratory effort Auscultation: clear to auscultation bilaterally Cardio Jugular venous distension: no JVD Rate: regular rate Rhythm: regular rhythm Heart sounds: S1 normal heart sound present and S2 normal heart sound present Skin Rashes: rashes noted Extrem General: Yes full ROM Assessment and Plan Assessment & Plan (1) Weight loss: Code(s): R63.4 - Abnormal weight loss Plan: Labs ordered. (2) Rash: Comment: do labs Code(s): R21 - Rash and other nonspecific skin eruption Plan: Start prednisone. (3) CKD (chronic kidney disease) stage 3, GFR 30-59 ml/min: Comment: few kidney cysts, on right Code(s): N18.30 - Chronic kidney disease, stage 3 unspecified Plan: Follow-up with nephrology. Keep blood pressure less than 140/90. Avoid NSAIDs. (4) Essential hypertension: Code(s): I10 - Essential (primary) hypertension Plan: Continue lisinopril and amlodipine. Blood pressure goal is equal or less 130/80. Orders: Orders Lipid Panel Today E78.5 - Hyperlipidemia, unspecified Comprehensive [place]. Panel Fast Today R63.4 - Abnormal weight loss Complete Blood Count Auto Diff Today R63.4 - Abnormal weight loss SARS-CoV2/FLU/RSV Today R09.89 - Other specified symptoms and signs involving the circulatory and respiratory systems Thyroid Stimulating Hormone Today R63.4 - Abnormal weight loss Referrals Dermatology Referral R21 - Rash and other nonspecific skin eruption Medications: New prednisone Take 4 tabs for 2 days, then 3 tabs for 2 days, then 2 tabs for 2 days, then 1 tab for 2 days 10 mg PO DIRECTED 8 days 20 tabs 0RF R21 - Rash and other nonspecific skin eruption Coding Level of Care Code Est Pt Level 4 (68229) Diagnoses Weight loss R63.4 Rash R21 CKD (chronic kidney disease) stage 3, GFR 30-59 ml/min N18.30 Essential hypertension I10 Time Spent (min) 23
[2023-04-27 08:39] VITALS: BP 136/80; BMI 22.8
== END 2023-04-27 09:13 | disposition home or self-care (01) ==
PROVIDERS: PCP Internal Medicine; Visit Provider Internal Medicine
DX: R63.4 Abnormal weight loss (principal); R21 Rash and other nonspecific skin eruption; I12.9 Hypertensive chronic kidney disease with stage 1 through stage 4 chronic kidney disease, or unspecified chronic kidney disease; N18.30 Chronic kidney disease, stage 3 unspecified
CPT/HCPCS: 99214

== ENCOUNTER 2023-04-28 06:06 | Outpatient (REF) | payer MEDICARE, SELFPAY ==
[2023-04-28 06:27] LABS: MANUAL DIFF FLAG NO
[2023-04-28 06:30] LABS: Basophils Percent Auto 0.3 % (0-2); Eosinophils Absolute Auto 0.2 X10*3/uL (0.0-0.4); Eosinophils Percent Auto 2.2 % (0-4); Hematocrit 41.8 % (42.0-52.0); Hemoglobin 14.5 g/dl (14.0-18.0); Imm Gran Abs Auto 0.05 X10*3/uL (0.00-0.03); Imm Gran Pct Auto 0.5 % (0.0-0.4); Lymphocytes Absolute Auto 2.4 X10*3/uL (1.2-4.9); Lymphocytes Percent Auto 26.2 % (20-40); Mean Corpuscular HGB Conc 34.7 g/dl (31.0-36.0); Mean Corpuscular Volume 89.5 fL (80.0-98.0); Mean Platelet Volume 10.1 fL (9.4-12.4); Monocytes Absolute Auto 0.5 X10*3/uL (0.1-1.2); Monocytes Percent Auto 5.5 % (2-11); Neutrophils Absolute Auto 6.1 x10*3/uL (2.0-8.3); Neutrophils Percent Auto 65.3 % (45-73); Platelet Count 274 X10*3/uL (160-400); Red Blood Count 4.67 X10*6/uL (4.60-5.80); Red Cell Distribution Width 12.9 % (11.0-16.0); White Blood Count 9.3 X10*3/uL (4.8-10.8)
[2023-04-28 06:51] LABS: Alanine Aminotransferase 20 U/L (0-40); Alkaline Phosphatase 48 U/L (39-117); Anion Gap 13 (12-20); Aspartate Amino Transferase 17 U/L (5-37); Bilirubin Total 0.4 mg/dL (0.0-1.0); Blood Urea Nitrogen 14 mg/dL (9-16); Calcium 9.9 mg/dL (8.4-10.2); Carbon Dioxide 26 mmol/L (22-29); Chloride 110 mmol/L (96-108); Cholesterol 105 mg/dL (<200); Estimated Glomerular Filt Rate 57; Glucose Fasting 139 mg/dL (60-99); HDL Cholesterol 36 mg/dL (>40); LDL Cholesterol Calculated 55 mg/dL (<100); Potassium 4.2 mmol/L (3.3-5.1); Sodium 145 mmol/L (135-145); Total Protein 6.9 g/dL (6.5-8.0); Triglycerides 72 mg/dL (<150)
[2023-04-28 07:06] LABS: Thyroid Stimulating Hormone 2.27 uIU/mL (0.32-4.0)
[2023-04-28 07:41] LABS: Influenza A PCR NEGATIVE (Negative); Influenza B PCR NEGATIVE (Negative); Resp Syncy Virus RNA Qual PCR NEGATIVE (Negative); SARS COV2 PCR INHOUSE NEGATIVE (Negative)
== END 2023-04-28 06:07 | disposition home or self-care (01) ==
LOC: HO.LAB 06:06
PROVIDERS: PCP Internal Medicine; Visit Provider Internal Medicine
DX: E78.5 Hyperlipidemia, unspecified (principal); R63.4 Abnormal weight loss; R09.89 Other specified symptoms and signs involving the circulatory and respiratory systems; Z11.52 Encounter for screening for COVID-19; Z20.828 Contact with and (suspected) exposure to other viral communicable diseases
CPT/HCPCS: 0241U; 36415; 80053; 80061; 84443; 85025

== ENCOUNTER 2023-05-11 06:08 | Outpatient (REF) | payer MEDICARE, SELFPAY ==
[2023-05-11 08:01] LABS: Potassium 4.1 mmol/L (3.3-5.1)
[2023-05-11 08:26] LABS: PSA,Total (Free>4and<10) 4.92 ng/mL (0.00-4.00)
[2023-05-12 11:53] LABS: Free Prostate Spec Ag 1.4 ng/mL; Percent Free Prostate Spec Ag 22 % (calc) (>25); Prostate Specific Ag Total 6.4 ng/mL (< OR = 4.0)
== END 2023-05-11 06:09 | disposition home or self-care (01) ==
LOC: HO.LAB 06:08
PROVIDERS: PCP Internal Medicine; Visit Provider Urology
DX: R97.20 Elevated prostate specific antigen [PSA] (principal); E87.5 Hyperkalemia; Z12.5 Encounter for screening for malignant neoplasm of prostate
CPT/HCPCS: 36415; 84132; 84153; 84154

== ENCOUNTER 2023-05-22 07:34 | Outpatient (REF) | payer MEDICARE, SELFPAY ==
[2023-05-22 08:18] LABS: Estimated Average Glucose 100 mg/dL; Hemoglobin A1c % 5.1 % (<6.0)
[2023-05-22 08:40] LABS: Alanine Aminotransferase 18 U/L (0-40); Albumin Level 4.3 g/dL (3.5-5.0); Alkaline Phosphatase 50 U/L (39-117); Anion Gap 12 (12-20); Aspartate Amino Transferase 17 U/L (5-37); Bilirubin Total 0.4 mg/dL (0.0-1.0); Blood Urea Nitrogen 10 mg/dL (9-16); Calcium 9.9 mg/dL (8.4-10.2); Carbon Dioxide 28 mmol/L (22-29); Chloride 109 mmol/L (96-108); Cholesterol 93 mg/dL (<200); Estimated Glomerular Filt Rate 51; Glucose Fasting 124 mg/dL (60-99); HDL Cholesterol 33 mg/dL (>40); LDL Cholesterol Calculated 47 mg/dL (<100); Potassium 4.3 mmol/L (3.3-5.1); Sodium 145 mmol/L (135-145); Total Protein 6.9 g/dL (6.5-8.0); Triglycerides 65 mg/dL (<150)
== END 2023-05-22 07:35 | disposition home or self-care (01) ==
LOC: HO.LAB 07:34
PROVIDERS: Physician Assistant; PCP Internal Medicine; Visit Provider Internal Medicine
DX: E11.22 Type 2 diabetes mellitus with diabetic chronic kidney disease (principal); I12.9 Hypertensive chronic kidney disease with stage 1 through stage 4 chronic kidney disease, or unspecified chronic kidney disease; E78.5 Hyperlipidemia, unspecified; R63.4 Abnormal weight loss; N18.30 Chronic kidney disease, stage 3 unspecified
CPT/HCPCS: 36415; 80053; 80061; 83036

== ENCOUNTER 2023-05-29 13:02 | Outpatient (AMB) | payer MEDICARE, SELFPAY ==
--- NOTE | 2023-05-29 13:24 | A.OFFVIS_ITS ---
Intake Intake Visit Reasons: 1m/PSA(set) Intake Note: Patient presents today for a telehealth follow up on PSA Meds- Tadalafil Allergies to Antibiotic- No Known Allergies Blood Thinner- None [employer] Required: No Allergies No Known Allergies Allergy (Verified 05/29/23 13:26) Medication List - Last Reconciled 05/29/23 by Vinayak Kwong MD amlodipine 5 mg PO DAILY 90 days blood sugar diagnostic (FreeStyle Lite Strips) USE 1 TEST STRIP ONCE DAILY blood sugar diagnostic (OneTouch Ultra Test strips) Use 1 test strip once a day blood-glucose meter (FreeStyle [place] kit) As directed blood-glucose meter (OneTouch Ultra2 Meter) As directed gabapentin 1,600 mg PO BEDTIME hydroxyzine HCl 25 mg PO BEDTIME hydroxyzine HCl 25 mg PO Q8H PRN 30 days lancets (OneTouch UltraSoft 2 Lancet) Use 1 lancet once a day lancets (FreeStyle Lancets) Use 1 lancet once a day lisinopril 10 mg PO BEDTIME loratadine 10 mg PO DAILY prednisone 10 mg PO DIRECTED 8 days rosuvastatin 40 mg PO BEDTIME tadalafil 10 mg PO DAILY 90 days tadalafil 20 mg PO ONCE PRN 30 days HPI HPI Comments History of Present Illness Details Blas is a pleasant male. He is a patient of Dr. Carter. He is seen for the following urologic conditions - progressive erectile dysfunction PSA fell 6.1 to 4.9 Response to tadalafil starting to decline Try increasing to 10 mg daily He had experimented with taking 40 mg on demand Erectile dysfunction background diabetes Progressive diabetic - HbA1c 6.1 Symptoms progressive Able to obtain but cannot maintain erection Previously used sildenafil 50 mg Current medication 5 mg daily tadalafil, 20 mg on Atherosclerotic Cardiovascular Risk Assessment Dyslipidemia - treatment with high-intensity statins rosuvastatin 40 mg daily Diabetes - management with low-carbohydrate diet, prior metformin - HBA1c 11/28 5.8 Hypertension - lisinopril [facility] Medical History Erectile dysfunction associated with type 2 diabetes mellitus Erectile dysfunction CKD (chronic kidney disease) stage 3, GFR 30-59 ml/min Lumbar spondylosis Microalbuminuria Erectile dysfunction CKD (chronic kidney disease) Dyslipidemia Essential hypertension Diabetes mellitus Smoker Right shoulder pain Lumbar radiculopathy Cervical radiculopathy History of heroin abuse Thoracic back pain Cervical pain Pain in right hand Pain in right knee Pain in right shoulder Surgical History Hx of neck surgery History of shoulder surgery History of hydrocelectomy Hx of cholecystectomy H/O shoulder surgery History of knee surgery H/O hand surgery Family History Father Esophageal cancer Mother Diabetes Hypertension Dementia Social History Household Members: Family Household Members Other:: lives w ex-, daughter & son lives upstairs Housing: House Do you presently have visiting nurse or other home services: No Alcohol intake: former Patient Tobacco Use Status: Current everyday Tobacco user Tobacco use type: Cigarette Cigarette Packs Per Day: 0.5 Cigarettes Per Day: 10 e-Cigarette/Vaping Use: Never Used Second Hand Smoke Exposure: Yes service: No Current occupational status: disabled 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 Cognitive needs: No Hearing needs: No Vision needs: Yes (glasses) Review of Systems Const All systems reviewed & are unremarkable except as noted in HPI and below Reports no additional complaints Resp Reports no additional complaints GI Reports no additional complaints Reports as per HPI Musc Reports no additional complaints Physical Exam Telemedicine evaluation Appropriate responses Regular breathing rate and rhythm HEENT Head: Yes normal to inspection Ears: hearing grossly normal bilaterally Eyes General: appearance normal, both eyes and all related structures Neck Neck: Yes normal visual inspection Chest Chest palpation & inspection: normal inspection of the chest Resp Effort & Inspection: normal respiratory effort and able to speak in complete sentences Assessment & Plan Assessment & Plan (1) Erectile dysfunction: Code(s): N52.9 - Male erectile dysfunction, unspecified Plan Six-month follow-up office Medications: Refilled tadalafil [id number] [facility] [id number] Member [id number] 10 mg PO DAILY 90 tabs 1RF sexual activity 90 days N48.6 - Induration penis plastica, N52.2 - Drug-induced erectile dysfunction Patient Instructions: Imaging studies, laboratory and physical exam results were discussed and reviewed in detail. No major barriers to patient understanding were identified. An opportunity to ask questions regarding the treatment plan was provided. All questions were answered. The patient expressed understanding and agreement with the above treatment plan. The patient is aware they should contact our office by phone for worsening of their current condition or the appearance of new urologic symptoms. Compliance is encouraged with any medications and followup testing that is ordered. It is a privilege to participate in the urologic care of your patient. If you have any questions or concerns regarding treatment for the above conditions, or other urologic issues, please do not hesitate to contact me. The office telephone contact is [phone]. This note is constructed using voice recognition software. While every effort has been made to ensure accuracy laborer yard errors may have been included. Yours sincerely, Dr Vinayak Kwong MD, [facility] - Urology Providers of Expert, Compassionate Care for the Genitourinary System Telehealth Telehealth Location of provider rendering services: practice address Location of patient: address on file Patient Identification confirmed using: Name, : Yes Telehealth method: video Patient verbally consented to treatment: Yes Patient verbally consented to billing insurance company: Yes Patient informed of any privacy concerns related to visit: Yes Coding Level of Care Code Tele Est Pt Level 3 (82782) Diagnoses Erectile dysfunction N52.9
== END 2023-05-29 13:46 | disposition home or self-care (01) ==
LOC: HO.HUSH 13:02
PROVIDERS: PCP Internal Medicine; Visit Provider Urology
DX: N52.9 Male erectile dysfunction, unspecified (principal)
CPT/HCPCS: 99213

== ENCOUNTER → 2023-05-29 13:02 | Outpatient (BNVA) | payer MEDICARE, SELFPAY | PROVIDERS: PCP Internal Medicine; Visit Provider Urology ==

== ENCOUNTER 2023-06-16 10:57 | Emergency (ER) | payer MEDICARE, SELFPAY ==
--- NOTE | ~2023-06-16 | US_ITS ---
EXAMINATION: Ultrasound right kidney CLINICAL INFORMATION: Right flank pain COMPARISON: Previous MRI March 2019 and ultrasound in of the kidneys and CT of the abdomen February 2019 TECHNIQUE: Grayscale and color imaging of the right kidney FINDINGS: The right kidney is normal in contour and size and measures 11.8 x 7 x 6 cm in dimension. There are multiple simple right renal cysts, largest measuring 3.3 x 2.2 x 2.2 cm. There is a complex partially solid partially cystic lesion in the midpole of the right kidney measuring 3.5 x 3.2 x 3.6 cm. This measured 3.4 x 2.8 x 3.1 cm on February 2019 ultrasound and is minimally increased in size. This is similar-appearing to prior ultrasound. No correlate finding was seen on prior CT or MRI. Repeat renal mass imaging either with CT or MRI with and without contrast recommended. No hydronephrosis. No stone. US/US renal RT IMPRESSION: Multiple right renal cysts. 3.5 x 3.2 x 3.6 cm complex partially solid partially cystic lesion in the anterior midpole of the right kidney similar-appearing but minimally increased in size from previous ultrasound February 2019. Repeat renal mass imaging either with CT or MRI with and without contrast recommended.
--- NOTE | ~2023-06-16 | XR_ITS ---
EXAMINATION: XR CHEST CLINICAL INFORMATION: Pain of right lower posterior rib. COMPARISON: 02/25/2023 TECHNIQUE: 2 views of the chest were obtained. FINDINGS: Lungs are chronically hyperinflated. No acute abnormalities. No evidence of interstitial disease, consolidation or pleural effusion. There is a small, thin linear opacity of minimal scarring or atelectasis at the left lateral base. Cardiac silhouette has normal size and contour. The pulmonary vascular pattern is normal. Mild spondylosis of the thoracic spine. The visualized ribs have an intact appearance. No rib fractures are seen on these standard views of the chest. XR/XR chest 2V IMPRESSION: * No acute pulmonary disease. * Lungs are chronically hyperinflated. Query if there is any history of obstructive pulmonary disease.
[2023-06-16 11:21] VITALS: BP 138/87; PULSE 80; RESP 18; TEMP 36.9; O2SAT 98; BMI 23.1
--- NOTE | 2023-06-16 11:21 | ED.GENADULT ---
HPI - General Adult General Chief complaint: Back Pain/Injury Stated complaint: l side pain hurts when breath Time Seen by Provider: 06/16/23 13:32 Source: patient Mode of arrival: ambulatory Limitations: no limitations History of Present Illness HPI narrative: 62 yo male with history of CKD, renal cysts, chronic back pain, history of heroin abuse, DM, HLD who presents to the ER for evaluation of right middle back pain for the last 3 weeks. He states when he moves the wrong way his back pain stops him and he seizes up. He thinks his kidney cysts are getting worse. He has a kidney specialist. He denies any hematuria, dysuria, abdominal pain, N/V/D. He reports the pain is also worse with deep breaths and coughing. No chest pain, leg swelling. Denies known injury or trauma. MD complaint: right middle back/flank pain Onset (ago): week(s) Location: back Radiation: back Severity: severe Quality: stabbing and aching Pain Consistency: intermittent Relieving factors: rest Exacerbating factors: movement Associated symptoms: denies other symptoms Treatments prior to arrival: other (gabapentin 800mg) Related Data Home Medications ?Medication ?Instructions ?Recorded ?Confirmed gabapentin 800 mg tablet 1,600 mg PO BEDTIME 02/25/23 05/29/23 hydroxyzine HCl 25 mg tablet 25 mg PO BEDTIME 02/25/23 05/29/23 lisinopril 5 mg tablet 10 mg PO BEDTIME 02/25/23 05/29/23 rosuvastatin 40 mg tablet 40 mg PO BEDTIME 02/25/23 05/29/23 Previous Rx's ?Medication ?Instructions ?Recorded blood-glucose meter (FreeStyle #1 ea 03/20/20 [place] kit) lancets 28 gauge (FreeStyle #100 ea 05/23/22 Lancets) tadalafil 20 mg tablet 20 mg PO ONCE PRN sexual activity 09/11/22 30 days #30 tabs blood sugar diagnostic (FreeStyle #50 strips 09/25/22 Lite Strips) blood sugar diagnostic (OneTouch #100 ea 09/28/22 Ultra Test strips) blood-glucose meter (OneTouch #1 ea 09/28/22 Ultra2 Meter) lancets 30 gauge (OneTouch #100 ea 09/28/22 UltraSoft 2 Lancet) amlodipine 5 mg tablet 5 mg PO DAILY 90 days #90 tabs 03/16/23 loratadine 10 mg tablet 10 mg PO DAILY #30 tabs 03/18/23 prednisone 10 mg tablet 10 mg PO DIRECTED 8 days #20 04/27/23 tabs tadalafil 10 mg tablet 10 mg PO DAILY sexual activity 90 05/29/23 days #90 tabs hydroxyzine HCl 25 mg tablet 25 mg PO Q8H PRN for itch 30 days 06/14/23 #90 tabs Allergies Allergy/AdvReac Type Severity Reaction Status Date / Time No Known Allergies Allergy Verified 06/16/23 11:23 Review of Systems Review of Systems: Yes all other systems are reviewed and are negative FOR[facility] Past Medical History Medical History Erectile dysfunction associated with type 2 diabetes mellitus Erectile dysfunction CKD (chronic kidney disease) stage 3, GFR 30-59 ml/min Lumbar spondylosis Microalbuminuria Erectile dysfunction CKD (chronic kidney disease) Dyslipidemia Essential hypertension Diabetes mellitus Smoker Right shoulder pain Lumbar radiculopathy Cervical radiculopathy History of heroin abuse Thoracic back pain Cervical pain Pain in right hand Pain in right knee Pain in right shoulder Surgical History Hx of neck surgery History of shoulder surgery History of hydrocelectomy Hx of cholecystectomy H/O shoulder surgery History of knee surgery H/O hand surgery Family History Family History Father Esophageal cancer Mother Diabetes Hypertension Dementia Social History Social History Household Members: Family Household Members Other:: lives w ex-, daughter & son lives upstairs Housing: House Do you presently have visiting nurse or other home services: No Alcohol intake: former Patient Tobacco Use Status: Current everyday Tobacco user Tobacco use type: Cigarette Cigarette Packs Per Day: 0.5 Cigarettes Per Day: 10 e-Cigarette/Vaping Use: Never Used Second Hand Smoke Exposure: Yes Use of substances other than those prescribed or required for medical reasons: No Advance Directives: No Advance Directives Information Provided: Yes service: No Current occupational status: disabled 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 Oriented X3. No acute distress. Head: normocephalic, atraumatic. Eyes: Pupils equal, round and reactive to light. ENT: Pharynx normal. No tonsillar swelling or exudate. Neck: Normal inspection. Neck supple. CVS: Normal heart rate and rhythm. Pulses normal. Respiratory: No respiratory distress. Breath sounds coarse at the bilateral bases Abdomen: Soft and nontender. +BS x4 +CVA tenderness on the right Back: tenderness of the middle thoracic area with soft tissue spasm of the paraspinous muscles, pain with rotation. Skin: Skin warm and dry. Normal skin color. Normal skin turgor. No rashes. Extremities: No lower extremity edema. No joint swelling. no calf tenderness Neuro/psych: Oriented X 3. No motor deficit. No sensory deficit. CN II-XII intact. Normal speech and cognition. Course Course Course Narrative: RME:?62 yo male hx of CKD, DM, HTN, HDL, current cigarette smoker here for posterior right lower rib pain, worse with deep inspiration. Denies trauma/ injury. Denies recent travel or long car rides. Additionally reports skin rash that began on his fore head, now spreading down both legs. Saw PCP for this and has an appointment with derm on 06/30. Denies known insect or tick bites. Denies fever, pruritis, chest pain, SOB, dyspnea, dysuria, hematuria, saddle anesthesia, bowel/bladder incont or retention. labs, UA, CXR ordered Full HPI, ROS and PE to be performed by the primary ED provider. Medical Decision Making Medical Decision Making MDM Narrative: 62 yo male with multiple medical problems presenting with right middle back/flank pain x3 weeks. +CVA tenderness on exam. VS are stable. he has pain w/ deep breaths but also w/ movement and palpation, doubt PE or PNA. CXR reviewed, no PNA. Renal U/S showing known kidney cysts, one slightly larger. no hydro or stones. UA pending but patient does not want to wait to see the results. He would like to go home. he is on high dose gabapentin at home. hx substance abuse. will avoid narcotic rx today. encouraged motrin/tylenol and follow up with PCP. return precaution discussed. stable for d/c home Differential Diagnosis Differential Diagnoses: The differential diagnosis associated with the presentation includes MSK pain, muscle spasm, PNA, PE, pleurisy, UTI, nephrolithiasis, kidney cyst rupture Admission/Observation Consideration of admission/observation: Escalation of care including admission/observation considered Lab Data MDM Lab Attestation statement: I reviewed the patient's lab results. 06/16/23 11:49 06/16/23 11:49 Labs: Lab Results 06/16/23 Range/Units 11:49 WBC 9.2 (4.8-10.8) X10*3/uL RBC 4.55 L (4.60-5.80) X10*6/uL Hgb 14.4 (14.0-18.0) g/dl Hct 40.7 L (42.0-52.0) % MCV 89.5 (80.0-98.0) fL MCH 31.6 (27.0-33.0) pg MCHC 35.4 (31.0-36.0) g/dl RDW 12.6 (11.0-16.0) % Plt Count 219 (160-400) X10*3/uL MPV 10.5 (9.4-12.4) fL Immature Gran % (Auto) 0.2 (0.0-0.4) % Neut % (Auto) 70.9 (45-73) % Lymph % (Auto) 22.7 (20-40) % [place] % (Auto) 5.3 (2-11) % Eos % (Auto) 0.4 (0-4) % Baso % (Auto) 0.5 (0-2) % Lymph # (Auto) 2.1 (1.2-4.9) X10*3/uL [place] # (Auto) 0.5 (0.1-1.2) X10*3/uL Eos # (Auto) 0.0 (0.0-0.4) X10*3/uL Baso # (Auto) 0.1 (0.0-0.2) X10*3/uL Abs Immat Gran (auto) 0.02 (0.00-0.03) X10*3/uL Absolute Neuts (auto) 6.5 (2.0-8.3) x10*3/uL Absolute Nucleated RBC 0.000 (0.0-0.012) X10*3/uL Nucleated RBC % (auto) 0.0 (0.0-0.2) /100WBC PT 12.1 (11.1-13.3) SEC INR 1.0 (0.9-1.1) Sodium 143 (135-145) mmol/L Potassium 3.9 (3.3-5.1) mmol/L Chloride 111 H (96-108) mmol/L Carbon Dioxide 25 (22-29) mmol/L Anion Gap 11 L (12-20) BUN 11 (9-16) mg/dL Creatinine 1.21 (0.5-1.4) mg/dL Estim Creat Clear Calc 67.2 Estimated GFR > 60 Random Glucose 100 (60-115) mg/dL Calcium 9.7 (8.4-10.2) mg/dL Magnesium 2.1 (1.6-2.6) mg/dL Total Bilirubin 0.5 (0.0-1.0) mg/dL AST 15 (5-37) U/L ALT 17 (0-40) U/L Alkaline Phosphatase 48 (39-117) U/L Total Protein 7.0 (6.5-8.0) g/dL Albumin 4.5 (3.5-5.0) g/dL Lipase 54 (8-78) U/L Independent Interpretation I performed an independent interpretation of an: Plain X-Ray and Ultrasound Interpretation: cysts seen in the kidney, no hydronephrosis xr without PNA Radiology Impression Discussion of test interpretation with radiology: I have reviewed the radiologist's reading. Radiologist Impression: US/US renal RT IMPRESSION: Multiple right renal cysts. 3.5 x 3.2 x 3.6 cm complex partially solid partially cystic lesion in the anterior midpole of the right kidney similar-appearing but minimally increased in size from previous ultrasound February 2019. XR/XR chest 2V IMPRESSION: * No acute pulmonary disease. * Lungs are chronically hyperinflated. Query if there is any history of obstructive pulmonary disease. External Record Review External record reviewed: Office record, Outpatient record and Prior outpatient labs Prescription Management I considered prescription management with: Pain Medication Chronic Conditions Patient?s care impacted by: Other (CKD) Critical Care Time Critical Care Time Critical Care Time: No Discharge Plan Discharge Clinical Impression: Thoracic back pain Patient Disposition: Home, Self-Care Instructions: Back Pain (ED) Additional Instructions: Recommend motrin and tylenol as needed for pain Use ice or heat to the area as needed for pain Follow up with your kidney specialist and your primary care doctor US/US renal RT IMPRESSION: Multiple right renal cysts. 3.5 x 3.2 x 3.6 cm complex partially solid partially cystic lesion in the anterior midpole of the right kidney similar-appearing but minimally increased in size from previous ultrasound February 2019. Prescriptions: No Action (DME) lancets [FreeStyle Lancets] 28 gauge misc See Rx Instructions .ROUTE .MEDSUPPLY Qty: 100 11RF Rx Instructions: Use 1 lancet once a day tadalafil 20 mg tablet 20 mg PO ONCE PRN (Reason: sexual activity) 30 Days Qty: 30 5RF Rx Instructions: On demand medication take 60 minutes before intended activity (DME) blood-glucose meter [OneTouch Ultra2 Meter] Misc See Rx Instructions .Route Qty: 1 0RF Rx Instructions: As directed (DME) OneTouch Ultra Test Strip See Rx Instructions .Route Qty: 100 3RF Rx Instructions: Use 1 test strip once a day (DME) lancets [OneTouch UltraSoft 2 Lancet] 30 gauge misc See Rx Instructions .Route Qty: 100 3RF Rx Instructions: Use 1 lancet once a day amlodipine 5 mg tablet 5 mg PO DAILY 90 Days Qty: 90 1RF hydroxyzine HCl 25 mg tablet 25 mg PO Q8H PRN (Reason: for itch) 30 Days Qty: 90 0RF gabapentin 800 mg tablet 1,600 mg PO BEDTIME hydroxyzine HCl 25 mg tablet 25 mg PO BEDTIME lisinopril 5 mg tablet 10 mg PO BEDTIME Hold Instructions: Resume on 04/09/23. hold until seen by PCP rosuvastatin 40 mg tablet 40 mg PO BEDTIME (DME) blood-glucose meter [FreeStyle [place]] Kit See Rx Instructions .ROUTE .MEDSUPPLY Qty: 1 0RF Rx Instructions: As directed (DME) FreeStyle Lite Strips Strip See Rx Instructions .ROUTE .COMPLEX Qty: 50 11RF Dose Instruction: USE 1 TEST STRIP ONCE DAILY Rx Instructions: USE 1 TEST STRIP ONCE DAILY loratadine 10 mg tablet 10 mg PO DAILY Qty: 30 0RF prednisone 10 mg tablet 10 mg PO DIRECTED 8 Days Qty: 20 0RF Rx Instructions: Take 4 tabs for 2 days, then 3 tabs for 2 days, then 2 tabs for 2 days, then 1 tab for 2 days tadalafil 10 mg tablet 10 mg PO DAILY 90 Days Qty: 90 1RF Rx Instructions: [id number] [facility] [place] [id number] Member [id number] Interventions: ED Discharge Assessment Last Done: 06/16/23 16:33 Discharge Date/Time: 06/16/23 16:30 Print Language: Czech
[2023-06-16 11:54] LABS: MANUAL DIFF FLAG NO
[2023-06-16 11:55] LABS: Basophils Absolute Auto 0.1 X10*3/uL (0.0-0.2); Basophils Percent Auto 0.5 % (0-2); Eosinophils Percent Auto 0.4 % (0-4); Hematocrit 40.7 % (42.0-52.0); Hemoglobin 14.4 g/dl (14.0-18.0); Imm Gran Abs Auto 0.02 X10*3/uL (0.00-0.03); Imm Gran Pct Auto 0.2 % (0.0-0.4); Lymphocytes Absolute Auto 2.1 X10*3/uL (1.2-4.9); Lymphocytes Percent Auto 22.7 % (20-40); Mean Corpuscular HGB Conc 35.4 g/dl (31.0-36.0); Mean Corpuscular Hemoglobin 31.6 pg (27.0-33.0); Mean Corpuscular Volume 89.5 fL (80.0-98.0); Mean Platelet Volume 10.5 fL (9.4-12.4); Monocytes Absolute Auto 0.5 X10*3/uL (0.1-1.2); Monocytes Percent Auto 5.3 % (2-11); Neutrophils Absolute Auto 6.5 x10*3/uL (2.0-8.3); Neutrophils Percent Auto 70.9 % (45-73); Platelet Count 219 X10*3/uL (160-400); Red Blood Count 4.55 X10*6/uL (4.60-5.80); Red Cell Distribution Width 12.6 % (11.0-16.0); White Blood Count 9.2 X10*3/uL (4.8-10.8)
[2023-06-16 12:07] LABS: Prothrombin Time 12.1 SEC (11.1-13.3)
[2023-06-16 12:28] LABS: Alanine Aminotransferase 17 U/L (0-40); Albumin Level 4.5 g/dL (3.5-5.0); Alkaline Phosphatase 48 U/L (39-117); Anion Gap 11 (12-20); Aspartate Amino Transferase 15 U/L (5-37); Bilirubin Total 0.5 mg/dL (0.0-1.0); Blood Urea Nitrogen 11 mg/dL (9-16); Calcium 9.7 mg/dL (8.4-10.2); Carbon Dioxide 25 mmol/L (22-29); Chloride 111 mmol/L (96-108); Creatinine Clr Calc Pharmacy 67.2; Estimated Glomerular Filt Rate > 60; Glucose Random 100 mg/dL (60-115); Lipase 54 U/L (8-78); Magnesium 2.1 mg/dL (1.6-2.6); Potassium 3.9 mmol/L (3.3-5.1); Sodium 143 mmol/L (135-145)
[2023-06-16 16:33] VITALS: BP 138/87; PULSE 80; RESP 18; TEMP 36.9; O2SAT 98
== END 2023-06-16 16:30 | disposition home or self-care (01) ==
PROVIDERS: Physician Assistant Medical; Emergency Provider Emergency Medicine; PCP Internal Medicine
DX: M54.6 Pain in thoracic spine (principal); I12.9 Hypertensive chronic kidney disease with stage 1 through stage 4 chronic kidney disease, or unspecified chronic kidney disease; E11.22 Type 2 diabetes mellitus with diabetic chronic kidney disease; N18.30 Chronic kidney disease, stage 3 unspecified; F11.10 Opioid abuse, uncomplicated; R21 Rash and other nonspecific skin eruption; Z79.4 Long term (current) use of insulin
CPT/HCPCS: 36415; 71046; 76775; 80053; 83690; 83735; 85025; 85610; 99284

== ENCOUNTER 2024-03-17 09:10 | Outpatient (AMB) | payer MEDICARE, MEDICAID, SELFPAY ==
--- NOTE | 2024-03-17 09:11 | MHC.PC.OV ---
Vital Signs 03/17/24 09:13 Height 6 ft Weight 160 lb 8 oz BMI 21.8 BP 150/90 H Blood Pressure Location Lt brachial Position Sitting Pulse 84 Pulse Source Pulse Oximeter Pulse Oximetry (%) 99 Oxygen Delivery Method Room Air Intake Visit Reasons: stuffy nose, cant taste neg for Covid Intake Note: Patient is here to follow up on stuffy nose, cough, cold chills with sweaty hands and feet, diarrhea, can't taste, neg home covid. OTC with little relief. Technical System Analyst Required: No Building Dismantler: Not Required per policy Accompanied by: Self / Same As Patient Allergies No Known Allergies Allergy (Verified 03/17/24 10:07) Medication List - Last Reconciled 03/17/24 by True Cortez MD amlodipine 5 mg PO DAILY 90 days blood sugar diagnostic (FreeStyle Lite Strips) USE 1 TEST STRIP ONCE DAILY blood sugar diagnostic (OneTouch Ultra Test strips) Use 1 test strip once a day blood-glucose meter (FreeStyle [place] kit) As directed blood-glucose meter (OneTouch Ultra2 Meter) As directed gabapentin 1,600 mg PO BEDTIME hydroxyzine HCl 25 mg PO BEDTIME hydroxyzine HCl 25 mg PO Q8H PRN 30 days lancets (OneTouch UltraSoft 2 Lancet) Use 1 lancet once a day lancets (FreeStyle Lancets) Use 1 lancet once a day lisinopril 10 mg PO BEDTIME loratadine 10 mg PO DAILY prednisone 10 mg PO DIRECTED 8 days rosuvastatin 40 mg PO BEDTIME 90 days tadalafil 10 mg PO DAILY 90 days tadalafil 20 mg PO ONCE PRN 30 days Tobacco use date assessed: 03/17/24 Fall risk assessment: No Falls in past year Last assessed Fall Risk: 03/17/24 Dental Screening Dental Screen Date: 03/17/24 Did you have a dental visit in the last 12 months?: Yes Did you have a dental problem in the last 6 months where you did not have access to dental care?: No Was dental information given to patient?: Patient has dentist HPI stuffy nose, cant taste neg for Covid HPI Details Patient presents for a sick visit. Reporting symptoms of sinus congestion, sore throat and difficulty swallowing. Low-grade fever. No family member is sick. No recent travel. Patient reports symptoms of malaise and fatigue. [facility] Medical History Erectile dysfunction associated with type 2 diabetes mellitus Erectile dysfunction CKD (chronic kidney disease) stage 3, GFR 30-59 ml/min Lumbar spondylosis Microalbuminuria Erectile dysfunction CKD (chronic kidney disease) Dyslipidemia Essential hypertension Diabetes mellitus Smoker Right shoulder pain Lumbar radiculopathy Cervical radiculopathy History of heroin abuse Thoracic back pain Cervical pain Pain in right hand Pain in right knee Pain in right shoulder Surgical History Hx of neck surgery History of shoulder surgery History of hydrocelectomy Hx of cholecystectomy H/O shoulder surgery History of knee surgery H/O hand surgery Family History Father Esophageal cancer Mother Diabetes Hypertension Dementia Social History Household Members: Family Household Members Other:: lives w ex-, daughter & son lives upstairs Housing: House Do you presently have visiting nurse or other home services: No Alcohol intake: former Patient Tobacco Use Status: Current everyday Tobacco user Tobacco use type: Cigarette Cigarette Packs Per Day: 0.5 Cigarettes Per Day: 10 e-Cigarette/Vaping Use: Never Used Second Hand Smoke Exposure: Yes service: No Current occupational status: disabled 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 1. Little interest or pleasure in doing things: not at all 2. Feeling down, depressed, or hopeless: nearly every day (currently on medication) 3. Trouble falling or staying asleep, or sleeping too much: not at all 4. Feeling tired or having little energy: not at all 5. Poor appetite or overeating: not at all 6. Feeling bad about yourself - or that you are a failure or have let yourself or your family down: not at all 7. Trouble concentrating on things, such as reading the newspaper or watching television: not at all 8. Moving or speaking so slowly that other people could have noticed. Or the opposite - being so fidgety or restless that you have been moving around a lot more than usual: not at all 9. Thoughts that you would be better off or of hurting yourself in some way: not at all Total score: 3 Depression Screening Interpretation: Negative Depression Screening Done: Yes Source: Developed by Drs. Levi Palomares, Hannah Richard, Daniel Hicks and colleagues, with an educational evelyne from [employer]. Thrive Questionnaire Date Thrive assessed: 03/17/24 I am a: Patient What is your living situation today?: I have a steady place to live Within the past 12 months, did the food you bought not last and you didn't have the money to get more?: Never true Within the past 12 months, did you worry whether your food would run out before you got money to buy more?: Never true Do you have trouble paying for medicines?: No Do you have trouble getting transportation to medical appointments?: No Do you have trouble paying your heating and electricity bill?: No Do you have trouble taking care of your child, family member or friend?: No Do you have trouble with day-to-day activities such as bathing, preparing meals, shopping, managing finances, etc.?: No Are you currently unemployed and looking for a job?: No Are you interested in more education?: No Please select the resources that you would like help with: None Currently or been in a relationship where the following occur: No concerns reported THRIVE Score: 0 AUDIT C Alcohol Use Questionnaire (AUDIT-C) 1. How often do you have a drink containing alcohol?: Never Total Score: 0 ARTURO-7 AMB Questionnaire ARTURO-7 Date ARTURO - 7 assessed: 03/17/24 Feeling nervous, anxious, or on edge: 3 = Nearly every day (currently on medication) Not being able to stop or control worryin = Not at all Worrying too much about different things: 0 = Not at all Trouble relaxin = Not at all Being so restless that it is hard to sit still: 0 = Not at all Becoming easily annoyed or irritable: 0 = Not at all Feeling afraid as if something awful might happen: 0 = Not at all Total ARTURO-7 score (0-4 normal; 5-9 mild; 10-14 moderate; 15-21 severe): 3 Source: Developed by Drs. Levi Palomares, Hannah Richard, Daniel Hicks and colleagues, with an educational evelyne from [employer]. Physical exam (Primary Care) Vital Signs: Last Vital Signs Pulse 84 03/17/24 09:13 BP 150/90 H 03/17/24 09:13 Pulse Ox 99 03/17/24 09:13 Oxygen Delivery Method Room Air 03/17/24 09:13 BMI result Body Mass Index 21.8 Tobacco/Smoking Status: Tobacco use Status Tobacco use date assessed 03/17/24 03/17/24 09:19 Patient Tobacco Use Status Current everyday Tobacco 03/17/24 09:19 Tobacco use type Cigarette 03/17/24 09:19 e-Cigarette/Vaping Use Never Used 03/17/24 09:19 PHQ-9: PHQ-9 Score PHQ-9: Total score 3 03/17/24 09:19 Depression Screening Interpretation: Negative Thrive Assessment: Date of Thrive Assessment Date Thrive assessed 03/17/24 03/17/24 09:19 Currently or been in a relationship where the following occur: No concerns reported Const General: cooperative and healthy appearing Nutritional Appearance: well nourished Orientation/consciousness: patient oriented x3 Limitations: no limitations HENMT Head: Yes normal to inspection Eyes General: appearance normal, both eyes and all related structures Neck Neck: Yes normal visual inspection Chest Chest palpation & inspection: normal palpation of entire chest wall Resp Effort & Inspection: normal respiratory effort Neuro General: patient oriented x3 Coding Level of Care Code Est Pt Level 3 (55272) Complex EM visit Add On G2211 Diagnoses Upper respiratory tract infection J06.9 Assessment & Plan Assessment & Plan (1) Upper respiratory tract infection: Code(s): J06.9 - Acute upper respiratory infection, unspecified Plan: Antibiotics ordered. Increase fluid intake. Tylenol for aches and pains. If symptoms worsen, follow-up here for a recheck.
[2024-03-17 09:13] VITALS: BP 150/90; PULSE 84; O2SAT 99; BMI 21.8
== END 2024-03-17 10:34 | disposition home or self-care (01) ==
PROVIDERS: PCP Internal Medicine; Visit Provider Internal Medicine
DX: J06.9 Acute upper respiratory infection, unspecified (principal)

== ENCOUNTER → 2024-03-17 09:10 | Outpatient (BNVA) | payer MEDICARE, MEDICAID, SELFPAY | PROVIDERS: PCP Internal Medicine; Visit Provider Internal Medicine | DX: J06.9 Acute upper respiratory infection, unspecified (principal) | CPT/HCPCS: 96127; 99212 ==

== ENCOUNTER 2024-04-19 11:57 | Outpatient (AMB) | payer MEDICARE, MEDICAID, SELFPAY ==
--- NOTE | 2024-04-19 12:25 | A.OFFVIS_ITS ---
Intake Vital Signs 04/19/24 12:27 Height 6 ft Weight 162 lb BMI 22.0 BP 150/92 H Blood Pressure Location Lt brachial Position Sitting Intake Visit Reasons: annual exam Intake Note: Patient here for annual wellness exam Extrusion Line Operator Required: No Accompanied by: Self / Same As Patient Allergies No Known Allergies Allergy (Verified 04/19/24 12:36) Medication List - Last Reconciled 04/19/24 by Opal Carter MD blood sugar diagnostic (FreeStyle Lite Strips) USE 1 TEST STRIP ONCE DAILY blood sugar diagnostic (OneTouch Ultra Test strips) Use 1 test strip once a day blood-glucose meter (FreeStyle [place] kit) As directed blood-glucose meter (OneTouch Ultra2 Meter) As directed gabapentin 1,600 mg PO BEDTIME hydroxyzine HCl 25 mg PO BEDTIME hydroxyzine HCl 25 mg PO Q8H PRN 30 days lancets (OneTouch UltraSoft 2 Lancet) Use 1 lancet once a day lancets (FreeStyle Lancets) Use 1 lancet once a day HPI HPI Comments History of Present Illness Details The patient is a 63-year-old male presenting with a Medicare Annual Wellness Exam. He has a history of essential hypertension, which was noted to be slightly elevated during this visit, possibly influenced by anxiety in medical settings. The patient was previously treated with amlodipine and has also been on lisinopril. Consideration for adding losartan was discussed to manage his blood pressure. He denies allergies to medications. Current medications include gabapentin and hydroxyzine. He reports his blood sugar is in good control, checked about a month ago, and there were no significant concerns. He recalled previous medical treatments, including an encounter with another physician, Dr. Sierra, who provided antibiotics for an unknown infection. Surgical history includes procedures on the neck, shoulder, hydrocelectomy, gallbladder, shoulder, knee, and hand. Social history reveals former alcohol use but current ongoing smoking, approximately ten cigarettes per day. The patient expressed ambivalence about quitting smoking. Family history notes the presence of esophageal and vaginal cancer and dementia among his parents. There is no current formal management of mild depressive symptoms, as per the PHQ9 score indicating very mild depression. PPP handed to patient. Jena of care reviewed. Has chronic kidney disease follow by Nephrology. - Shingrix vaccine confirmed but conside ration for pneumonia vaccine rejected by the patient. - Cardiovascular risk factors discussed with potential medication adjustment for blood pressure. - No current counselor or psychiatrist i nvolved for management of mild depressive symptoms. - Bloodwork ordered every four months fo r cholesterol, sugar, kidney, and liver function monitoring. - Previous colonoscopy three to four yea rs ago was normal; follow-up needed in approximately ten more years. - Evaluated and confirmed no cognitive i mpairment after a brief memory and cognitive test. [facility] Medical History (Updated 04/19/24 @ 19:07 by Opal Carter MD) CHRIS (acute kidney injury) Erectile dysfunction associated with type 2 diabetes mellitus Erectile dysfunction CKD (chronic kidney disease) stage 3, GFR 30-59 ml/min Lumbar spondylosis Microalbuminuria Erectile dysfunction CKD (chronic kidney disease) Dyslipidemia Essential hypertension Diabetes mellitus Smoker Right shoulder pain Lumbar radiculopathy Cervical radiculopathy History of heroin abuse Thoracic back pain Cervical pain Pain in right hand Pain in right knee Pain in right shoulder Surgical History Hx of neck surgery History of shoulder surgery History of hydrocelectomy Hx of cholecystectomy H/O shoulder surgery History of knee surgery H/O hand surgery Family History Father Esophageal cancer Mother Diabetes Hypertension Dementia Social History Household Members: Family Household Members Other:: lives w ex-, daughter & son lives upstairs Housing: House Do you presently have visiting nurse or other home services: No Alcohol intake: former Patient Tobacco Use Status: Current everyday Tobacco user Tobacco use type: Cigarette Cigarette Packs Per Day: 0.5 Cigarettes Per Day: 10 e-Cigarette/Vaping Use: Never Used Second Hand Smoke Exposure: Yes service: No Current occupational status: disabled 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 Cognitive needs: No Hearing needs: No Vision needs: Yes (glasses) Questionnaire Medicare Wellness Checkup What [age] What gender do you identify with?: male During the past 4 weeks, how much have you been bothered by emotional problems such as feeling anxious, depressed, irritable, sad or downhearted, and blue?: not at all During the past 4 weeks, has your physical & emotional health limited your social activities with family, friends, neighbors, or groups?: not at all During the past 4 weeks, how much bodily pain have you generally had?: very mild pain During the past 4 weeks, was someone available to help you if you needed & wanted help?: yes, as much as I wanted During the past 4 weeks, what was the hardest physical activity you could do for at least 2 minutes?: moderate Can you get to places out of walking distance without help? (For eg., can you travel alone on buses, taxis or drive your car?): Yes Can you go shopping for groceries or clothes without someone's help?: Yes Can you prepare your own meals?: Yes Can you do your housework without help?: Yes Because of any health problems, do you need the help of another person with your personal care needs such as eating, bathing, dressing or getting around the house?: No Can you handle your own money without help?: Yes During the past 4 weeks, how would you rate your health in general?: good During the past 4 weeks how have things been going for you?: pretty well Are you having difficulties driving your car?: no Do you always fasten your seat belt when you are in a car?: yes, usually During past 4 weeks, have you been bothered by the following: never: Falling or dizzy when standing up, Sexual problems?, Trouble eating well?, Teeth or denture problems?, Problems using the telephone? and Tiredness or fatigue? Have you fallen 2 or more times in the past year?: No Are you afraid of falling?: No Are you a smoker?: yes, but I'm not ready to quit During the past 4 weeks, how many drinks of wine, beer, or other alcoholic beverages did you have?: no alcohol at all Do you exercise for about 20 minutes 3 or more times a week?: no, I usually do not exercise this much Have you been given information to help with the following?: no: Hazards in your house that might hurt you? and no: Keeping track of your medications? How often do you have trouble taking medicines the way you have been told to take them?: I always take medicine as prescribed How confident are you that you can control & manage most of your health problems?: very confident What is your race?: or origin or descent Mini Mental State Exam (MMSE) Orientation What is the (year) (season) (date) (day) (month)?: year, season, date, day and month Where are we (state) (county) (town or city) (hospital) (floor)?: state, county, town or city, hospital/clinic and floor Registration Name of 3 unrelated objects clearly and slowly, then ask patient to repeat all 3 of them. (1st repeat determines score. Make sure they can repeat all three): object 1, object 2 and object 3 Attention & Calculation (CHOOSE ONE) Spell WORLD backwards (DLROW): 0 letters Recall Ask patient to repeat the 3 items from question #3.: object 1, object 2 and object 3 Language Show patient a wristwatch & ask what it is. Repeat for pencil.: watch and pencil Ask the patient to repeat the phrase 'No ifs, ands, or buts' after you.: correct Ask the patient to 'take a piece of paper with their right hand' 'fold paper in half' 'place paper on floor': take paper in right hand, fold paper in half and place paper on floor Print the sentence 'CLOSE YOUR EYES' on a piece. If patient actually closes eyes then score.: followed written direction Ask patient to copy figure of intersecting pentagons exactly. Score if all 10 angles & 2 intersects are included.: all 10 angles present & 2 are intersected Score Score: 24 Activity of Daily Living Bathing - sponge bath, tub bath or shower: receives no assistance (gets in/out by self, if usual bathing means Dressing - getting clothes from closets & drawers, including inner/outer garments & fasteners.: gets clothes & gets completely dressed without help Toileting - going to the 'toilet room' for urine/bowel elimination & cleaning self/arranging clothes: goes to toilet room, cleans self, arranges clothes without help Transfer: moves in & out of bed and chair without help (may use support object) Continence: controls urination/bowel movements completely by self Feeding: feeds self without help Total Score: 0 Information obtained from: patient Using telephone: independent Traveling: independent Shopping: independent Preparing meals: independent Housework: independent Taking medicine: independent Managing money: independent PHQ-9 Over the last 2 weeks, how often have you been bothered by any of the following problems? 1. Little interest or pleasure in doing things: several days 2. Feeling down, depressed, or hopeless: not at all (currently on medication) 3. Trouble falling or staying asleep, or sleeping too much: several days 4. Feeling tired or having little energy: several days 5. Poor appetite or overeating: several days 6. Feeling bad about yourself - or that you are a failure or have let yourself or your family down: not at all 7. Trouble concentrating on things, such as reading the newspaper or watching television: not at all 8. Moving or speaking so slowly that other people could have noticed. Or the opposite - being so fidgety or restless that you have been moving around a lot more than usual: not at all 9. Thoughts that you would be better off or of hurting yourself in some way: not at all Total score: 4 Depression Screening Interpretation: Positive Depression Screening Follow-up: Existing condition and Follow-up Visit Requested Depression Screening Done: Yes 81961 - PHQ-9 Billing: Yes Source: Developed by Drs. Levi Palomares, Hannah Richard, Daniel Hicks and colleagues, with an educational evelyne from [employer]. Fall Risk Assessment Fall Risk Assessment Fall risk assessment: No Falls in past year AUDIT C Alcohol Use Questionnaire (AUDIT-C) 1. How often do you have a drink containing alcohol?: Never Total Score: 0 Score Reviewed/Action Taken: No ARTURO-7 AMB Questionnaire ARTURO-7 Date ARTURO - 7 assessed: 04/19/24 Feeling nervous, anxious, or on edge: 3 = Nearly every day (currently on medication) Not being able to stop or control worryin = Not at all Worrying too much about different things: 0 = Not at all Trouble relaxin = Not at all Being so restless that it is hard to sit still: 0 = Not at all Becoming easily annoyed or irritable: 0 = Not at all Feeling afraid as if something awful might happen: 0 = Not at all Total ARTURO-7 score (0-4 normal; 5-9 mild; 10-14 moderate; 15-21 severe): 3 Source: Developed by Drs. Levi Palomares, Hannah Richard, Daniel Hicks and colleagues, with an educational evelyne from [employer]. ARTURO-7 Assessment Billing ARTURO-7 Assessment Tool: ARTURO-7 Assessment 38913 Thrive Questionnaire Date Thrive assessed: 04/19/24 I am a: Patient What is your living situation today?: I have a steady place to live Within the past 12 months, did the food you bought not last and you didn't have the money to get more?: Never true Within the past 12 months, did you worry whether your food would run out before you got money to buy more?: Never true Do you have trouble paying for medicines?: No Do you have trouble getting transportation to medical appointments?: No Do you have trouble paying your heating and electricity bill?: No Do you have trouble taking care of your child, family member or friend?: No Do you have trouble with day-to-day activities such as bathing, preparing meals, shopping, managing finances, etc.?: No Are you currently unemployed and looking for a job?: No Are you interested in more education?: No Please select the resources that you would like help with: None Currently or been in a relationship where the following occur: No concerns reported THRIVE Score: 0 Review of Systems Const All systems reviewed & are unremarkable except as noted in HPI and below Card Denies chest pain at rest, Denies chest pain with activity, Denies edema, Denies irregular heart rhythm, Denies claudication, Denies dyspnea, Denies dyspnea on exertion, Denies orthopnea, Denies paroxysmal nocturnal dyspnea and Denies slow heart rate Resp Denies cough, Denies dyspnea and Denies dyspnea on exertion Physical Exam Vital Signs: Last Vital Signs BP 150/92 H 04/19/24 12:27 BMI result Body Mass Index 22.0 Resp Effort & Inspection: normal respiratory effort Auscultation: clear to auscultation bilaterally Cardio Jugular venous distension: no JVD Rate: regular rate Rhythm: regular rhythm Heart sounds: S1 normal heart sound present and S2 normal heart sound present Neuro Romberg Test: Negative Extrem General: Yes full ROM Office Procedures Flu Questionnaire Does the patient have a severe egg allergy?: No Immunizations Fluarix Triv [id number] (PF) 45 mcg (15 mcg x 3)/0.5 mL IM syringe Performing Provider: Opal Carter MD Performing Location: [facility] Documented (not given) by: FLORIN Franco on 04/19/24 12:35 Reason Not Given: Patient Refused Assessment & Plan Assessment & Plan (1) Encounter for Medicare annual wellness exam: Code(s): Z00.00 - Encounter for general adult medical examination without abnormal findings (2) CKD (chronic kidney disease) stage 3, GFR 30-59 ml/min: Comment: few kidney cysts, on right Code(s): N18.30 - Chronic kidney disease, stage 3 unspecified Plan - Blood pressure management considered with a possible addition of losartan, with recheck scheduled in three weeks. - Pneumonia vaccine discussed but declined by the patient. - Routine bloodwork planned in four months to monitor health metrics. - Monitoring of mild depressive symptoms without current psychiatric referral, optional further management with counseling if needed. Patient was informed and verbally consented to the use of an ambient scribe for clinic note documentation during this visit. I discussed with the patient the slightly elevated blood pressure readings, highlighting the impact of potential anxiety and explored the addition of losartan as a treatment option to better regulate hypertension. I reiterated the importance of maintaining control over blood pressure to prevent future complications and that reevaluation would take place in three weeks. We reviewed vaccination history, confirming administration of Shingrix and outlining the reasons for a Pneumonia vaccine, which the patient declined. Bloodwork was ordered to monitor rivera health parameters as part of a comprehensive health management plan. I provided feedback on the mental health assessment, noting the mild depressive score from the PHQ9, and offered management options including counseling should the patient's symptoms increase. Follow-up instructions centered around blood pressure monitoring and lifestyle adjustments to support cardiovascular health. Orders: Orders Influenza [id number] Immunization Today Z23 - Encounter for immunization Microalbumin, Random (w Creat) 4 Months R80.9 - Proteinuria, unspecified Lipid Panel 4 Months E78.5 - Hyperlipidemia, unspecified Comprehensive [place]. Panel Fast 4 Months N18.30 - Chronic kidney disease, stage 3 unspecified Medications: New losartan 25 mg PO DAILY 90 tabs 1RF 90 days Patient Instructions: - Monitor blood pressure at home and record readings to bring to follow-up. - Consider smoking cessation options and discuss potential benefits. - Return in three weeks for blood pressure reevaluation and medication assessment. - Schedule bloodwork appointment in four months; instructions will be provided. - Continue to manage mild depressive symptoms and seek further counseling if necessary. Quality Reporting (2019) Fall Risk Screening ([facility] 139) Fall risk assessment: No Falls in past year Depression/Bipolar (159/160/161/177) PHQ-9: Total score: 4 Coding Level of Care Code Medicare First (G0438) Diagnoses Encounter for Medicare annual wellness exam Z00.00 CKD (chronic kidney disease) stage 3, GFR 30-59 ml/min N18.30 Additional Codes ARTURO-7 Assessment Billing - ARTURO-7 Assessment Tool: ARTURO-7 Assessment 40507 ([id number]) PHQ-9 - 94748 - PHQ-9 Billing: Yes ([id number]) Time Spent (min) 33
[2024-04-19 12:27] VITALS: BP 150/92; BMI 22.0
--- OUTSIDE RECORDS SUMMARY | 2024-04-19 13:24 | XMS_ITS | Clinical Summary ---
Author Organization [facility] Facility Address [address] [place] [id number] Care Team Providers Care Set Off Blocker Name Role Phone Opal Heath MD Primary Care Provider [phone] Family History Medical History Relation Comments Cancer Father esophageal Diabetes Mother Hypertension Mother Hypertension Sibling Relation Status Comments Father Mother Alive Sibling Social History Tobacco Use Types Packs/Day Years Used Date Smoking Tobacco: Former Sex and Gender Information Value Date Recorded Sex Assigned at Not on file Legal Sex Male 4:56 PM EST Gender Identity Not on file Sexual Orientation Not on file Last Filed Vital Signs Vital Sign Reading Time Taken Comments Blood Pressure 112/70 04/04/2019 12:00 PM EST Pulse 93 04/04/2019 12:00 PM EST Temperature - - Respiratory Rate - - Oxygen Saturation 99% 04/04/2019 12:00 PM EST Inhaled Oxygen Concentration - - Weight 83.2 kg (183 lb 6.4 oz) 04/04/2019 12:00 PM EST Height 182.9 cm (6') 04/04/2019 12:00 PM EST Body Mass Index 24.87 04/04/2019 12:00 PM EST Plan of Treatment Health Maintenance Due Date Last Done Comments Pneumococcal Vaccine: 65+ Ye ars (1 of 2 - PCV) 1966 Pneumococcal Vaccine: Pediat rics (0 to 5 Years) and At-Risk Patients (6 to 64 Years) (1 of 2 - PCV) 1966 Colorectal Cancer Screening: Annual FOBT 12/07/2007 Colorectal Cancer Screening: Colonoscopy 12/07/2007 Colorectal Cancer Screening: Sigmoidoscopy 12/07/2007 Influenza Vaccine (#1) 2023 Hepatitis B Vaccine Aged Out No longe r eligible based on patient's age to complete this topic Care Teams Set Off Blocker Relationship Specialty Start Date End Date Opal Heath MD [address] [place], [place] PCP - General 03/19/20
--- OUTSIDE RECORDS SUMMARY | 2024-04-19 13:24 | XMS_ITS | Clinical Summary ---
Author Organization [facility] Address [address] [place] [address] Care Team Providers Care Phlebotomist Lab Assistant Name Role Phone Opal Heath MD Primary Care Provid er Social History Tobacco Use Types Packs/Day Years Used Date Smoking Tobacco: Never Assessed Sex and Gender Information Value Date Recorded Sex Assigned at Not on file Gender Identity Not on file Sexual Orientation Not on file Plan of Treatment Health Maintenance Due Date Last Done Comments Hepatitis C Screening 1960 COVID-19 Vaccine (#1) 06/06/1959 Depression Screening 1970 Preventative Health Evaluation 1976 DTap / Tdap / Td (1 - Tdap) 1977 Colon Cancer Screening (Colonoscopy) 12/07/2003 Shingrix-Zoster Vaccine (1 of 2) 2008 Influenza Vaccine (#1) 2023 Fall Risk Assessment 12/07/2023 Pneumococcal Vaccine (1 of 1 - PCV) 12/07/2023 RSV Adult > 60+ Yrs or Pregn ant (1 - 1-dose 75+ series) 2033 Hepatitis B Vaccines Aged Out No long er eligible based on patient's age to complete this topic Pneumococcal Vaccine Aged Out No long er eligible based on patient's age to complete this topic RSV Ped < 20 months Aged Out No longe r eligible based on patient's age to complete this topic Care Teams Phlebotomist Lab Assistant Relationship Specialty Start Date End Date Opal Heath MD [address] [place] [address] , [address] Physician Associ D[facility]A: [facility] [place] [address] PCP - General Internal Medicine 04/24/20
== END 2024-04-19 12:54 | disposition home or self-care (01) ==
PROVIDERS: PCP Internal Medicine; Visit Provider Internal Medicine
DX: Z00.00 Encounter for general adult medical examination without abnormal findings (principal); N18.30 Chronic kidney disease, stage 3 unspecified; Z23 Encounter for immunization

== ENCOUNTER → 2024-04-19 11:57 | Outpatient (BNVA) | payer MEDICARE, MEDICAID, SELFPAY | PROVIDERS: PCP Internal Medicine; Visit Provider Internal Medicine | DX: Z00.00 Encounter for general adult medical examination without abnormal findings (principal); N18.30 Chronic kidney disease, stage 3 unspecified | CPT/HCPCS: 96127 ==

== ENCOUNTER → 2024-05-27 08:34 | Outpatient (BNVA) | payer MEDICARE, MEDICAID, SELFPAY | PROVIDERS: PCP Internal Medicine ==

== ENCOUNTER 2024-08-12 06:52 | Outpatient (REF) | payer MEDICARE, MEDICAID, SELFPAY ==
[2024-08-12 07:42] LABS: Creatinine Urine 177.04 mg/dL; Microalbum/Creatinine Ratio Ur 234.9 ug/mg cr (<30)
[2024-08-12 07:43] LABS: Alanine Aminotransferase 18 U/L (0-40); Albumin Level 4.5 g/dL (3.5-5.0); Alkaline Phosphatase 54 U/L (39-117); Anion Gap 12 (12-20); Aspartate Amino Transferase 17 U/L (5-37); Bilirubin Total 0.9 mg/dL (0.0-1.0); Blood Urea Nitrogen 15 mg/dL (9-16); Carbon Dioxide 28 mmol/L (22-29); Chloride 110 mmol/L (96-108); Cholesterol 152 mg/dL (<200); Estimated Glomerular Filt Rate 56; Glucose Fasting 133 mg/dL (60-99); HDL Cholesterol 37 mg/dL (>40); LDL Cholesterol Calculated 96 mg/dL (<100); Potassium 4.6 mmol/L (3.3-5.1); Sodium 145 mmol/L (135-145); Total Protein 6.9 g/dL (6.5-8.0); Triglycerides 99 mg/dL (<150)
== END 2024-08-12 06:53 | disposition home or self-care (01) ==
LOC: HO.LAB 06:52
PROVIDERS: PCP Internal Medicine; Visit Provider Internal Medicine
DX: N18.30 Chronic kidney disease, stage 3 unspecified (principal); R80.9 Proteinuria, unspecified; E78.5 Hyperlipidemia, unspecified
CPT/HCPCS: 36415; 80053; 80061; 82043; 82570

== ENCOUNTER 2024-08-16 13:12 | Outpatient (AMB) | payer MEDICARE, MEDICAID, SELFPAY ==
--- NOTE | 2024-08-16 13:23 | A.OFFPC_ITS ---
Vital Signs 08/16/24 13:24 Height 6 ft Weight 162 lb BMI 22.0 BP 140/80 H Blood Pressure Location Lt brachial Position Sitting Intake Visit Reasons: dm Intake Note: Patient here for a follow up DM Air Pollution Engineer Required: No Accompanied by: Self / Same As Patient Allergies No Known Allergies Allergy (Verified 08/16/24 13:50) Medication List - Last Reconciled 08/16/24 by Opal Carter MD blood sugar diagnostic (FreeStyle Lite Strips) USE 1 TEST STRIP ONCE DAILY blood sugar diagnostic (OneTouch Ultra Test strips) Use 1 test strip once a day blood-glucose meter (FreeStyle [place] kit) As directed blood-glucose meter (OneTouch Ultra2 Meter) As directed gabapentin 1,600 mg PO BEDTIME hydroxyzine HCl 25 mg PO BEDTIME hydroxyzine HCl 25 mg PO Q8H PRN 30 days lancets (OneTouch UltraSoft 2 Lancet) Use 1 lancet once a day lancets (FreeStyle Lancets) Use 1 lancet once a day losartan 25 mg PO DAILY 90 days Tobacco use date assessed: 03/17/24 Fall risk assessment: No Falls in past year Last assessed Fall Risk: 08/16/24 Dental Screening Dental Screen Date: 03/17/24 HPI HPI Comments History of Present Illness Details The patient is a 63-year-old male presenting for follow-up regarding diabetes mellitus, essential hypertension, and pure hypercholesterolemia. His current diabetes management involves no medication, with an A1c at 5.6%, suggesting stable control. He continues to manage essential hypertension with losartan, although elevated readings were noted today. His medical background includes microalbuminuria, which will necessitate a referral to Nephrology for further assessment. Additionally, the patient is being observed for BPH and has a deep adrenal mass. He has reported episodes of chest pain and shortness of breath and is a smoker. His last urological consultation occurred in May this year. Dietary changes were giving for pure hypercholesterolemia. Has chronic kidney disease stage 3 that has been stable. [facility] Medical History (Updated 08/16/24 @ 14:05 by Opal Carter MD) Diabetes mellitus CHRIS (acute kidney injury) Erectile dysfunction associated with type 2 diabetes mellitus Erectile dysfunction CKD (chronic kidney disease) stage 3, GFR 30-59 ml/min Lumbar spondylosis Microalbuminuria Erectile dysfunction CKD (chronic kidney disease) Dyslipidemia Essential hypertension Smoker Right shoulder pain Lumbar radiculopathy Cervical radiculopathy History of heroin abuse Thoracic back pain Cervical pain Pain in right hand Pain in right knee Pain in right shoulder Surgical History Hx of neck surgery History of shoulder surgery History of hydrocelectomy Hx of cholecystectomy H/O shoulder surgery History of knee surgery H/O hand surgery Family History Father Esophageal cancer Mother Diabetes Hypertension Dementia Social History Household Members: Family Household Members Other:: lives w ex-, daughter & son lives upstairs Housing: House Do you presently have visiting nurse or other home services: No Alcohol intake: former Patient Tobacco Use Status: Current everyday Tobacco user Tobacco use type: Cigarette Cigarette Packs Per Day: 0.5 Cigarettes Per Day: 10 e-Cigarette/Vaping Use: Never Used Second Hand Smoke Exposure: Yes service: No Current occupational status: disabled 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 1. Little interest or pleasure in doing things: not at all 2. Feeling down, depressed, or hopeless: not at all 3. Trouble falling or staying asleep, or sleeping too much: not at all 4. Feeling tired or having little energy: not at all 5. Poor appetite or overeating: not at all 6. Feeling bad about yourself - or that you are a failure or have let yourself or your family down: not at all 7. Trouble concentrating on things, such as reading the newspaper or watching television: not at all 8. Moving or speaking so slowly that other people could have noticed. Or the opposite - being so fidgety or restless that you have been moving around a lot more than usual: not at all 9. Thoughts that you would be better off or of hurting yourself in some way: not at all Total score: 0 Depression Screening Interpretation: Negative Depression Screening Done: Yes 14588 - PHQ-9 Billing: Yes Source: Developed by Drs. Levi Palomares, Hannah Richard, Daniel Hicks and colleagues, with an educational evelyne from [employer]. Thrive Questionnaire Date Thrive assessed: 04/19/24 I am a: Patient What is your living situation today?: I choose not to answer this question Within the past 12 months, did the food you bought not last and you didn't have the money to get more?: I choose not to answer this question Within the past 12 months, did you worry whether your food would run out before you got money to buy more?: I choose not to answer this question Do you have trouble paying for medicines?: I choose not to answer this question Do you have trouble getting transportation to medical appointments?: I choose not to answer this question Do you have trouble paying your heating and electricity bill?: I choose not to answer this question Do you have trouble taking care of your child, family member or friend?: No Do you have trouble with day-to-day activities such as bathing, preparing meals, shopping, managing finances, etc.?: No Are you currently unemployed and looking for a job?: No Are you interested in more education?: No Please select the resources that you would like help with: Food Currently or been in a relationship where the following occur: I choose not to answer THRIVE Score: 0 AUDIT C Alcohol Use Questionnaire (AUDIT-C) 1. How often do you have a drink containing alcohol?: Never Total Score: 0 Score Reviewed/Action Taken: No ARTURO-7 AMB Questionnaire ARTURO-7 Date ARTURO - 7 assessed: 04/19/24 Feeling nervous, anxious, or on edge: 0 = Not at all Not being able to stop or control worryin = Not at all Worrying too much about different things: 0 = Not at all Trouble relaxin = Not at all Being so restless that it is hard to sit still: 0 = Not at all Becoming easily annoyed or irritable: 0 = Not at all Feeling afraid as if something awful might happen: 0 = Not at all Total ARTURO-7 score (0-4 normal; 5-9 mild; 10-14 moderate; 15-21 severe): 0 Source: Developed by Hannah Tovar, Daniel Hicks and colleagues, with an educational evelyne from [employer]. ARTURO-7 Assessment Billing ARTURO-7 Assessment Tool: ARTURO-7 Assessment 50181 Review of Systems Const All systems reviewed & are unremarkable except as noted in HPI and below Card Denies chest pain at rest, Denies chest pain with activity, Denies edema, Denies irregular heart rhythm, Denies claudication, Denies dyspnea, Denies dyspnea on exertion, Denies orthopnea, Denies paroxysmal nocturnal dyspnea and Denies slow heart rate Resp Denies cough, Denies dyspnea and Denies dyspnea on exertion GI Denies abdominal pain, Denies change in bowel habits, Denies excessive flatus, Denies nausea and Denies vomiting Denies urinary hesitancy, Denies urinary incontinence and Denies urinary urgency Musc Denies abnormal gait, Denies atrophy, Denies deformity and Denies limited range of motion Skin/Breast Denies bleeding lesions, Denies changing lesions and Denies rash Neuro Denies abnormal gait, Denies behavioral changes and Denies lack of coordination Psych Denies behavioral changes Physical exam (Primary Care) Vital Signs: Last Vital Signs BP 140/80 H 08/16/24 13:24 BMI result Body Mass Index 22.0 Tobacco/Smoking Status: Tobacco use Status Tobacco use date assessed 03/17/24 08/16/24 13:28 Patient Tobacco Use Status Current everyday Tobacco 08/16/24 13:28 Tobacco use type Cigarette 08/16/24 13:28 e-Cigarette/Vaping Use Never Used 08/16/24 13:28 Are you ready to quit: No Tobacco cessation counseling provided: Yes Items discussed: Nicotine replacement and QuitWorks Relapse Prevention: discussed the importance of a supportive environment, discussed extending NRT, discussed negative mood or depression after quitting, weight gain after smoking is common and discussed dietary, exercise and/or lifestyle changes Number of minutes spent counselin CPT code: 74097 - 4-10 Minutes PHQ-9: PHQ-9 Score PHQ-9: Total score 0 08/16/24 13:28 Depression Screening Interpretation: Negative Thrive Assessment: Date of Thrive Assessment Date Thrive assessed 04/19/24 08/16/24 13:28 Currently or been in a relationship where the following occur: I choose not to answer Resp Effort & Inspection: normal respiratory effort Auscultation: clear to auscultation bilaterally Cardio Jugular venous distension: no JVD Rate: regular rate Rhythm: regular rhythm Heart sounds: S1 normal heart sound present and S2 normal heart sound present Extrem General: Yes full ROM Coding Level of Care Code Est Pt Level 4 (03621) Complex EM visit Add On G2211 Diagnoses Microalbuminuria R80.9 CKD (chronic kidney disease) stage 3, GFR 30-59 ml/min N18.30 Essential hypertension I10 Dyslipidemia E78.5 Type 2 diabetes mellitus with hyperglycemia, without long-term current use of insulin E11.65 Diabetes mellitus type: type 2 Diabetes mellitus terminal operations manager insulin use: without terminal operations manager use Diabetes mellitus complication status: with hyperglycemia Additional Codes PHQ-9 - 86378 - PHQ-9 Billing: Yes ([id number]) ARTURO-7 Assessment Billing - ARTURO-7 Assessment Tool: ARTURO-7 Assessment 04354 ([id number]) Vital Signs *Quality* - CPT code: 79530 - 4-10 Minutes ([id number]) Time Spent (min) 23 Assessment & Plan Assessment & Plan (1) Microalbuminuria: Code(s): R80.9 - Proteinuria, unspecified Category: Medical (2) CKD (chronic kidney disease) stage 3, GFR 30-59 ml/min: Comment: few kidney cysts, on right Code(s): N18.30 - Chronic kidney disease, stage 3 unspecified Category: Medical (3) Essential hypertension: Code(s): I10 - Essential (primary) hypertension Category: Medical (4) Dyslipidemia: Code(s): E78.5 - Hyperlipidemia, unspecified Category: Medical (5) Diabetes mellitus: Code(s): E11.9 - Type 2 diabetes mellitus without complications Category: Medical Qualifiers: Diabetes mellitus type: type 2 Diabetes mellitus terminal operations manager insulin use: without terminal operations manager use Diabetes mellitus complication status: with hyperglycemia Qualified Code(s): E11.65 - Type 2 diabetes mellitus with hyperglycemia Plan Hypertension treatment continues with losartan despite today's increased reading, requiring monitoring. Management of pure hypercholesterolemia maintains as per established guidelines. Referral to morphology for assessment of myopathy pneumonia is planned, along with evaluation strategies for PPH and the adrenal mass. Smoking cessation will be an ongoing discussion given his symptoms. Overall, a multidisciplinary approach with precise monitoring and evaluation is anticipated to ensure optimal health outcomes.: Patient was informed and verbally consented to the use of an ambient scribe for clinic note documentation during this visit. I discussed with the patient the importance of monitoring his blood pressure regularly and adherence to his anti-hypertensive medication regimen. The patient's control of diabetes without medication is commendable, and we reviewed lifestyle modifications to sustain this. We addressed chest pain and shortness of breath, emphasizing the need for vigilant observation given his smoking history. I proposed a referral to Nephrology for further analysis of his microalbuminuria. BPH and the deep adrenal mass were noted for further investigation, ensuring strategic follow-up with specialists. Smoking cessation was highlighted as crucial for cardiovascular health, and I aim to provide support in this area in future consultations. Orders: Orders Microalbumin, Random (w Creat) Today R80.9 - Proteinuria, unspecified Comprehensive [place]. Panel Fast Today N18.30 - Chronic kidney disease, stage 3 unspecified AMB Hemoglobin A1c Today R73.01 - Impaired fasting glucose Lipid Panel Today E78.5 - Hyperlipidemia, unspecified Referrals Nephrology Referral R80.9 - Proteinuria, unspecified Patient Instructions: - Continue taking blood pressure medication (losartan) as prescribed. - Monitor blood pressure regularly at home and record readings. - Maintain current lifestyle and diet to support diabetes management. - Follow referral to morphology for pneumonia evaluation. - Report any increase in chest pain or shortness of breath immediately. - Consider smoking cessation options; seek resources.
[2024-08-16 13:24] VITALS: BP 140/80; BMI 22.0
--- OUTSIDE RECORDS SUMMARY | 2024-08-16 15:36 | XMS_ITS | Clinical Summary ---
Author Organization [facility] Facility Address [address] [place] [id number] Care Team Providers Care Oxidation Operator Name Role Phone Opal Heath MD Primary Care Provider [phone] Family History Medical History Relation Comments Cancer [...] Due Date Last Done Comments Pneumococcal Vaccine: 50+ Ye ars (1 of 2 - PCV) 1977 Colorectal Cancer Screening: Annual FOBT 12/07/2007 Colorectal Cancer Screening: Colonoscopy 12/07/2007 Colorectal Cancer Screening: Sigmoidoscopy 12/07/2007 Influenza Vaccine (Season Ended) 2024 Hepatitis B Vaccine Aged Out No longe r eligible based on patient's age to complete this topic Care Teams Oxidation Operator Relationship Specialty Start Date End Date Opal Heath MD [address] [place], [place] PCP - General 03/19/20
== END 2024-08-16 14:03 | disposition home or self-care (01) ==
LOC: HO.HMCH 13:13
PROVIDERS: PCP Internal Medicine; Visit Provider Internal Medicine
DX: R80.9 Proteinuria, unspecified (principal); N18.30 Chronic kidney disease, stage 3 unspecified; I10 Essential (primary) hypertension; E78.5 Hyperlipidemia, unspecified; E11.65 Type 2 diabetes mellitus with hyperglycemia

== ENCOUNTER → 2024-08-16 13:12 | Outpatient (BNVA) | payer MEDICARE, MEDICAID, SELFPAY | PROVIDERS: PCP Internal Medicine; Visit Provider Internal Medicine | DX: R80.9 Proteinuria, unspecified (principal); I12.9 Hypertensive chronic kidney disease with stage 1 through stage 4 chronic kidney disease, or unspecified chronic kidney disease; E11.22 Type 2 diabetes mellitus with diabetic chronic kidney disease; N18.30 Chronic kidney disease, stage 3 unspecified; E11.65 Type 2 diabetes mellitus with hyperglycemia; E78.5 Hyperlipidemia, unspecified | CPT/HCPCS: 96127; 99212 ==

== ENCOUNTER 2024-08-30 10:47 | Outpatient (AMB) | payer MEDICARE, SELFPAY ==
[2024-08-30 10:51] VITALS: BP 150/84; PULSE 100; O2SAT 97; BMI 21.7
--- NOTE | 2024-08-30 10:51 | HO.NEPHOV_ITS ---
Vital Signs 08/30/24 10:51 Height 6 ft Weight 160 lb BMI 21.7 BP 150/84 H Blood Pressure Location Lt brachial Position Sitting Pulse 100 Pulse Source Pulse Oximeter Pulse Oximetry (%) 97 Oxygen Delivery Method Room Air Intake Visit Reasons: INP: Proteinuria/ Conf Real Estate Photographer Required: No Accompanied by: Self / Same As Patient Allergies No Known Allergies Allergy (Verified 08/30/24 10:56) Medication List - Last Reconciled 08/30/24 by Cecilio Kimbrough MD blood sugar diagnostic (FreeStyle Lite Strips) USE 1 TEST STRIP ONCE DAILY blood sugar diagnostic (OneTouch Ultra Test strips) Use 1 test strip once a day blood-glucose meter (FreeStyle [place] kit) As directed blood-glucose meter (OneTouch Ultra2 Meter) As directed gabapentin 2,800 mg PO BEDTIME hydroxyzine HCl 25 mg PO Q8H PRN 30 days lancets (OneTouch UltraSoft 2 Lancet) Use 1 lancet once a day lancets (FreeStyle Lancets) Use 1 lancet once a day losartan 25 mg PO DAILY 90 days rosuvastatin 40 mg PO BEDTIME tadalafil 20 mg PO DAILY PRN tadalafil 10 mg PO DAILY PRN HPI Comments Details: The patient is a 63-year-old male presenting with proteinuria. Proteinuria was identified by the patient's primary care physician, prompting a referral to nephrology for further evaluation. The patient denies a history of diabetes, , but acknowledges a past episode of elevated blood glucose levels that led to a brief period of metformin use. The patient has a history of hypertension, which is managed with losartan 25 mg daily. Blood pressure readings are typically elevated in clinical settings, which was attributed to white coat syndrome, but are normal at home. Renal cysts have been monitored by urology, with a biopsy performed in 2021 confirming no malignancy. The patient reports seeing a urologist annually for follow-up. The patient experienced acute kidney failure in February 2023, Creatinine peaked at 5.0 , which resolved. Current kidney function is improved, with an estimated glomerular filtration rate of 56%. The patient has a history of a spermatocele, which was surgically treated approximately 8-10 years ago. Chronic back pain, arthritis, and a pinched nerve are managed with gabapentin 800 mg for pain relief. h/o Hep C has been documented in EHR [facility] Medical History (Updated 08/16/24 @ 14:05 by Opal Carter MD) Diabetes mellitus CHRIS (acute kidney injury) Erectile dysfunction associated with type 2 diabetes mellitus Erectile dysfunction CKD (chronic kidney disease) stage 3, GFR 30-59 ml/min Lumbar spondylosis Microalbuminuria Erectile dysfunction CKD (chronic kidney disease) Dyslipidemia Essential hypertension Smoker Right shoulder pain Lumbar radiculopathy Cervical radiculopathy History of heroin abuse Thoracic back pain Cervical pain Pain in right hand Pain in right knee Pain in right shoulder Surgical History Hx of neck surgery History of shoulder surgery History of hydrocelectomy Hx of cholecystectomy H/O shoulder surgery History of knee surgery H/O hand surgery Family History Father Esophageal cancer Mother Diabetes Hypertension Dementia Social History Household Members: Family Household Members Other:: lives w ex-, daughter & son lives upstairs Housing: House Do you presently have visiting nurse or other home services: No Alcohol intake: former Patient Tobacco Use Status: Current everyday Tobacco user Tobacco use type: Cigarette Cigarette Packs Per Day: 0.5 Cigarettes Per Day: 10 e-Cigarette/Vaping Use: Never Used Second Hand Smoke Exposure: Yes service: No Current occupational status: disabled 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 Lungs entry equal no rales. Heart S1-S2 heard no gallop or rub. Abdomen soft nontender. Neuro alert awake oriented. No asterixis. Extremities no edema. Results Reviewed Nephrology Results: Sodium, (135-145) 145 mmol/L 08/12/24 Potassium, (3.3-5.1) 4.6 mmol/L 08/12/24 Chloride, (96-108) 110 mmol/L H 08/12/24 Carbon Dioxide, (22-29) 28 mmol/L 08/12/24 BUN, (9-16) 15 mg/dL 08/12/24 Creatinine, (0.5-1.4) 1.28 mg/dL 08/12/24 Calcium, (8.4-10.2) 10.0 mg/dL 08/12/24 Urine Creatinine 177.04 mg/dL 08/12/24 Renal US 06/16/23 Assessment & Plan Assessment & Plan (1) Essential hypertension: Code(s): I10 - Essential (primary) hypertension Category: Medical (2) CKD (chronic kidney disease): Code(s): N18.9 - Chronic kidney disease, unspecified Category: Medical Qualifiers: Chronic kidney disease stage: stage 3 (moderate) Chronic kidney disease stage 3 subtype: stage 3a (GFR 45-59) Qualified Code(s): N18.31 - Chronic kidney disease, stage 3a (3) Microalbuminuria: Code(s): R80.9 - Proteinuria, unspecified Category: Medical Plan Work up initiated for proteinuria including - A 24-hour urine collection and additional blood tests/serologies will be performed to assess kidney function and identify potential contributing factors. The patient is advised to continue current medications, including losartan, which may help reduce proteinuria. Dietary modifications are recommended, particularly reducing sugar intake, as the patient reports consuming high-sugar foods and beverages. The patient is encouraged to maintain a low-salt diet to support blood pressure management. Follow-up is scheduled in approximately five weeks to review test results and adjust the treatment plan as necessary. Continue monitoring of Renal cyst by Urology Orders: Orders Basic Metabolic Panel Today I10 - Essential (primary) hypertension, N18.31 - Chronic kidney disease, stage 3a UA and rflx microscopic Today N18.31 - Chronic kidney disease, stage 3a Total Protein Urine Random Today N18.31 - Chronic kidney disease, stage 3a OPAL Reflex Titer and Pattern Today N18.31 - Chronic kidney disease, stage 3a Neutrophil Cytoplasma Ab Today N18.31 - Chronic kidney disease, stage 3a Myeloperoxidase Antibody Today N18.31 - Chronic kidney disease, stage 3a Proteinase 3 PR3 Antibodies Today N1.31 - Chronic kidney disease, stage 3a Anti Glomerular Basement Memb Today N1. - Chronic kidney disease, stage 3a Complement C4 Today N1. - Chronic kidney disease, stage 3a Immunoglobulin A Today - Chronic kidney disease, stage 3a Protein, 24 Hr Urine Group Today N1.31 - Chronic kidney disease, stage 3a Creatinine Urine Today N1. - Chronic kidney disease, stage 3a Uric Acid Today N1. - Chronic kidney disease, stage 3a Complement C3 Today - Chronic kidney disease, stage 3a Protein Electrophoresis, Serum Today . - Chronic kidney disease, stage 3a Creatinine Clearance Urine 24U Today N1. - Chronic kidney disease, stage 3a Coding Level of Care Code New Pt Level 4 (79587) Diagnoses Essential hypertension I10 Stage 3a chronic kidney disease N111.06 Chronic kidney disease stage: stage 3 (moderate) Chronic kidney disease stage 3 subtype: stage 3a (GFR 45-59) Microalbuminuria R80.9
--- OUTSIDE RECORDS SUMMARY | 2024-08-30 12:09 | XMS_ITS | Clinical Summary ---
Author Organization [facility] Facility Address [address] [place] [address] Care Team Providers Care Aquarium Specialist Name Role Phone Opal Heath MD Primary Care Provider [phone] Family History Medical History Relation Comments Cancer [...] age to complete this topic Care Teams Aquarium Specialist Relationship Specialty Start Date End Date Opal Heath MD [address] [place], [place] PCP - General 03/19/20
== END 2024-08-30 11:21 | disposition home or self-care (01) ==
LOC: HO.HKA 10:48
PROVIDERS: PCP Internal Medicine; Referring Provider Internal Medicine; Visit Provider Internal Medicine Hypertension Specialist
DX: I10 Essential (primary) hypertension (principal); N18.31 Chronic kidney disease, stage 3a; R80.9 Proteinuria, unspecified
CPT/HCPCS: 99204

== ENCOUNTER → 2024-08-30 10:47 | Outpatient (BNVA) | payer MEDICARE, MEDICAID, SELFPAY | PROVIDERS: PCP Internal Medicine; Referring Provider Internal Medicine; Visit Provider Internal Medicine Hypertension Specialist | DX: I12.9 Hypertensive chronic kidney disease with stage 1 through stage 4 chronic kidney disease, or unspecified chronic kidney disease (principal); N18.31 Chronic kidney disease, stage 3a; R80.9 Proteinuria, unspecified | CPT/HCPCS: 99202 ==

== ENCOUNTER 2024-09-03 07:49 | Outpatient (REF) | payer MEDICARE, SELFPAY ==
[2024-09-03 08:53] LABS: Alanine Aminotransferase 22 U/L (0-40); Albumin Level 4.9 g/dL (3.5-5.0); Alkaline Phosphatase 60 U/L (39-117); Anion Gap 14 (12-20); Aspartate Amino Transferase 21 U/L (5-37); Bilirubin Total 0.7 mg/dL (0.0-1.0); Blood Urea Nitrogen 15 mg/dL (9-16); Calcium 9.6 mg/dL (8.4-10.2); Carbon Dioxide 27 mmol/L (22-29); Chloride 108 mmol/L (96-108); Cholesterol 108 mg/dL (<200); Estimated Glomerular Filt Rate 56; Glucose Fasting 138 mg/dL (60-99); Glucose Random 138 mg/dL (60-115); HDL Cholesterol 42 mg/dL (>40); LDL Cholesterol Calculated 56 mg/dL (<100); Sodium 145 mmol/L (135-145); Total Protein 7.3 g/dL (6.5-8.0); Triglycerides 54 mg/dL (<150); Uric Acid 4.1 mg/dL (3.4-7.0)
[2024-09-03 09:54] LABS: Appearance Urine Clear; Color Urine Yellow; Glucose Urine UA Negative (Negative); Leukocyte Esterase Urine Small (1+) (Negative); Nitrite Urine Negative (Negative); PH 6.5 (5.0-9.0); Specific Gravity - Urine 1.015 (1.005-1.025); UMIC TRIGGER UA YES; Urine Blood Trace (Negative); Urine Ketones Trace mg/dL (Negative); Urine Protein 100 (2+) mg/dL (Neg-Trace)
[2024-09-03 09:57] LABS: Bacteria Urine None Seen (None Seen); Hyaline Casts Urine 0-2 /LPF (0-2); Squamous Epithelial Cell Urine 0-2 /HPF (0-2)
[2024-09-03 10:28] LABS: Total Volume 24 Hour Urine 800 mL
[2024-09-03 10:53] LABS: Creatinine, 24Hr Urine 1.5 G/Day (1.0-2.0); Creatinine, mg/dL 183.58; Protein 24 Hr Urine 384 mg/Day (<150); Protein mg/dL 48 mg/dL
[2024-09-03 10:54] LABS: Total Protein Urine Random 60 mg/dL (<12)
[2024-09-03 10:55] LABS: Creatinine Urine 192.11 mg/dL
[2024-09-03 12:29] LABS: Creatinine (CrCl) 1.29 mg/dL (0.5-1.4)
[2024-09-05 06:03] LABS: Immunoglobulin A 346 mg/dL (70-320)
[2024-09-05 16:27] LABS: Anti Glomerular Basement Memb <1.0 AI; Myeloperoxidase Antibody <1.0 AI; Proteinase 3 PR3 Antibodies <1.0 AI
[2024-09-05 18:04] LABS: Complement C3 103 mg/dL (82-185)
[2024-09-06 11:23] LABS: Anti Nuclear Antibody Screen NEGATIVE (NEGATIVE)
[2024-09-06 22:24] LABS: Prot Elec - Albumin 4.3 g/dL (3.8-4.8); Prot Elec - Alpha1 0.3 g/dL (0.2-0.3); Prot Elec - Alpha2 0.8 g/dL (0.5-0.9); Prot Elec - Beta 1 0.4 g/dL (0.4-0.6); Prot Elec - Beta 2 0.4 g/dL (0.2-0.5); Prot Elec - Gamma 0.7 g/dL (0.8-1.7); Prot Elec - Total Protein 6.9 g/dL (6.1-8.1)
[2024-09-07 13:08] LABS: Neutrophil Cyto Ab Screen NEGATIVE (NEGATIVE)
== END 2024-09-03 07:50 | disposition home or self-care (01) ==
LOC: HO.LAB 07:49
PROVIDERS: PCP Internal Medicine; Visit Provider Internal Medicine Hypertension Specialist
DX: I10 Essential (primary) hypertension (principal); N18.31 Chronic kidney disease, stage 3a; E78.5 Hyperlipidemia, unspecified; R80.9 Proteinuria, unspecified; N18.30 Chronic kidney disease, stage 3 unspecified
CPT/HCPCS: 36415; 80048; 80053; 80061; 81001; 82043; 82570; 82575; 82784; 83520; 84156; 84165; 84550; 86021; 86036; 86038; 86160

== ENCOUNTER 2024-10-04 14:56 | Outpatient (AMB) | payer MEDICARE, SELFPAY ==
[2024-10-04 15:00] VITALS: BP 132/82; PULSE 93; O2SAT 96; BMI 21.2
--- NOTE | 2024-10-04 15:00 | HO.NEPHOV_ITS ---
Vital Signs 10/04/24 15:00 Height 6 ft Weight 156 lb BMI 21.2 BP 132/82 Blood Pressure Location Rt brachial Position Sitting Pulse 93 Pulse Source Pulse Oximeter Pulse Oximetry (%) 96 Oxygen Delivery Method Room Air Intake Visit Reasons: 5 weeks fu City Assessor Required: No Accompanied by: Spouse Allergies No Known Allergies Allergy (Verified 10/04/24 15:03) Medication List - Last Reconciled 10/04/24 by Cecilio Kimbrough MD blood sugar diagnostic (FreeStyle Lite Strips) USE 1 TEST STRIP ONCE DAILY blood sugar diagnostic (OneTouch Ultra Test strips) Use 1 test strip once a day blood-glucose meter (FreeStyle [place] kit) As directed blood-glucose meter (OneTouch Ultra2 Meter) As directed gabapentin 2,800 mg PO BEDTIME hydroxyzine HCl 25 mg PO Q8H PRN 30 days lancets (OneTouch UltraSoft 2 Lancet) Use 1 lancet once a day lancets (FreeStyle Lancets) Use 1 lancet once a day losartan 25 mg PO DAILY 90 days rosuvastatin 40 mg PO BEDTIME tadalafil 20 mg PO DAILY PRN tadalafil 10 mg PO DAILY PRN HPI Comments Details: The patient is a 63-year-old male presenting with proteinuria. Proteinuria was identified by the patient's primary care physician, prompting a referral to nephrology for further evaluation. The patient denies a history of diabetes, , but acknowledges a past episode of elevated blood glucose levels that led to a brief period of metformin use. The patient has a history of hypertension, which is managed with losartan 25 mg daily. Blood pressure readings are typically elevated in clinical settings, which was attributed to white coat syndrome, but are normal at home. Renal cysts have been monitored by urology, with a biopsy performed in 2021 confirming no malignancy. The patient reports seeing a urologist annually for follow-up. The patient experienced acute kidney failure in February 2023, Creatinine peaked at 5.0 , which resolved. Current kidney function is improved, with an estimated glomerular filtration rate of 56%. The patient has a history of a spermatocele, which was surgically treated approximately 8-10 years ago. Chronic back pain, arthritis, and a pinched nerve are managed with gabapentin 800 mg for pain relief. h/o Hep C has been documented in EHR 10/04/24 Doing well PFSH Medical History (Updated 08/16/24 @ 14:05 by Opal Carter MD) Diabetes mellitus CHRIS (acute kidney injury) Erectile dysfunction associated with type 2 diabetes mellitus Erectile dysfunction CKD (chronic kidney disease) stage 3, GFR 30-59 ml/min Lumbar spondylosis Microalbuminuria Erectile dysfunction CKD (chronic kidney disease) Dyslipidemia Essential hypertension Smoker Right shoulder pain Lumbar radiculopathy Cervical radiculopathy History of heroin abuse Thoracic back pain Cervical pain Pain in right hand Pain in right knee Pain in right shoulder Surgical History Hx of neck surgery History of shoulder surgery History of hydrocelectomy Hx of cholecystectomy H/O shoulder surgery History of knee surgery H/O hand surgery Family History Father Esophageal cancer Mother Diabetes Hypertension Dementia Social History Household Members: Family Household Members Other:: lives w ex-, daughter & son lives upstairs Housing: House Do you presently have visiting nurse or other home services: No Alcohol intake: former Patient Tobacco Use Status: Current everyday Tobacco user Tobacco use type: Cigarette Cigarette Packs Per Day: 0.5 Cigarettes Per Day: 10 e-Cigarette/Vaping Use: Never Used Second Hand Smoke Exposure: Yes service: No Current occupational status: disabled 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 Lungs entry equal no rales. Heart S1-S2 heard no gallop or rub. Abdomen soft nontender. Neuro alert awake oriented. No asterixis. Extremities no edema. Results Reviewed Nephrology Results: Sodium, (135-145) 145 mmol/L 09/03/24 Potassium, (3.3-5.1) 4.0 mmol/L 09/03/24 Chloride, (96-108) 108 mmol/L 09/03/24 Carbon Dioxide, (22-29) 27 mmol/L 09/03/24 BUN, (9-16) 15 mg/dL 09/03/24 Creatinine, (0.5-1.4) 1.29 mg/dL 09/03/24 Calcium, (8.4-10.2) 9.6 mg/dL 09/03/24 Urine Protein, (Neg-Trace) 100 (2+) mg/dL H 09/03/24 Urine Creatinine 192.11 mg/dL 09/03/24 Renal US 06/16/23 Assessment & Plan Assessment & Plan (1) Essential hypertension: Code(s): I10 - Essential (primary) hypertension Category: Medical (2) CKD (chronic kidney disease): Code(s): N18.9 - Chronic kidney disease, unspecified Category: Medical Qualifiers: Chronic kidney disease stage: stage 3 (moderate) Chronic kidney disease stage 3 subtype: stage 3a (GFR 45-59) Qualified Code(s): N18.31 - Chronic kidney disease, stage 3a (3) Microalbuminuria: Code(s): R80.9 - Proteinuria, unspecified Category: Medical (4) CKD (chronic kidney disease) stage 3, GFR 30-59 ml/min: Comment: few kidney cysts, on right Code(s): N18.30 - Chronic kidney disease, stage 3 unspecified Category: Medical Plan A 24-hour urine collection Shows Cr cl 79 ml/mt and protein of 324 blood tests/serologies - were normal The patient is advised to continue current medications, including losartan, which may help reduce proteinuria. Dietary modifications are recommended, particularly reducing sugar intake, as the patient reports consuming high-sugar foods and beverages. The patient is encouraged to maintain a low-salt diet to support blood pressure management. Continue monitoring of Renal cyst by Urology Orders: Orders Basic Metabolic Panel 6 Months I10 - Essential (primary) hypertension, N18.30 - Chronic kidney disease, stage 3 unspecified, R80.9 - Proteinuria, unspecified UA and rflx microscopic 6 Months I10 - Essential (primary) hypertension, N18.30 - Chronic kidney disease, stage 3 unspecified, R80.9 - Proteinuria, unspecified Total Protein Urine Random 6 Months I10 - Essential (primary) hypertension, N18.30 - Chronic kidney disease, stage 3 unspecified, R80.9 - Proteinuria, unspecified Creatinine Urine 6 Months I10 - Essential (primary) hypertension, N18.30 - Purchase Price Analyst valerie kidney disease, stage 3 unspecified, R80.9 - Proteinuria, unspecified Coding Level of Care Code Est Pt Level 4 (18464) Diagnoses Essential hypertension I10 Stage 3a chronic kidney disease N18.31 Chronic kidney disease stage: stage 3 (moderate) Chronic kidney disease stage 3 subtype: stage 3a (GFR 45-59) Microalbuminuria R80.9 CKD (chronic kidney disease) stage 3, GFR 30-59 ml/min N18.30
--- OUTSIDE RECORDS SUMMARY | 2024-10-04 15:47 | XMS_ITS | Clinical Summary ---
Author Organization [facility] Facility Address [address] [place] [address] Care Team Providers Care Network Technical Analyst Name Role Phone Opal Heath MD Primary Care Provider [phone] Family History Medical History Relation Comments Cancer [...] Cancer Screening: Sigmoidoscopy 12/07/2007 Influenza Vaccine (#1) 2024 Hepatitis B Vaccine Aged Out No longe r eligible based on patient's age to complete this topic Care Teams Network Technical Analyst Relationship Specialty Start Date End Date Opal Heath MD [address] [place], [place] PCP - General 03/19/20
--- OUTSIDE RECORDS SUMMARY | 2024-10-04 15:47 | XMS_ITS | Clinical Summary ---
Author Organization [facility] Address [address] [place] [address] Care Team Providers Care Analytical Lab Technician Name Role Phone Opal Heath MD Primary [...] 12/07/2003 Shingrix-Zoster Vaccine (1 of 2) 2008 Fall Risk Assessment 12/07/2023 Pneumococcal Vaccine (1 of 1 - PCV) 12/07/2023 Influenza Vaccine (#1) 2024 RSV Adult > 60+ Yrs or Pregn [...] age to complete this topic Care Teams Analytical Lab Technician Relationship Specialty Start Date End Date Opal Heath MD [address] [place] [address] , [address] Physician Associ D/B/A: [facility] [place] [address] PCP - General Internal Medicine 04/24/20
== END 2024-10-04 15:15 | disposition home or self-care (01) ==
LOC: HO.HKA 14:56
PROVIDERS: PCP Internal Medicine; Visit Provider Internal Medicine Hypertension Specialist
DX: I10 Essential (primary) hypertension (principal); N18.31 Chronic kidney disease, stage 3a; R80.9 Proteinuria, unspecified; N18.30 Chronic kidney disease, stage 3 unspecified
CPT/HCPCS: 99214

== ENCOUNTER → 2024-10-04 14:56 | Outpatient (BNVA) | payer MEDICARE, SELFPAY | PROVIDERS: PCP Internal Medicine; Visit Provider Internal Medicine Hypertension Specialist | DX: I11.0 Hypertensive heart disease with heart failure (principal); N18.31 Chronic kidney disease, stage 3a; R80.9 Proteinuria, unspecified | CPT/HCPCS: 99212 ==

== ENCOUNTER 2024-10-31 09:59 | Outpatient (AMB) | payer MEDICARE, SELFPAY ==
--- NOTE | 2024-10-31 10:22 | MHC.OFFVIS ---
Vital Signs 10/31/24 10:23 Height 6 ft Weight 156 lb BMI 21.2 BP 163/82 H Blood Pressure Location Lt brachial Position Sitting Respiration 15 Pulse 69 Pulse Source Pulse Oximeter Pulse Oximetry (%) 99 Oxygen Delivery Method Room Air Intake Visit Reasons: Med Refill/Check up President + Publisher Required: No Accompanied by: Spouse Allergies No Known Allergies Allergy (Verified 10/31/24 10:24) Medication List - Last Reconciled 10/31/24 by Sarahy Epstein LPN blood sugar diagnostic (FreeStyle Lite Strips) USE 1 TEST STRIP ONCE DAILY blood sugar diagnostic (OneTouch Ultra Test strips) Use 1 test strip once a day blood-glucose meter (FreeStyle [place] kit) As directed blood-glucose meter (OneTouch Ultra2 Meter) As directed gabapentin 2,800 mg PO BEDTIME hydroxyzine HCl 25 mg PO Q8H PRN 30 days lancets (diaDexusTouch UltraSoft 2 Lancet) Use 1 lancet once a day lancets (FreeStyle Lancets) Use 1 lancet once a day losartan 25 mg PO DAILY 90 days rosuvastatin 40 mg PO BEDTIME 90 days tadalafil 20 mg PO DAILY PRN tadalafil 10 mg PO DAILY PRN HPI HPI Med Refill/Check up: Details: History of Present Illness The patient is a 63-year-old male presenting with chronic lower back pain and leg pain & swelling. He reports a history of lower back pain radiating to his leg, causing swelling, which subsides with rest and medication. The patient has previously received injections for pain management, which provided temporary relief. The last TP injection lasted only four to five days. He notes that his body requires stronger doses for effective pain relief. The TFESI did relieve his leg pain for 3 months. Currently, he is taking gabapentin, which he finds helpful but limits its use to avoid interference with work. He takes one pill at night and increases the dose to two when experiencing severe pain. The patient is not diabetic and denies any history of diabetes. Pain Description - Onset: Pain has been ongoing for several years, with episodes of increased severity. - Quality: Described as a weight of pain radiating from the lower back to the leg. - Location: Primarily in the lower back, radiating to the leg. - Radiation: Pain radiates from the lower back to the leg. - Exacerbating factors: Activity increases pain severity. - Relieving factors: Rest and medication alleviate pain. - Interference: Pain affects mobility and daily activities. Physical Exam - Appears afebrile. - Alert and oriented. - Mood and affect appropriate. - Follows and participates in conversation appropriately. - Respiratory effort is unlabored. Pain Management - Affect: Pain impacts mobility and daily activities. - Analgesia: Currently using gabapentin, effective but requires careful dosing to avoid interference with work. - Adverse Effects: No specific adverse effects mentioned, but limits gabapentin use to avoid drowsiness at work. - Activities of Daily Living: Pain affects mobility and daily activities, but the patient remains active. - Aberrant Drug Related Behaviors: No aberrant behaviors reported. [facility], [facility] Medical History (Updated 08/16/24 @ 14:05 by Opal Carter MD) Diabetes mellitus CHRIS (acute kidney injury) Erectile dysfunction associated with type 2 diabetes mellitus Erectile dysfunction CKD (chronic kidney disease) stage 3, GFR 30-59 ml/min Lumbar spondylosis Microalbuminuria Erectile dysfunction CKD (chronic kidney disease) Dyslipidemia Essential hypertension Smoker Right shoulder pain Lumbar radiculopathy Cervical radiculopathy History of heroin abuse Thoracic back pain Cervical pain Pain in right hand Pain in right knee Pain in right shoulder Surgical History Hx of neck surgery History of shoulder surgery History of hydrocelectomy Hx of cholecystectomy H/O shoulder surgery History of knee surgery H/O hand surgery Family History Father Esophageal cancer Mother Diabetes Hypertension Dementia Social History Household Members: Family Household Members Other:: lives w ex-, daughter & son lives upstairs Housing: House Do you presently have visiting nurse or other home services: No Alcohol intake: former Patient Tobacco Use Status: Current everyday Tobacco user Tobacco use type: Cigarette Cigarette Packs Per Day: 0.5 Cigarettes Per Day: 10 e-Cigarette/Vaping Use: Never Used Second Hand Smoke Exposure: Yes service: No Current occupational status: disabled 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 - Consideration of right L4-5 TP injection for additional pain relief. - Prescribe gabapentin 800 mg nightly with four refills for continued pain management. Patient was informed and verbally consented to the use of an ambient scribe for clinic note documentation during this visit. Discussion Notes I discussed with the patient the plan to repeat the right L4-5 epidural transforaminal epidural steroid injection, which previously provided relief for his leg pain. We also considered a right L4-5 TP trigger point injection to further manage his pain. I prescribed gabapentin 800 mg nightly with four refills to ensure continued pain management. Patient Instructions - Continue taking gabapentin 800 mg at night as prescribed. - Schedule and attend the upcoming epidural injection appointment. - Monitor pain levels and report any changes or concerns. Medications: Changed From gabapentin 1 tab in AM 1 tab afternoon 1.5 at bedtime 2,800 mg PO BEDTIME To gabapentin 800 mg PO BEDTIME 90 tabs 4RF Coding Level of Care Code Est Pt Level 3 (81476) Diagnoses Lumbar radiculopathy M54.16
[2024-10-31 10:23] VITALS: BP 163/82; PULSE 69; RESP 15; O2SAT 99; BMI 21.2
--- OUTSIDE RECORDS SUMMARY | 2024-10-31 10:59 | XMS_ITS | Clinical Summary ---
Author Organization [facility] Facility Address [address] [place] [address] Care Team Providers Care Electron Beam Photo Mask Maker Name Role Phone Opal Heath MD Primary Care Provider [phone] Family History Medical History Relation Comments Cancer [...] age to complete this topic Care Teams Electron Beam Photo Mask Maker Relationship Specialty Start Date End Date Opal Heath MD [address] [place], [place] PCP - General 03/19/20
--- OUTSIDE RECORDS SUMMARY | 2024-10-31 10:59 | XMS_ITS | Clinical Summary ---
Author Organization [facility] Address [address] [place] [address] Care Team Providers Care Meat Grader Name Role Phone Opal Heath MD Primary [...] age to complete this topic Care Teams Meat Grader Relationship Specialty Start Date End Date Opal Heath MD [address] [place] [address] , [address] Physician Associ D/B/A: [facility] [place] [address] PCP - General Internal Medicine 04/24/20
== END 2024-10-31 10:42 | disposition home or self-care (01) ==
LOC: HO.PMC 10:00
PROVIDERS: PCP Internal Medicine; Visit Provider Internal Medicine
DX: M54.16 Radiculopathy, lumbar region (principal)
CPT/HCPCS: 99213

== ENCOUNTER → 2024-10-31 09:59 | Outpatient (BNVA) | payer MEDICARE, SELFPAY | PROVIDERS: PCP Internal Medicine; Visit Provider Internal Medicine | DX: M54.16 Radiculopathy, lumbar region (principal) | CPT/HCPCS: 99212 ==

== ENCOUNTER 2025-02-23 06:27 | Outpatient (REF) | payer MEDICARE, SELFPAY ==
--- NOTE | ~2025-02-23 | FL_ITS ---
EXAMINATION: FL GUIDANCE ONLY HISTORY: M54.16 - Radiculopathy, lumbar region COMPARISON: None available. TECHNIQUE: Fluoroscopy time: 24 seconds. Cumulative Dose: 7.10 mGy. DAP: 588.30 mGycm2 Images: 3. FINDINGS: Fluoroscopic spot films of the lumbar spine demonstrate a needle and contrast material in the region of the right L4-5 facet joint. FL/FL guidance in treatment room IMPRESSION: Fluoroscopy during procedure. Please see procedure report for additional information. Electronically signed by: Levi Han MD 02/23/2025 03:49 PM EST
--- OUTSIDE RECORDS SUMMARY | 2025-02-23 06:30 | XMS_ITS | Clinical Summary ---
Author Organization [facility] Prior to 08/06/[address] [place] [address] Care Team Providers Care Detective And Intelligence Analyst Name Role Phone Opal Heath MD [...] age to complete this topic Care Teams Detective And Intelligence Analyst Relationship Specialty Start Date End Date Opal Heath MD [address] [place] [address] , [address] Physician Associ D/B/A: [facility] [place] [address] PCP - General Internal Medicine 04/24/20
--- OUTSIDE RECORDS SUMMARY | 2025-02-23 06:30 | XMS_ITS | Clinical Summary ---
Author Organization [facility] Facility Address [address] [place] [address] Care Team Providers Care Audiometric Technician Name Role Phone Opal Heath MD Primary Care Provider Family History Medical History Relation Comments Cancer [...] age to complete this topic Care Teams Audiometric Technician Relationship Specialty Start Date End Date Opal Heath MD [address] [place], [place] PCP - General 03/19/20
== END 2025-02-23 06:28 | disposition home or self-care (01) ==
LOC: CF 06:27
PROVIDERS: Visit Provider Internal Medicine
DX: M54.16 Radiculopathy, lumbar region (principal)
CPT/HCPCS: 64483; J1100; J2003; Q9967

== ENCOUNTER 2025-02-23 12:26 | Outpatient (AMB) | payer MEDICARE, SELFPAY ==
--- OUTSIDE RECORDS SUMMARY | 2025-02-20 23:59 | XMS_ITS | Continuity of Care Document ---
Author Organization [facility] Address [address] [facility] [place] [address]- Care Team Providers Care Materials Planner/Production Planner Name Role Phone Not on Staff, PCP Primary Care Physician Unavail able Encounter 02/13/25 - 02/20/25 [facility] [address] [facility], [address] [place] [address]- Attending Physician: Eulalio Wallace MD Admitting Physician: Eulalio Wallace MD Referring Physician: Eulalio Wallace MD Encounter Type: OutPatient One Time Medications atorvastatin 10 mg oral tablet 1 tablet = 10 mg, By Mouth, Daily, # 30 tablet, 0 Refills, Maintenance, 06/19/21 6:49:00 AM EDT, Partial fill upon patient request if the prescription is for a schedule II opioid drug. Start Date: 06/19/21 Status: Ordered Medication Dispense Status: Completed Quantity: 30.0 Unit: tablet Total Allowed Fills: 1 Fills Dispensed: 0 lisinopril 5 mg oral tablet 5 mg, 1, tablet, By Mouth, Daily, # 30 tablet, Refills 0, Maintenance, 06/19/21 6:49:00 AM EDT, Partial fill upon patient request if the prescription is for a schedule II opioid drug. Start Date: 06/19/21 Status: Ordered Medication Dispense Status: Completed Quantity: 30.0 Unit: tablet Total Allowed Fills: 1 Fills Dispensed: 0 metFORMIN 500 mg oral tablet 1 tablet = 500 mg, By Mouth, Daily, with meals, # 30 tablet, 0 Refills, Maintenance, 06/19/21 6:48:00 AM EDT, Tablet, Partial fill upon patient request if the prescription is for a schedule II opioid drug. Start Date: 06/19/21 Status: Ordered Medication Dispense Status: Completed Quantity: 30.0 Unit: tablet Total Allowed Fills: 1 Fills Dispensed: 0 Results Radiology Reports * Exam Date Time Procedure Performing Provider Status 12/8/25 11:39 AM [employer] [facility] (Verified) Notes: ([employer] Translation[employer]) Reason For Exam: Cyst of kidney, acquired RESULT: [employer] Study performed at [address] Reason: 64-year-old male with Cyst of kidney, acquired. COMPARISON: 05/25/2024; renal mass protocol MRI Abdomen 02/18/2021. CT urograms 2019 and May 29, 2020. FINDINGS: Ultrasound evaluation of the kidneys including grayscale and color Doppler. Exam mildly limited by bowel gas. Right kidney: 11.9 cm in length. No hydronephrosis. Normal parenchymal thickness and echotexture. No stones. Complex 3.1 x 2.3 x 3.2 cm lesion in the interpolar region of the junction with the upper pole corresponding to the previously sampled lesion characterized as Bosniak 2F or 3 on comparison MRI, similar in size to 05/2024 and without significant change in size from 12/2020. Scattered simple cysts measuring up to 3.5 cm, similar to prior. A 2.2 x 2.2 x 1.8 cm cyst in the interpolar region contains a few thin incomplete septations. Left kidney: 11.5 cm in length. No hydronephrosis. Normal parenchymal thickness and echotexture. Nostones. No suspicious mass. Simple cyst measuring 1.1 x 1.1 x 1.1 cm in the upper pole. IMPRESSION: Complex 3.2 cm cystic RIGHT renal lesion, unchanged in size and status post image guided biopsy in 2021 without evidence of malignancy. Further follow-up as per urology. Additional bilateral renal cysts unchanged. WSN: [id number] Ordering Physician: Eulalio Wallace Dictated By: Trell Foy MD Dictated Date/Time: 02/14/25 8:42 am Reviewed By: Trell Foy MD Signed By: Trell Foy MD Signed Date/Time: 02/14/25 8:42 am Transcribed By: RILEY Transcribed Date/Time: 02/13/25 4:55 pm Social History Social History Type Response Sex Sex Representation Male (finding) Patient Care team information Care Team Personnel Name: Not on Staff, PCP Position: S Physician (General Medicine) Member Role: PCP Name: Lex Capellan RN Position: [facility] RN Member Role: Primary Care Nurse Name: Eulalio Wallace MD Position: [facility] Physician - Urology Med Service: Urology Member Role: Ordering Physician Address: [address] [place] [address] [place] [address] Telecom: Insurance Providers Guarantor name: DIXIE imedo [facility] Information #: 1 Payer: [facility] Payer Identifier: NA Member Number: [id number] Group Number: NA Subscriber Identifier: [id number] Relationship to Subscriber: self Coverage Type: Medicare Managed Care (Includes Medicare Advantage Plans) Coverage Verification Date: NA Telecom: NA Address:
[2025-02-23 12:38] VITALS: BP 138/82; PULSE 72; RESP 16; O2SAT 99
--- NOTE | 2025-02-23 12:38 | A.OFFVIS_ITS ---
Vital Signs 02/23/25 12:38 02/23/25 13:27 BP 138/82 140/84 H Blood Pressure Location Lt brachial Lt brachial Position Sitting Sitting Respiration 16 16 Pulse 72 65 Pulse Source Pulse Oximeter Pulse Oximeter Pulse Oximetry (%) 99 99 Oxygen Delivery Method Room Air Room Air Intake Visit Reasons: Right L4-L5 TFESI Cook Fry Required: No Allergies No Known Allergies Allergy (Verified 02/23/25 12:39) Medication List - Last Reconciled 02/23/25 by Sarahy Epstein LPN blood sugar diagnostic (FreeStyle Lite Strips) USE 1 TEST STRIP ONCE DAILY blood sugar diagnostic (OneTouch Ultra Test strips) Use 1 test strip once a day blood-glucose meter (FreeStyle [place] kit) As directed blood-glucose meter (OneTouch Ultra2 Meter) As directed gabapentin 800 mg PO BEDTIME hydroxyzine HCl 25 mg PO Q8H PRN 30 days lancets ([employer] UltraSoft 2 Lancet) Use 1 lancet once a day lancets (FreeStyle Lancets) Use 1 lancet once a day losartan 25 mg PO DAILY 90 days rosuvastatin 40 mg PO BEDTIME 90 days tadalafil 20 mg PO DAILY PRN tadalafil 10 mg PO DAILY PRN HPI HPI Right L4-L5 TFESI: Details: Patient presents for scheduled procedure. Denies any recent cough, cold, infec tion, fever or other significant changes in medical history since last office visit. [facility] Medical History (Updated 08/16/24 @ 14:05 by Opal Carter MD) Diabetes mellitus CHRIS (acute kidney injury) Erectile dysfunction associated with type 2 diabetes mellitus Erectile dysfunction CKD (chronic kidney disease) stage 3, GFR 30-59 ml/min Lumbar spondylosis Microalbuminuria Erectile dysfunction CKD (chronic kidney disease) Dyslipidemia Essential hypertension Smoker Right shoulder pain Lumbar radiculopathy Cervical radiculopathy History of heroin abuse Thoracic back pain Cervical pain Pain in right hand Pain in right knee Pain in right shoulder Surgical History Hx of neck surgery History of shoulder surgery History of hydrocelectomy Hx of cholecystectomy H/O shoulder surgery History of knee surgery H/O hand surgery Family History Father Esophageal cancer Mother Diabetes Hypertension Dementia Social History Household Members: Family Household Members Other:: lives w ex-, daughter & son lives upstairs Housing: House Do you presently have visiting nurse or other home services: No Alcohol intake: former Patient Tobacco Use Status: Current everyday Tobacco user Tobacco use type: Cigarette Cigarette Packs Per Day: 0.5 Cigarettes Per Day: 10 e-Cigarette/Vaping Use: Never Used Second Hand Smoke Exposure: Yes service: No Current occupational status: disabled 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 The patient was placed in the prone position on the fluoroscopy table. The lumbosacral area was prepped with chloraprep, allowed to dry and draped in sterile fashion. Using fluoroscopy, the skin overlying our target was anesthetized with 0.5% lidocaine. A 22 gauge 3.5 inch spinal needle was advanced to the safe triangle in the upper pole of the right L4/5 foramen. No paresthesias were elicited with needle placement and aspiration was negative for blood and CSF. Correct needle position was confirmed with approximately 1 ml contrast dye (Omnipaque 180 mg/ml) injected under real-time fluoroscopy. No evidence of vascular or intrathecal uptake was seen and there was both epidural and peripheral spread of the contrast agent. 10 mg dexamethasone plus 1 ml containing 0.5% lidocaine was slowly injected. The needle was flushed and removed. the same procedure was repeated for the remaining levels. The skin was cleansed and a sterile bandages were applied. The patient tolerated the procedure well and no complications were encountered. Following the procedure the patient's vital signs were stable. The patient was discharged home in good condition with post-procedural instructions. Time Out: Immediately prior to the procedure, the following was verbally confirmed that there is a signed consent form and that the correct patient, planned procedure, site and side are consistent with documentation and that necessary equipment and/or blood products are available prior to the start of the case. Complications: none EBL: <5 cc 12918 - Lumbar/Sacral Procedure code (CPT) selection complete Assessment & Plan Assessment & Plan (1) Lumbar radiculopathy: Code(s): M54.16 - Radiculopathy, lumbar region Category: Medical Plan Patient is status post right L4/5 TFESI. Patient tolerated procedure well and was discharged home in stable condition with discharge instructions. All questions were answered. We will follow-up via telephone or in clinic to assess response to therapy. A follow-up appointment was made during today's visit. Orders: Orders FL guidance in treatment room 02/23/25 M54.16 - Radiculopathy, lumbar region Coding Level of Care Code Procedure Only Diagnoses Lumbar radiculopathy M54.16 CPT Codes Transforaminal Epidural Steroid Inj - TESI 3: 26335 - Lumbar/Sacral ([id number])
[2025-02-23 13:27] VITALS: BP 140/84; PULSE 65; RESP 16; O2SAT 99
--- OUTSIDE RECORDS SUMMARY | 2025-02-23 16:15 | XMS_ITS | Clinical Summary ---
[facility] Address [address] [place] [id number] Care Team Providers Care Arts Therapist Name Role Phone Opal Heath MD Primary [...] age to complete this topic Care Teams Arts Therapist Relationship Specialty Start Date End Date Opal Heath MD [address] [place], [place] PCP - General 03/19/20
--- OUTSIDE RECORDS SUMMARY | 2025-02-23 16:15 | XMS_ITS | Clinical Summary ---
Author Organization [facility] Prior to 08/06/[address] [place] [id number] Care Team Providers Care Cessation Systems Outreach Specialist Name Role Phone Opal Heath MD [...] age to complete this topic Care Teams Cessation Systems Outreach Specialist Relationship Specialty Start Date End Date Opal Heath MD [address] [place] [address] , [address] Physician Associ D/B/A: [facility] [place] [address] PCP - General Internal Medicine 04/24/20
== END 2025-02-23 13:30 | disposition home or self-care (01) ==
LOC: HO.PMCPRC 12:26
PROVIDERS: PCP Internal Medicine; Visit Provider Internal Medicine
DX: M54.16 Radiculopathy, lumbar region (principal)
CPT/HCPCS: 64483